=== PATIENT | female | born 1940 | race Caucasian/White ===

== ENCOUNTER 2018-04-10 16:10 | Inpatient (IN) | payer MEDICARE, SELFPAY ==
[2018-04-10 16:11] VITALS: BP 135/80; PULSE 82; RESP 16; TEMP 36.6; O2SAT 99; BMI 40.8
--- NOTE | 2018-04-10 16:29 | CT_ITS ---
STUDY: CT ABDOMEN AND PELVIS WITHOUT CONTRAST REASON FOR EXAM: Female, 77 years old. Left lower quadrant pain. RADIATION DOSAGE (If Supplied By Facility): CTDIvol = ( ) mGy, DLP = ( ) mGycm TECHNIQUE: Transaxial images were obtained from the dome of the diaphragm to the symphysis pubis with oral contrast, and without intravenous contrast. Sagittal and coronal images were reconstructed. Individualized dose optimization techniques were used for this CT. COMPARISON: August 15, 2014 FINDINGS: The visualized lung bases are unremarkable. The visualized portions of the heart are within normal limits. Normal liver. There are surgical clips in the gallbladder fossa consistent with a prior cholecystectomy. Normal spleen. Normal pancreas. Normal bilateral adrenal glands. Normal right kidney. Normal left kidney. There is a small hiatal hernia. Normal small intestine. There is circumferential wall thickening of the descending and sigmoid colon. There are scattered diverticula throughout the sigmoid colon. There is non-visualization of the appendix. There is diffuse atherosclerotic calcification of the abdominal aorta, without a demonstrated aneurysm. Normal inferior vena cava. Normal retroperitoneum. Normal urinary bladder. There is absence of the uterus consistent with a prior hysterectomy. There is a fat-containing interstitial ventral hernia within the right upper abdomen that is grossly stable. There are diffuse degenerative changes of the visualized lumbar spine. CT/Abdomen/Pel W ORAL Cont Only IMPRESSION: Circumferential wall thickening of the descending and sigmoid colon with an appearance consistent with underlying colitis, etiologies include ischemic, infectious and inflammatory colitis. Atherosclerosis. Electronically Signed: Destiny Kenney MD at 19:07 EDT Tel , Service support ,
[2018-04-10] MEDS: Ondansetron 4 MG/2 ML Vial IV (16:46)
[2018-04-10] MEDS: 0.9% Normal Saline 1,000 ML 1000 ML IV (16:46)
[2018-04-10 16:48] LABS: Absolute Lymphocyte Count 1.65 X10^3/ul (0.83-4.51); Absolute Neutrophil Count 7.2 X10^3/uL (2.0-7.7); Basophil# 0.02 X10^3/uL; Basophil% 0.2 % (0-1); Eosinophil# 0.25 X10^3/uL; Eosinophils% 2.5 % (0-5); Hematocrit 41.2 % (37-47); Hemoglobin 13.9 g/dl (12.0-15.0); Lymphocyte # 1.65 X10^3/ul (4.0); Lymphocyte % 16.7 % (19-41); Mean Corp Hgb Conc 33.7 g/gl (32-36); Mean Corpuscular Volume 94.9 fL (81-99); Mean Platelet Vol. 10.3 fl (6.2-12.0); Monocyte# 0.77 X10^3/uL; Monocyte% 7.8 % (0-10); Neutrophil # 7.17 X10^3/uL (2.7-7.7); Neutrophil % 72.7 % (47-70); Platelet Count 191 K/mm3 (150-450); Red Blood Count 4.34 M/mm3 (4.2-5.4); White Blood Count 9.9 K/mm3 (4.4-11.0)
[2018-04-10 16:49] LABS: POSITIVE COUNT NO; POSITIVE DIFFERENTIAL NO; POSITIVE MORPHOLOGY NO
[2018-04-10 16:54] LABS: Mucous, Urine 0 SEEN /hpf (<or=2+); Red Blood Cells-Urine 0 SEEN /hpf (0-5)
[2018-04-10 17:10] LABS: Color, Urine Yellow (Yellow); Glucose, Dipstick Normal (Normal); Ketone-Dipstick Negative (Negative); Leukocyte Esterase-Dipstick 500 /ul (Negative); Nitrite-Dipstick Negative (Negative); Occult Blood-Urine 10 /ul (Negative); Protein-Dipstick 15 mg/dl (Negative); Specific Gravity, Urine 1.015 (1.002-1.030); Urine Bilirubin Dipstick Negative (Negative); Urine Clarity Sl. Cloudy (Clear); Urine Urobilinogen 4 mg/dl (Normal)
[2018-04-10 17:10] LABS: ALB/GLOB Ratio 0.8 RATIO (0.9-2.4); AST(SGOT) 21 U/L (15-37); Alanine Aminotransfer ALT/SGPT 25 U/L (13-56); Albumin, Serum 3.5 g/dL (3.2-5.0); Alkaline Phosphatase 83 U/L (45-117); Anion Gap 8 (5-15); BUN 37 mg/dL (7-18); BUN/Creat Ratio 21.8 RATIO (10-20); Chloride 103 mmol/L (98-107); EST Glomerular Filtration Rate 31 mL/min (>60); Est Glom Filt Rate - Afr Amer 37 mL/min (>60); Estimated Creatinine Clearance 23.17 ml/min; Globulin 4.3 g/dL (2.2-4.2); Glucose 103 mg/dL (74-106); Lipase 58 U/L (73-393); Potassium 3.9 mmol/L (3.5-5.1); Protein, Total 7.8 g/dL (6.4-8.2); Sodium Level 136 mmol/L (136-145)
[2018-04-10 17:16] LABS: Lactic Acid 1.1 mmol/L (0.4-2.0)
[2018-04-10 17:36] LABS: White Blood Cells >100 SEEN /hpf (0-5)
[2018-04-10 17:37] LABS: Bacteria 2+ /hpf (None Seen); Squamous Epithelial Cells - UA 10-25 SEEN /hpf (5-10)
[2018-04-10] MEDS: 0.9% Normal Saline 1,000 ML 125 ML IV (17:45)
[2018-04-10 18:20] VITALS: BP 129/74; PULSE 63; RESP 16; O2SAT 96
[2018-04-10 19:41] VITALS: BP 127/74; PULSE 80; RESP 20; O2SAT 97
[2018-04-10 20:09] VITALS: BP 127/74; PULSE 80; RESP 20; O2SAT 97
--- NOTE | 2018-04-10 20:28 | PCM.HP.STD ---
Problem List (1) Colitis Status: Acute (2) SHAHAB (acute kidney injury) Status: Acute (3) Gastroenteritis Status: Acute (4) Hypotension Status: Acute (5) Hypovolemia Status: Acute (6) Anxiety Status: Chronic (7) Bloating Status: Chronic (8) Calcium deficiency Status: Chronic (9) Restless leg syndrome Status: Chronic History of Present Illness Date of Admission: 04/10/18 Chief Complaint: Colitis The patient is a 77 year old female w/ h/o OA, sjogrens syndrome, RA, and obesity admitted for colitis. She had diarrhea on Friday. She had 10 BMs on Friday and toward the end of the day, she had bloody diarrhea. Over the course of the next day or two, she noted that her diarrhea improved. She has left lower abdominal pain. Pain is sharp but occasionally dull-aching. Nothing appeared to make it better or worse. Pain is so severe that it caused nausea. Pain is constant. Pain is not associated with any other symptoms. Pain is so severe that she is unable to keep food or water down and that she feels dizzy. She went to the ED for further workup. Past Medical History Past Medical History (Chronic Problems): Chronic Problems Vitamin C deficiency (Chronic) Shortness of breath (Chronic) Osteoarthritis of right knee (Chronic) Obesity (Chronic) Sjogrens syndrome (Chronic) HTN (hypertension) (Chronic) Rheumatoid arthritis (Chronic) Osteoarthritis (Chronic) B12 deficiency (Chronic) Bloating (Chronic) Hyperlipidemia (Chronic) Hypokalemia (Chronic) Nausea (Chronic) GERD (gastroesophageal reflux disease) (Chronic) Gastroparesis (Chronic) Dizziness (Chronic) Hypothyroidism (Chronic) Restless leg syndrome (Chronic) Iron deficiency anemia (Chronic) Atrophic vaginitis (Chronic) Overactive bladder (Chronic) Rash (Chronic) Calcium deficiency (Chronic) Anxiety (Chronic) Coronary artery disease (Chronic) Allergies adhesive Allergy (Verified 04/10/18 17:05) Unknown atorvastatin calcium [From Lipitor] Allergy (Verified 04/10/18 17:05) Unknown Iodinated Contrast- Oral and IV Dye [DYEE] Allergy (Verified 04/10/18 19:36) Angioedema ONLY IV CONTRAST DYE iodine Allergy (Verified 04/10/18 17:05) Unknown nitrofurantoin Allergy (Verified 04/10/18 17:05) Unknown piroxicam Allergy (Verified 04/10/18 17:05) Unknown Sulfa (Sulfonamide Antibiotics) Allergy (Verified 04/10/18 17:05) Unknown NARCOTICS Adverse Reaction (Uncoded 04/10/18 17:05) Vomiting Home Medications: Ambulatory Orders Medication Instructions Recorded Albuterol Inhaler [Ventolin Hfa] 2 puff INHALATION Q4H PRN PRN 08/15/14 Aspirin [Aspirin, Baby] 81 mg PO DAILY@0800 08/15/14 Calcium Carb/Vitamin D 1 tab PO DAILY@0800 08/15/14 [Caltrate-600 With Vit D Tab] Clobetasol Propionate/Emoll 30 gm TP MOWEFR 08/15/14 [Clobetasol Emollient 0.05% Crm] Gabapentin [Neurontin] 300 mg PO BID 08/15/14 Meclizine HCl 25 mg PO Q6H PRN 08/15/14 Nitroglycerin [Nitrostat] 0.4 mg SUBLINGUAL Q5M PRN 08/15/14 Ondansetron [Zofran Odt] 4 mg PO Q8H PRN PRN #20 tablet 08/17/14 Metoprolol Succinate [Toprol Xl] 50 mg PO DAILY 10/10/16 Pravastatin 20 mg PO DAILY 10/10/16 Acetaminophen [Tylenol Extra 1,000 mg PO Q8H 04/18/17 Strength] Darifenacin Hydrobromide [Enablex] 7.5 mg PO DAILY 04/18/17 Hydrochlorothiazide [Hctz] 25 mg PO DAILY 04/18/17 Levothyroxine [Synthroid] 200 mcg PO MOTUTHSA 04/18/17 Levothyroxine [Synthroid] 300 mcg PO SUWEFR 04/18/17 Metoclopramide [Reglan] 10 mg PO 4X/DAY 04/18/17 Omeprazole [Prilosec] 20 mg PO DAILY 04/18/17 Vitamin B12 25 mcg PO DAILY 04/18/17 busPIRone [Buspar] 10 mg PO TID 04/18/17 Amlodipine [Norvasc] 5 mg PO DAILY #30 tablet 04/30/17 Estradiol [Estrace Vaginal Cream] 0.5 gm VAGINAL MOFR 04/30/17 Biotin/Keratin [Biotin Plus 1 each PO DAILY 04/10/18 Keratin Tablet] Docusate Sodium [Colace] 200 mg PO QHS 04/10/18 L.acidoph,Paracasei, B.lactis 1 each PO DAILY 04/10/18 [Probiotic] Potassium 99 mg PO DAILY 04/10/18 Surgical History: cholecystectomy, hysterectomy, total knee arthroplasty - Right. 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: - - Atrophic vaginitis Lives: Spouse/ Significant Other Smoking Status: Never smoker Alcohol: None Drugs: None - *Family History Paternal History Items: No pertinent history Maternal History Items: No pertinent history Review of Systems Constitutional: Denies: Chills, Fever, Weight Change HEENT: Denies: Head Aches, Sinus Congestion, Sinus Drainage Cardiovascular: Denies: Chest Pain, Palpitations Respiratory: Denies: Cough, Shortness of breath at rest, Sputum production Gastrointestinal: Reports: Abdominal Pain, Nausea, Vomiting Genitourinary: Denies: Dysuria Musculoskeletal: Denies: Joint Pain, Joint Tenderness Skin: Denies: Rash, Wounds Neurological: Denies: Numbness, Tingling, Focal weakness Psychiatric: Denies: Anxiety, Depression, Homicidal Ideations, Suicidal Ideations Hematologic/ Lymphatic: Denies: Easy Bruising, Easy Bleeding VTE Information - Inpt Only VTE Present on Admission: No VTE Mechan Device Prophylaxis: SCD's VTE Pharm Prophylaxis ordered?: Yes Patient Problems: Active and Suspected Problems Colitis (Acute) SHAHAB (acute kidney injury) (Acute) - Physical Exam General: Alert, Oriented x3, Cooperative HEENT: Atraumatic, PERRLA, EOMI, Normocephalic Neck: Supple, No JVD, Negative Carotid Bruits Lungs: Clear to auscultation, Normal air movement Cardiovascular: Regular rate, No murmurs Abdomen: Bowel Sounds Present, Soft, Tender Extremities: No edema, Capillary Refill Less than 3 Seconds Skin: No rashes, No breakdown Musculoskeletal: No Tenderness to Palpation of Joints or Extremities Neurological: Cranial nerves II-XII grossly intact Psych/Mental Status: Normal Affect, Appropriate Vital Signs Temp Pulse Resp BP Pulse Ox 97.8 F 80 20 H 127/74 H 97 04/10/18 16:11 04/10/18 20:09 04/10/18 20:09 04/10/18 20:09 04/10/18 20:09 Oxygen Delivery Method Room Air Assessment/Plan All Active Problems Colitis (Acute) SHAHAB (acute kidney injury) (Acute) Hypovolemia (Acute) Hypotension (Acute) Gastroenteritis (Acute) 77 year old female w/ h/o OA, sjogrens syndrome, RA, and obesity admitted for colitis. 1) Colitis: CT disclosed circumferential wall thickening of the descending and sigmoid colon with anappearance consistent with underlying colitis. C/w cipro and flagyl. Monitor. 2) SHAHAB: Likely azotemia. If no improvement, will consider workup. Hydration. Monitor. 3) HTN: Resume home meds. Monitor. 4) Prophylaxis: SCD / Heparin.
[2018-04-10 20:57] VITALS: BMI 40.6; BMI 40.7
[2018-04-10] MEDS: Acetaminophen 500 MG Tablet 1000 MG PO (23:00)
[2018-04-10] MEDS: busPIRone 5 MG Tablet 10 MG PO (23:01)
[2018-04-10] MEDS: Ciprofloxacin 400 MG/200 ML BAG 200 MG IV (23:02)
[2018-04-10] MEDS: Heparin Injection (Vial) 5,000 UNIT/ML VIAL 5000 UNIT SC (23:12)
[2018-04-10] MEDS: Pravastatin 20 MG Tablet PO (23:12)
[2018-04-10] MEDS: Gabapentin 300 MG Capsule PO (23:18)
[2018-04-10 23:20] VITALS: PULSE 66; RESP 15; O2SAT 97
[2018-04-11] VITALS (7 sets, daily range): BP systolic 125–157; BP diastolic 64–74; PULSE 60–69; RESP 15–18; TEMP 36.4–36.9; O2SAT 94–98
--- NOTE | 2018-04-11 | ED.VISSUMM ---
- ER Visit Summary Date of Service: 04/11/18 Chief Complaint: Nausea vomiting abdominal pain History of Present Illness: The patient is a 77 F who presents with left lower abdominal pain. She states this began on Friday with diarrhea and some vomiting. Vomiting has subsided. She states she has had a hard time staying hydrated noting that her urine is dark and she feels dizzy. She notes some sweating but no known fevers. She states she has had these symptoms twice in the past and has been told that she has diverticulitis. She has had a colonoscopy in the past and told that that was normal. Physical Examination: Afebrile vital signs are stable Gen: Well-nourished well-developed Head: Normocephalic atraumatic Eyes: Perrl EOMI ENT: TMs clear no rhinorrhea moist mucous membranes Neck: Supple no lymphadenopathy no JVD nontender CVS: Regular rate rhythm no murmurs normal S1-S2 Respiratory: No distress clear to auscultation bilaterally chest nontender Abdomen: Soft tender to palpation in the left mid and lower quadrants. There is some guarding but no rebound. Nondistended normal bowel sounds no masses Back: Nontender Extremity: Nontender no edema Skin: Normal color no rash Neuro: alert orientated ?3 CN II-XII intact normal strength sensation reflexes gait cerebellar Psych: Normal affect normal mood Test Results: BUN of 37 creatinine 1.7. This is off of her baseline from prior labs which are not that recent. CBC is normal. Urinalysis greater than 100 white cells 2+ bacteria 10-25 epithelial cells. Lactic acid 1.1. CT the abdomen pelvis demonstrated changes consistent with a descending colitis. Emergency Department Course and Treatment: Patient received IV fluids and Zosyn. Plan will be admission into the hospital. Impression: 1. Acute descending colitis 2. Acute kidney injury. This note was generated with [employer] dictation software. It may contain incorrect words, spelling, and punctuation that were not noted in review of the chart prior to signing ED Disposition - Plan for ED Patient: Disposition: Acute Care Hospital [facility] Chief Complaint: Abd Pain
[2018-04-11] MEDS: Acetaminophen 500 MG Tablet 1000 MG PO (04:59)
[2018-04-11] MEDS: 0.9% Normal Saline 1,000 ML 125 ML IV ×3 (05:02→21:20)
[2018-04-11] MEDS: Heparin Injection (Vial) 5,000 UNIT/ML VIAL 5000 UNIT SC ×3 (05:11→21:20)
[2018-04-11] MEDS: busPIRone 5 MG Tablet 10 MG PO ×3 (05:11→21:19)
[2018-04-11] MEDS: Levothyroxine 100 MCG Tablet 200 MCG PO (05:12)
[2018-04-11 06:59] LABS: Absolute Lymphocyte Count 1.08 X10^3/ul (0.83-4.51); Absolute Neutrophil Count 3.5 X10^3/uL (2.0-7.7); Basophil# 0.02 X10^3/uL; Basophil% 0.4 % (0-1); Eosinophil# 0.29 X10^3/uL; Eosinophils% 5.2 % (0-5); Hematocrit 36.9 % (37-47); Hemoglobin 12.4 g/dl (12.0-15.0); Lymphocyte # 1.08 X10^3/ul (4.0); Lymphocyte % 19.5 % (19-41); Mean Corp Hgb Conc 33.6 g/gl (32-36); Mean Corpuscular Hgb 32.6 pg (27.0-32.0); Mean Corpuscular Volume 97.1 fL (81-99); Mean Platelet Vol. 10.7 fl (6.2-12.0); Monocyte# 0.59 X10^3/uL; Monocyte% 10.7 % (0-10); Neutrophil # 3.54 X10^3/uL (2.7-7.7); Platelet Count 169 K/mm3 (150-450); RBC Distribution Width CV 12.6 % (11.6-14.6); RBC Distribution Width SD 42.4 fl (35.1-43.9); White Blood Count 5.5 K/mm3 (4.4-11.0)
--- NOTE | 2018-04-11 06:59 | PCM.PN.HOSP ---
Patient Problems: Active and Suspected Problems Colitis (Acute) SHAHAB (acute kidney injury) (Acute) Subjective: Patient notes feeling mildly improved since day prior however still having discomfort to the abdomen but does want to try clear liquids. Discussed options in this morning transition to IV Zosyn, pending stool cultures, allowance of clear liquids with continued IV fluids with improvement of renal function. Patient amenable to remaining inpatient for continued evaluation and to assure diet transition as tolerated, pain control, IV antibiotics. Patient denies fevers, chills, nausea, emesis, chest pain or dyspnea. Objective: Physical Examination: General: awake, alert, oriented x 3 and cooperative, seated upright in bed, but notable discomfort with palpation of the abdomen. Skin: normal color, turgor, no icterus, cyanosis. HEENT: AT/NC, EOMI, PERRLA, improved, MMM. Lungs: CTA bilaterally, moderate effort, moderate decrease BL bases, no rales, ronchi or wheezing. Heart: Regular rate and rhythm; no gallop, rub audible. Abdomen: soft, morbidly obese, notable TTP LUQ and LLQ, vountary guarding, mild rebound, mildly distended, mildly hyperactive BS. Extremities: no cyanosis, clubbing, or edema. Neurological: patient awake, alert, oriented x 3; cognitive function intact; pupils equally reactive to light and accomodation; cranial nerves II-XII grossly normal, moving all 4 extremities, no focal deficits, strength severely globally decreased secondary to acute presentation. Psychiatric: affect appears fatigued, no acute evidence of depressive or anxiety feelings. Vitals/I&O's: Vital Signs Temp Pulse Resp BP Pulse Ox 97.6 F L 63 15 126/68 H 96 04/11/18 04:54 04/11/18 04:54 04/11/18 05:00 04/11/18 04:54 04/11/18 04:54 Oxygen Delivery Method Room Air Weight: 236 lb 15.951 oz Body Mass Index (BMI) 40.6 Intake and Output for Last 24 Hours 04/09/18 04/10/18 04/11/18 23:59 23:59 23:59 Intake Total 1541 / 1541 Output Total 600 / 600 Balance 941 / 941 Laboratory Results 04/11/18 05:50: WBC Pending, RBC Pending, Hgb Pending, Hct Pending, MCV Pending, MCH Pending, MCHC Pending, RDW Pending, RDW Differential Pending, Plt Count Pending, Neut % (Auto) Pending, Absolute Neuts (auto) Pending, Total Counted Pending 04/11/18 05:50: Sodium Pending, Potassium Pending, Chloride Pending, Carbon Dioxide Pending, Anion Gap Pending, BUN Pending, Creatinine Pending, Est GFR (MDRD) Af Amer Pending, Est GFR (MDRD) Non-Af Pending, BUN/Creatinine Ratio Pending, Glucose Pending, Calcium Pending Current Medications Acetaminophen (Tylenol) 1,000 mg PO Q8H [facility] Last Admin: 04/11/18 04:59 Dose: 1,000 mg Albuterol Sulfate (Ventolin Aerosols) 2.5 mg INHALATION Q4H PRN PRN PRN Reason: SOB &/OR WHEEZING Amlodipine Besylate (Norvasc) 5 mg PO DAILY [facility] Aspirin (Aspirin, Baby) 81 mg PO DAILY@0800 [facility] Buspirone HCl (Buspar) 10 mg PO TID [facility] Last Admin: 04/11/18 05:11 Dose: 10 mg Calcium/Vitamin D (Os-Simone 500mg + D) 1 tablet PO DAILY@0800 [facility] Docusate Sodium (Colace) 200 mg PO QHS [facility] Last Admin: 04/10/18 23:03 Dose: Not Given Estradiol (Estrace Vaginal Cream) 0.5 gm VAGINAL MOFR [facility] Gabapentin (Neurontin) 300 mg PO BIDCM [facility] Last Admin: 04/10/18 23:18 Dose: 300 mg Heparin Sodium (Porcine) (Heparin Na) 5,000 unit SC Q8 [facility] Last Admin: 04/11/18 05:11 Dose: 5,000 units Hydrochlorothiazide (Hctz) 25 mg PO DAILY [facility] Sodium Chloride () 1,000 mls @ 125 mls/hr IV .Q8H [facility] Last Admin: 04/11/18 05:02 Dose: 125 mls/hr Ciprofloxacin (Cipro) 400 mg in 200 mls @ 200 mls/hr IV Q24 [facility] Last Admin: 04/10/18 23:02 Dose: 200 mls/hr Metronidazole (Flagyl) 500 mg in 100 mls @ 100 mls/hr IV Q8 [facility] Last Admin: 04/11/18 06:22 Dose: 100 mls/hr Sodium Chloride () 250 mls @ 15 mls/hr IV .[id number] PRN PRN Reason: SALINE FLUSH Lactobacillus Acidophilus (Acidophilus) 1 tablet PO DAILY [facility] Levothyroxine Sodium (Synthroid) 200 mcg PO MoTuThSa@0600 [facility] Last Admin: 04/11/18 05:12 Dose: 200 mcg Levothyroxine Sodium (Synthroid) 300 mcg PO SuWeFr@0600 [facility] Magnesium Hydroxide (Milk Of Magnesia) 30 ml PO DAILY PRN PRN PRN Reason: Constipation Meclizine HCl (Antivert) 25 mg PO Q6H PRN PRN PRN Reason: dizziness Metoprolol Succinate (Toprol Xl (Beta Donn)) 50 mg PO DAILY [facility] Morphine Sulfate () 1 mg IV Q4H PRN PRN PRN Reason: SEVERE PAIN (6-07/29) Nitroglycerin (Nitrostat) 0.4 mg SUBLINGUAL Q5M PRN PRN Reason: Chest Pain Ondansetron HCl (Zofran Odt) 4 mg PO Q8H PRN PRN PRN Reason: NAUSEA/EMESIS Pantoprazole Sodium (Protonix) 20 mg PO DAILY [facility] Pravastatin Sodium (Pravachol) 20 mg PO QHS [facility] Last Admin: 04/10/18 23:12 Dose: 20 mg Sodium Chloride () 5 - 30 ml IV UD PRN PRN Reason: SALINE FLUSH Medical Necessity - Tobacco Use Smoking Status: Never smoker Assessment/Plan All Active Problems Colitis (Acute) SHAHAB (acute kidney injury) (Acute) Hypovolemia (Acute) Hypotension (Acute) Gastroenteritis (Acute) The patient is a 77 y/o F w/ PMHx: HTN, HLD, Rheumatoid Arthritis, OA, Fe Deficiency Anemia, Morbid Obesity, Sjorgren's Syndrome, Hypothyroidism, RLS, CAD, Anxiety and Depression, GERD who presents to the [facility] ED on 04/10/18 with history of onset diarrhea, occasionally bloody in nature w/ associated LLQ abdominal pain with nausea, lightheadedness, dizziness. (1) Acute Descending and Sigmoid Colitis: CT A/P w/ circumferential wall thickening of the descending and sigmoid colon. Admission CBC w/ WBC 9/9 without marked shift, afebrile. Admitted to CT, maintain on hydration, monitor I&Os, maintain clears status per discussion with patient, treat with zosyn regimen, PPI, anti-emetics, pain regimen PRN. Consider diet advancement if clinically improved. (2) Acute kidney injury: Secondary to GI losses with diarrhea and poor intake, #1. Admission BUN/Cr 37/1.70, prior baseline creatinine noted to be 0.91.4 range noted, suspect 0.9 baseline. Will hydrate, hold nephrotoxic medications, pending AM BMP. (3) CAD: Maintain on asa, statin allergy, BB. (4) Hypertension: Continue home regimen including Norvasc, Metoprolol, hold HCTZ given SHAHAB, PRN hydralazine. (5) Hyperlipidemia: Statin allergy. (6) Hypothyroidism: Continue home synthroid regimen. (7) GERD: PPI. (8) Anxiety: Maintain on home buspar regimen. (9) Morbid Obesity: Weight loss and lifestyle changes encouraged, nutrition consulted. (10) DVT Prophylaxis: SCDs, heparin but given blood nature will monitor and hold if appropriate. Code Visit Inpatient E&M: 53743 Subs Hosp L2
[2018-04-11 07:07] LABS: POSITIVE COUNT NO; POSITIVE DIFFERENTIAL NO; POSITIVE MORPHOLOGY NO
--- NOTE | 2018-04-11 07:07 | PN_ITS ---
Patient Problems: Active and Suspected Problems Colitis (Acute) SHAHAB (acute kidney injury) (Acute) Subjective: Patient notes feeling mildly improved since day prior however still having discomfort to the abdomen but does want to try clear liquids. Discussed options in this morning transition to IV Zosyn, pending stool cultures, allowance of clear liquids with continued IV fluids with improvement of renal function. Patient amenable to remaining inpatient for continued evaluation and to assure diet transition as tolerated, pain control, IV antibiotics. Patient denies fevers, chills, nausea, emesis, chest pain or dyspnea. Objective: Physical Examination: General: awake, alert, oriented x 3 and cooperative, seated upright in bed, but notable discomfort with palpation of the abdomen. Skin: normal color, turgor, no icterus, cyanosis. HEENT: AT/NC, EOMI, PERRLA, improved, MMM. Lungs: CTA bilaterally, moderate effort, moderate decrease BL bases, no rales, ronchi or wheezing. Heart: Regular rate and rhythm; no gallop, rub audible. Abdomen: soft, morbidly obese, notable TTP LUQ and LLQ, vountary guarding, mild rebound, mildly distended, mildly hyperactive BS. Extremities: no cyanosis, clubbing, or edema. Neurological: patient awake, alert, oriented x 3; cognitive function intact; pupils equally reactive to light and accomodation; cranial nerves II-XII grossly normal, moving all 4 extremities, no focal deficits, strength severely globally decreased secondary to acute presentation. Psychiatric: affect appears fatigued, no acute evidence of depressive or anxiety feelings. Vitals/I&O's: Vital Signs Temp Pulse Resp BP Pulse Ox 97.6 F L 63 15 126/68 H 96 04/11/18 04:54 04/11/18 04:54 04/11/18 05:00 04/11/18 04:54 04/11/18 04:54 Oxygen Delivery Method Room Air Weight: 236 lb 15.951 oz Body Mass Index (BMI) 40.6 Intake and Output for Last 24 Hours 04/09/18 04/10/18 04/11/18 23:59 23:59 23:59 Intake Total 1541 / 1541 Output Total 600 / 600 Balance 941 / 941 Laboratory Results 04/11/18 05:50: WBC Pending, RBC Pending, Hgb Pending, Hct Pending, MCV Pending , MCH Pending, MCHC Pending, RDW Pending, RDW Differential Pending, Plt Count Pending, Neut % (Auto) Pending, Absolute Neuts (auto) Pending, Total Counted Pending 04/11/18 05:50: Sodium Pending, Potassium Pending, Chloride Pending, Carbon Dioxide Pending, Anion Gap Pending, BUN Pending, Creatinine Pending, Est GFR ( MDRD) Af Amer Pending, Est GFR (MDRD) Non-Af Pending, BUN/Creatinine Ratio Pending, Glucose Pending, Calcium Pending Current Medications Acetaminophen (Tylenol) 1,000 mg PO Q8H [facility] Last Admin: 04/11/18 04:59 Dose: 1,000 mg Albuterol Sulfate (Ventolin Aerosols) 2.5 mg INHALATION Q4H PRN PRN PRN Reason: SOB &/OR WHEEZING Amlodipine Besylate (Norvasc) 5 mg PO DAILY [facility] Aspirin (Aspirin, Baby) 81 mg PO DAILY@0800 [facility] Buspirone HCl (Buspar) 10 mg PO TID [facility] Last Admin: 04/11/18 05:11 Dose: 10 mg Calcium/Vitamin D (Os-Simone 500mg + D) 1 tablet PO DAILY@0800 [facility] Docusate Sodium (Colace) 200 mg PO QHS [facility] Last Admin: 04/10/18 23:03 Dose: Not Given Estradiol (Estrace Vaginal Cream) 0.5 gm VAGINAL MOFR [facility] Gabapentin (Neurontin) 300 mg PO BIDCM [facility] Last Admin: 04/10/18 23:18 Dose: 300 mg Heparin Sodium (Porcine) (Heparin Na) 5,000 unit SC Q8 [facility] Last Admin: 04/11/18 05:11 Dose: 5,000 units Hydrochlorothiazide (Hctz) 25 mg PO DAILY [facility] Sodium Chloride () 1,000 mls @ 125 mls/hr IV .Q8H [facility] Last Admin: 04/11/18 05:02 Dose: 125 mls/hr Ciprofloxacin (Cipro) 400 mg in 200 mls @ 200 mls/hr IV Q24 [facility] Last Admin: 04/10/18 23:02 Dose: 200 mls/hr Metronidazole (Flagyl) 500 mg in 100 mls @ 100 mls/hr IV Q8 [facility] Last Admin: 04/11/18 06:22 Dose: 100 mls/hr Sodium Chloride () 250 mls @ 15 mls/hr IV .[id number] PRN PRN Reason: SALINE FLUSH Lactobacillus Acidophilus (Acidophilus) 1 tablet PO DAILY [facility] Levothyroxine Sodium (Synthroid) 200 mcg PO MoTuThSa@0600 [facility] Last Admin: 04/11/18 05:12 Dose: 200 mcg Levothyroxine Sodium (Synthroid) 300 mcg PO SuWeFr@0600 [facility] Magnesium Hydroxide (Milk Of Magnesia) 30 ml PO DAILY PRN PRN PRN Reason: Constipation Meclizine HCl (Antivert) 25 mg PO Q6H PRN PRN PRN Reason: dizziness Metoprolol Succinate (Toprol Xl (Beta Donn)) 50 mg PO DAILY [facility] Morphine Sulfate () 1 mg IV Q4H PRN PRN PRN Reason: SEVERE PAIN (6-07/29) Nitroglycerin (Nitrostat) 0.4 mg SUBLINGUAL Q5M PRN PRN Reason: Chest Pain Ondansetron HCl (Zofran Odt) 4 mg PO Q8H PRN PRN PRN Reason: NAUSEA/EMESIS Pantoprazole Sodium (Protonix) 20 mg PO DAILY [facility] Pravastatin Sodium (Pravachol) 20 mg PO QHS [facility] Last Admin: 04/10/18 23:12 Dose: 20 mg Sodium Chloride () 5 - 30 ml IV UD PRN PRN Reason: SALINE FLUSH Medical Necessity - Tobacco Use Smoking Status: Never smoker Assessment/Plan All Active Problems Colitis (Acute) SHAHAB (acute kidney injury) (Acute) Hypovolemia (Acute) Hypotension (Acute) Gastroenteritis (Acute) The patient is a 77 y/o F w/ PMHx: HTN, HLD, Rheumatoid Arthritis, OA, Fe Deficiency Anemia, Morbid Obesity, Sjorgren's Syndrome, Hypothyroidism, RLS, CAD , Anxiety and Depression, GERD who presents to the [facility] ED on 04/10/18 with history of onset diarrhea, occasionally bloody in nature w/ associated LLQ abdominal pain with nausea, lightheadedness, dizziness. (1) Acute Descending and Sigmoid Colitis: CT A/P w/ circumferential wall thickening of the descending and sigmoid colon. Admission CBC w/ WBC 9/9 without marked shift, afebrile. Admitted to [place], maintain on hydration, monitor I &Os, maintain clears status per discussion with patient, treat with zosyn regimen, PPI, anti-emetics, pain regimen PRN. Consider diet advancement if clinically improved. (2) Acute kidney injury: Secondary to GI losses with diarrhea and poor intake, # 1. Admission BUN/Cr 37/1.70, prior baseline creatinine noted to be 0.91.4 range noted, suspect 0.9 baseline. Will hydrate, hold nephrotoxic medications, pending AM BMP. (3) CAD: Maintain on asa, statin allergy, BB. (4) Hypertension: Continue home regimen including Norvasc, Metoprolol, hold HCTZ given SHAHAB, PRN hydralazine. (5) Hyperlipidemia: Statin allergy. (6) Hypothyroidism: Continue home synthroid regimen. (7) GERD: PPI. (8) Anxiety: Maintain on home buspar regimen. (9) Morbid Obesity: Weight loss and lifestyle changes encouraged, nutrition consulted. (10) DVT Prophylaxis: SCDs, heparin but given blood nature will monitor and hold if appropriate. Code Visit Inpatient E&M: 50672 Subs Hosp L2
[2018-04-11 07:10] LABS: Anion Gap 6 (5-15); BUN 24 mg/dL (7-18); BUN/Creat Ratio 19.7 RATIO (10-20); Calcium,Total 8.5 mg/dL (8.5-10.1); Chloride 108 mmol/L (98-107); Creatinine, Serum 1.22 mg/dL (0.55-1.02); EST Glomerular Filtration Rate 45 mL/min (>60); Est Glom Filt Rate - Afr Amer 55 mL/min (>60); Estimated Creatinine Clearance 32.29 ml/min; Glucose 92 mg/dL (74-106); Potassium 3.9 mmol/L (3.5-5.1); Sodium Level 143 mmol/L (136-145)
[2018-04-11] MEDS: Piperacil/Tazobactam 3.375 GM/50 ML ML IV ×3 (09:05→21:19)
[2018-04-11] MEDS: Aspirin 81 MG TAB.CHEW PO (09:06)
[2018-04-11] MEDS: Metoprolol(XL)Succ 50 MG Tablet PO (09:06)
[2018-04-11] MEDS: amLODIPine 5 MG Tablet PO (09:06)
[2018-04-11] MEDS: Gabapentin 300 MG Capsule PO ×2 (09:07→21:19)
[2018-04-11] MEDS: Calcium Carb/Vitamin D 1 TABLET Tablet PO (09:07)
[2018-04-11] MEDS: Pantoprazole Sodium 20 MG Tablet PO ×2 (09:08→21:19)
--- NOTE | 2018-04-11 13:40 | CASEMGMT ---
RN CM Face to Face with patient for initial transition planning/care coordination assessment. RN CM introduced self and role at [facility]. Patient lying in bed, alert and oriented, spouse at bedside. Patient willing to participate in assessment and is able to answer all questions appropriately. Care providers, pharmacy, and demographics verified. See link attached. Patient wishes to discharge home, denies need for home health at this time. Patient states she has no further needs or concerns at this time. CM to follow for discharge planning needs that may arise. Disposition plan: Patient to discharge home with family support and follow-up plans in place.
[2018-04-11] MEDS: Pravastatin 20 MG Tablet PO (21:19)
[2018-04-12 02:00] VITALS: BP 136/77; PULSE 61; RESP 16; TEMP 36.6; O2SAT 96
[2018-04-12] MEDS: 0.9% Normal Saline 1,000 ML 125 ML IV (05:38)
[2018-04-12] MEDS: Heparin Injection (Vial) 5,000 UNIT/ML VIAL 5000 UNIT SC (05:39)
[2018-04-12] MEDS: Piperacil/Tazobactam 3.375 GM/50 ML ML IV (05:43)
[2018-04-12] MEDS: Levothyroxine 150 MCG Tablet 300 MCG PO (05:43)
[2018-04-12] MEDS: busPIRone 5 MG Tablet 10 MG PO (05:43)
[2018-04-12 07:17] LABS: Absolute Lymphocyte Count 0.68 X10^3/ul (0.83-4.51); Absolute Neutrophil Count 1.9 X10^3/uL (2.0-7.7); Basophil# 0.01 X10^3/uL; Basophil% 0.3 % (0-1); Eosinophil# 0.32 X10^3/uL; Eosinophils% 9.9 % (0-5); Hematocrit 39.9 % (37-47); Hemoglobin 12.9 g/dl (12.0-15.0); Lymphocyte # 0.68 X10^3/ul (4.0); Lymphocyte % 21.1 % (19-41); Mean Corp Hgb Conc 32.3 g/gl (32-36); Mean Corpuscular Hgb 30.9 pg (27.0-32.0); Mean Corpuscular Volume 95.7 fL (81-99); Mean Platelet Vol. 9.8 fl (6.2-12.0); Monocyte# 0.35 X10^3/uL; Monocyte% 10.8 % (0-10); Neutrophil # 1.87 X10^3/uL (2.7-7.7); Neutrophil % 57.9 % (47-70); POSITIVE COUNT NO; POSITIVE DIFFERENTIAL NO; POSITIVE MORPHOLOGY NO; Platelet Count 165 K/mm3 (150-450); RBC Distribution Width CV 12.8 % (11.6-14.6); RBC Distribution Width SD 44.3 fl (35.1-43.9); Red Blood Count 4.17 M/mm3 (4.2-5.4); White Blood Count 3.2 K/mm3 (4.4-11.0)
[2018-04-12 07:33] LABS: ALB/GLOB Ratio 0.8 RATIO (0.9-2.4); AST(SGOT) 16 U/L (15-37); Alanine Aminotransfer ALT/SGPT 20 U/L (13-56); Albumin, Serum 2.9 g/dL (3.2-5.0); Alkaline Phosphatase 56 U/L (45-117); Anion Gap 4 (5-15); BUN 11 mg/dL (7-18); BUN/Creat Ratio 11.2 RATIO (10-20); Calcium,Total 8.6 mg/dL (8.5-10.1); Chloride 113 mmol/L (98-107); Creatinine, Serum 0.98 mg/dL (0.55-1.02); EST Glomerular Filtration Rate 58 mL/min (>60); Est Glom Filt Rate - Afr Amer 70 mL/min (>60); Globulin 3.7 g/dL (2.2-4.2); Glucose 93 mg/dL (74-106); Potassium 4.2 mmol/L (3.5-5.1); Protein, Total 6.6 g/dL (6.4-8.2); Sodium Level 143 mmol/L (136-145)
[2018-04-12 07:36] VITALS: BP 172/86; PULSE 69; RESP 16; TEMP 36.4; O2SAT 94
--- NOTE | 2018-04-12 08:20 | PCM.DC ---
- Discharge Diagnoses Current Active Problems: Current Active and Chronic Problems (1) Acute Descending and Sigmoid Colitis (2) Acute kidney injury, Secondary to GI losses with diarrhea and poor intake, #1 (3) CAD (4) Hypertension (5) Hyperlipidemia (6) Hypothyroidism (7) GERD (8) Anxiety (9) Morbid Obesity (10) High risk for STEPHANIE, benefit from study You will use the following diet at home:: Regular Your food should be the consistency of: Regular Your liquids should be the consistency of: Regular/Thin Discharge Activity: May not drive while taking narcotic pain medications. May resume sexual activity in: 10-14 days Weight Bearing Status: Weight bearing as tolerated Call your doctor if you observe: Fever of 101 or Higher, Inability to urinate, Inability to have a bowel movement, Shortness of breath, Dizziness, Fainting spells, Chest pain, Uncontrolled pain, - - Recurrent intractable abdominal pain, nausea, emesis or diarrhea. Instructions: Eating Heart-Healthy Food: Using the DASH Plan, Eating Heart-Healthy Foods, Controlling Your Cholesterol, Low-Fat Cooking Tips, How to Billiard Table Assembler the Size of Servings, ED Gastroenteritis Bacterial Additional Instructions: During the admission you additionally had acute kidney injury from the gastrointestinal illness (vomiting, diarrhea) as well as ability to maintain appropriate hydration. This has resolved upon discharge; however, we encourage you to continue to appropriately hydrate and your primary care physician may consider repeating your basic metabolic panel at your follow-up. If you have any questions or concerns you may contact the hospital or your primary care physician. Dr. Sarah Holbrook was one of the hospital physicians who was involved in your care. A summary of your visit will be available for your primary care physician immediately upon your discharge. Additionally, if you have not already you would benefit from a sleep study assessment. Please discuss this with your primary care physician. Allergies/Adverse Reactions: Allergies adhesive Allergy (Verified 04/10/18 17:05) Unknown atorvastatin calcium [From Lipitor] Allergy (Verified 04/10/18 17:05) Unknown Iodinated Contrast- Oral and IV Dye [DYEE] Allergy (Verified 04/10/18 19:36) Angioedema ONLY IV CONTRAST DYE iodine Allergy (Verified 04/10/18 17:05) Unknown nitrofurantoin Allergy (Verified 04/10/18 17:05) Unknown piroxicam Allergy (Verified 04/10/18 17:05) Unknown Sulfa (Sulfonamide Antibiotics) Allergy (Verified 04/10/18 17:05) Unknown NARCOTICS Adverse Reaction (Uncoded 04/10/18 17:05) Vomiting Medications to take at Discharge Albuterol Inhaler [Ventolin Hfa] 2 puff INHALATION Q4H PRN PRN 08/15/14 Aspirin [Aspirin, Baby] 81 mg PO DAILY@0800 08/15/14 Calcium Carb/Vitamin D [Caltrate-600 With Vit D Tab] 1 tab PO DAILY@0800 08/15/14 Clobetasol Propionate/Emoll [Clobetasol Emollient 0.05% Crm] 30 gm TP MOWEFR 08/15/14 Gabapentin [Neurontin] 300 mg PO BID 08/15/14 Meclizine HCl 25 mg PO Q6H PRN 08/15/14 Nitroglycerin [Nitrostat] 0.4 mg SUBLINGUAL Q5M PRN 08/15/14 Metoprolol Succinate [Toprol Xl] 50 mg PO DAILY 10/10/16 Pravastatin 20 mg PO DAILY 10/10/16 Acetaminophen [Tylenol Extra Strength] 1,000 mg PO Q8H 04/18/17 Darifenacin Hydrobromide [Enablex] 7.5 mg PO DAILY 04/18/17 Hydrochlorothiazide [Hctz] 25 mg PO DAILY 04/18/17 Levothyroxine [Synthroid] 200 mcg PO MOTUTHSA 04/18/17 Levothyroxine [Synthroid] 300 mcg PO SUWEFR 04/18/17 Metoclopramide [Reglan] 10 mg PO 4X/DAY 04/18/17 Omeprazole [Prilosec] 20 mg PO DAILY 04/18/17 Vitamin B12 25 mcg PO DAILY 04/18/17 busPIRone [Buspar] 10 mg PO TID 04/18/17 Amlodipine [Norvasc] 5 mg PO DAILY #30 tablet 04/30/17 Estradiol [Estrace Vaginal Cream] 0.5 gm VAGINAL MOFR 04/30/17 Biotin/Keratin [Biotin Plus Keratin Tablet] 1 each PO DAILY 04/10/18 Docusate Sodium [Colace] 200 mg PO QHS 04/10/18 Potassium 99 mg PO DAILY 04/10/18 Amox/Clavulanate Tablet [Augmentin Tablet] 875 mg PO Q12H 8 Days #16 tab 04/12/18 Hydrocodone Bitart/Apap 5-325 [[place] 5/325] 1 - 2 tab PO Q6H PRN PRN 3 Days #10 tab 04/12/18 L.acidoph,Paracasei, B.lactis [Probiotic] 1 ea PO BID #60 cap 04/12/18 Ondansetron [Zofran Odt] 4 mg PO Q8H PRN PRN #20 tab 04/12/18 The following prescriptions were given: Hydrocodone Bitart/Apap 5-325 [[place] 5/325] 1 - 2 tab PO Q6H PRN PRN 3 Days #10 tab PRN Reason: Moderate-severe pain Ondansetron [Zofran Odt] 4 mg PO Q8H PRN PRN #20 tab PRN Reason: Nausea/Emesis Amox/Clavulanate Tablet [Augmentin Tablet] 875 mg PO Q12H 8 Days #16 tab L.acidoph,Paracasei, B.lactis [Probiotic] 1 ea PO BID #60 cap Primary Care Physician: Jeronimo Niño III, MD [Primary Care Provider] - Please follow up with your Primary Care Physician in: Follow-up within 3-5 days to review admission, have re-assessment. Proposed Discharge Date: 04/12/18
--- NOTE | 2018-04-12 08:30 | DCINST_ITS ---
- Discharge Diagnoses Current Active Problems: Current Active and Chronic Problems (1) Acute Descending and Sigmoid Colitis (2) Acute kidney injury, Secondary to GI losses with diarrhea and poor intake, # 1 (3) CAD (4) Hypertension (5) Hyperlipidemia (6) Hypothyroidism (7) GERD (8) Anxiety (9) Morbid Obesity (10) High risk for STEPHANIE, benefit from study You will use the following diet at home:: Regular Your food should be the consistency of: Regular Your liquids should be the consistency of: Regular/Thin Discharge Activity: May not drive while taking narcotic pain medications. May resume sexual activity in: 10-14 days Weight Bearing Status: Weight bearing as tolerated Call your doctor if you observe: Fever of 101 or Higher, Inability to urinate, Inability to have a bowel movement, Shortness of breath, Dizziness, Fainting spells, Chest pain, Uncontrolled pain, - - Recurrent intractable abdominal pain , nausea, emesis or diarrhea. Instructions: Eating Heart-Healthy Food: Using the DASH Plan, Eating Heart- Healthy Foods, Controlling Your Cholesterol, Low-Fat Cooking Tips, How to Pot Feeder the Size of Servings, ED Gastroenteritis Bacterial Additional Instructions: During the admission you additionally had acute kidney injury from the gastrointestinal illness (vomiting, diarrhea) as well as ability to maintain appropriate hydration. This has resolved upon discharge; however, we encourage you to continue to appropriately hydrate and your primary care physician may consider repeating your basic metabolic panel at your follow- up. If you have any questions or concerns you may contact the hospital or your primary care physician. Dr. Saarh Holbrook was one of the hospital physicians who was involved in your care. A summary of your visit will be available for your primary care physician immediately upon your discharge. Additionally, if you have not already you would benefit from a sleep study assessment. Please discuss this with your primary care physician. Allergies/Adverse Reactions: Allergies adhesive Allergy (Verified 04/10/18 17:05) Unknown atorvastatin calcium [From Lipitor] Allergy (Verified 04/10/18 17:05) Unknown Iodinated Contrast- Oral and IV Dye [DYEE] Allergy (Verified 04/10/18 19:36) Angioedema ONLY IV CONTRAST DYE iodine Allergy (Verified 04/10/18 17:05) Unknown nitrofurantoin Allergy (Verified 04/10/18 17:05) Unknown piroxicam Allergy (Verified 04/10/18 17:05) Unknown Sulfa (Sulfonamide Antibiotics) Allergy (Verified 04/10/18 17:05) Unknown NARCOTICS Adverse Reaction (Uncoded 04/10/18 17:05) Vomiting Medications to take at Discharge Albuterol Inhaler [Ventolin Hfa] 2 puff INHALATION Q4H PRN PRN 08/15/14 Aspirin [Aspirin, Baby] 81 mg PO DAILY@0800 08/15/14 Calcium Carb/Vitamin D [Caltrate-600 With Vit D Tab] 1 tab PO DAILY@0800 Clobetasol Propionate/Emoll [Clobetasol Emollient 0.05% Crm] 30 gm TP MOWEFR Gabapentin [Neurontin] 300 mg PO BID 08/15/14 Meclizine HCl 25 mg PO Q6H PRN 08/15/14 Nitroglycerin [Nitrostat] 0.4 mg SUBLINGUAL Q5M PRN 08/15/14 Metoprolol Succinate [Toprol Xl] 50 mg PO DAILY 10/10/16 Pravastatin 20 mg PO DAILY 10/10/16 Acetaminophen [Tylenol Extra Strength] 1,000 mg PO Q8H 04/18/17 Darifenacin Hydrobromide [Enablex] 7.5 mg PO DAILY 04/18/17 Hydrochlorothiazide [Hctz] 25 mg PO DAILY 04/18/17 Levothyroxine [Synthroid] 200 mcg PO MOTUTHSA 04/18/17 Levothyroxine [Synthroid] 300 mcg PO SUWEFR 04/18/17 Metoclopramide [Reglan] 10 mg PO 4X/DAY 04/18/17 Omeprazole [Prilosec] 20 mg PO DAILY 04/18/17 Vitamin B12 25 mcg PO DAILY 04/18/17 busPIRone [Buspar] 10 mg PO TID 04/18/17 Amlodipine [Norvasc] 5 mg PO DAILY #30 tablet 04/30/17 Estradiol [Estrace Vaginal Cream] 0.5 gm VAGINAL MOFR 04/30/17 Biotin/Keratin [Biotin Plus Keratin Tablet] 1 each PO DAILY 04/10/18 Docusate Sodium [Colace] 200 mg PO QHS 04/10/18 Potassium 99 mg PO DAILY 04/10/18 Amox/Clavulanate Tablet [Augmentin Tablet] 875 mg PO Q12H 8 Days #16 tab Hydrocodone Bitart/Apap 5-325 [[place] 5/325] 1 - 2 tab PO Q6H PRN PRN 3 Days #10 tab 04/12/18 L.acidoph,Paracasei, B.lactis [Probiotic] 1 ea PO BID #60 cap 04/12/18 Ondansetron [Zofran Odt] 4 mg PO Q8H PRN PRN #20 tab 04/12/18 The following prescriptions were given: Hydrocodone Bitart/Apap 5-325 [[place] 5/325] 1 - 2 tab PO Q6H PRN PRN 3 Days #10 tab PRN Reason: Moderate-severe pain Ondansetron [Zofran Odt] 4 mg PO Q8H PRN PRN #20 tab PRN Reason: Nausea/Emesis Amox/Clavulanate Tablet [Augmentin Tablet] 875 mg PO Q12H 8 Days #16 tab L.acidoph,Paracasei, B.lactis [Probiotic] 1 ea PO BID #60 cap Primary Care Physician: Jeronimo Niño III, MD [Primary Care Provider] - Please follow up with your Primary Care Physician in: Follow-up within 3-5 days to review admission, have re-assessment. Proposed Discharge Date: 04/12/18
--- NOTE | 2018-04-12 08:30 | PCM.DC.SUM ---
Discharge Date and Diagnosis - Problem List Patient Problems: Active and Suspected Problems Colitis (Acute) SHAHAB (acute kidney injury) (Acute) Date of Admission: 04/10/18 Date of Discharge: 04/12/18 - Primary Discharge Diagnosis Active and Suspected Problems (1) Acute Descending and Sigmoid Colitis (2) Acute kidney injury, Secondary to GI losses with diarrhea and poor intake, #1 (3) CAD (4) Hypertension (5) Hyperlipidemia (6) Hypothyroidism (7) GERD (8) Anxiety (9) Morbid Obesity (10) High risk for STEPHANIE, benefit from study (11) Possible UTI, UA notable upon ED presentation but poor sample, notable SEC, UCx w/ GNR but again poor sample and concurrent #1 - Secondary Discharge Diagnosis Chronic Problems Vitamin C deficiency (Chronic) Shortness of breath (Chronic) Osteoarthritis of right knee (Chronic) Obesity (Chronic) Sjogrens syndrome (Chronic) HTN (hypertension) (Chronic) Rheumatoid arthritis (Chronic) Osteoarthritis (Chronic) B12 deficiency (Chronic) Bloating (Chronic) Hyperlipidemia (Chronic) Hypokalemia (Chronic) Nausea (Chronic) GERD (gastroesophageal reflux disease) (Chronic) Gastroparesis (Chronic) Dizziness (Chronic) Hypothyroidism (Chronic) Restless leg syndrome (Chronic) Iron deficiency anemia (Chronic) Atrophic vaginitis (Chronic) Overactive bladder (Chronic) Rash (Chronic) Calcium deficiency (Chronic) Anxiety (Chronic) Coronary artery disease (Chronic) Hospital Course and Treatment Operations: None Procedures: None Summary of Care Provided: The patient is a 77 y/o F w/ PMHx: HTN, HLD, Rheumatoid Arthritis, OA, Fe Deficiency Anemia, Morbid Obesity, Sjorgren's Syndrome, Hypothyroidism, RLS, CAD, Anxiety and Depression, GERD who presented to the [facility] ED on 04/10/18 with history of onset diarrhea, occasionally bloody in nature w/ associated LLQ abdominal pain with nausea, lightheadedness, dizziness. CT A/P w/ circumferential wall thickening of the descending and sigmoid colon. Admission CBC w/ WBC 9/ without marked shift, afebrile. Admitted to [place], maintained on hydration, monitored I&Os, maintained on initially clears and slowly advanced to cardiac diet, initially treated w/ cipro and flagyl-->transitioned to zosyn, PPI, anti-emetics, pain regimen PRN. Upon admission evidence SHAHAB secondary to GI losses with diarrhea and poor intake. Admission BUN/Cr 37/1.70, prior baseline creatinine noted to be 1.0, hydrated, held nephrotoxic medications temporarily, repeat improved, 04/12/18 BUN/Cr 11/0.98. Patient discharged to home on completion abx therapy augmentin, increased lactobacillus regimen while on abx therapy, PRN zofran, small amount pain regimen with recommendation for continued slow diet advancement, avoidance of irritating/fatty foods with follow-up with her PCP within 3-5 days to review admission and consideration for repeat BMP at follow-up. DAY OF DISCHARGE PROGRESS NOTE: Subjective: Patient without acute event overnight per self and nursing report. Patient tolerated full liquid diet advancement to regular diet this morning without issue. Patient notes resolution of prior nausea, emesis and marked improvement of abdominal discomfort with only residual mild left lower quadrant discomfort. Patient denies fever, chills, chest pain or dyspnea. Patient agreeable to discharge to home given improvement. Patient will be discharged with follow-up with primary care physician within 3-5 days. Objective: T 98, heart rate 61, BP 136/77, respiratory rate 16, 96% on room air. Physical Examination: General: awake, alert, oriented x 3 and cooperative, seated upright in the bed, improved appearance. Skin: normal color, turgor, no icterus, cyanosis. HEENT: AT/NC, EOMI, PERRLA, MMM. Lungs: CTA bilaterally, moderate effort, mild decrease BL bases, no rales, ronchi or wheezing; Heart: Regular rate and rhythm; no gallop, rub audible. Abdomen: soft, obese, mild LLQ TTP, much improved from prior, no rebound or guarding, mildly distended, improved normalizing BS. Extremities: no cyanosis, clubbing, or edema. Neurological: patient awake, alert, oriented x 3; cognitive function appears intact upon questioning,; pupils equally reactive to light and accomodation; cranial nerves II-XII grossly normal, moving all 4 extremities, strength improved, mildly globally decreased. Psychiatric: affect appears normal, no acute evidence of depressive or anxiety feelings. Assessment and Plan: Please see hospital summary above. Discharge Activity: May not drive while taking narcotic pain medications. May resume sexual activity in: 10-14 days Weight Bearing Status: Weight bearing as tolerated Call your doctor if you observe: Fever of 101 or Higher, Inability to urinate, Inability to have a bowel movement, Shortness of breath, Dizziness, Fainting spells, Chest pain, Uncontrolled pain, - - Recurrent intractable abdominal pain, nausea, emesis or diarrhea. Home Medications: Medications to take at Discharge Albuterol Inhaler [Ventolin Hfa] 2 puff INHALATION Q4H PRN PRN 08/15/14 Aspirin [Aspirin, Baby] 81 mg PO DAILY@0800 08/15/14 Calcium Carb/Vitamin D [Caltrate-600 With Vit D Tab] 1 tab PO DAILY@0800 08/15/14 Clobetasol Propionate/Emoll [Clobetasol Emollient 0.05% Crm] 30 gm TP MOWEFR 08/15/14 Gabapentin [Neurontin] 300 mg PO BID 08/15/14 Meclizine HCl 25 mg PO Q6H PRN 08/15/14 Nitroglycerin [Nitrostat] 0.4 mg SUBLINGUAL Q5M PRN 08/15/14 Metoprolol Succinate [Toprol Xl] 50 mg PO DAILY 10/10/16 Pravastatin 20 mg PO DAILY 10/10/16 Acetaminophen [Tylenol Extra Strength] 1,000 mg PO Q8H 04/18/17 Darifenacin Hydrobromide [Enablex] 7.5 mg PO DAILY 04/18/17 Hydrochlorothiazide [Hctz] 25 mg PO DAILY 04/18/17 Levothyroxine [Synthroid] 200 mcg PO MOTUTHSA 04/18/17 Levothyroxine [Synthroid] 300 mcg PO SUWEFR 04/18/17 Metoclopramide [Reglan] 10 mg PO 4X/DAY 04/18/17 Omeprazole [Prilosec] 20 mg PO DAILY 04/18/17 Vitamin B12 25 mcg PO DAILY 04/18/17 busPIRone [Buspar] 10 mg PO TID 04/18/17 Amlodipine [Norvasc] 5 mg PO DAILY #30 tablet 04/30/17 Estradiol [Estrace Vaginal Cream] 0.5 gm VAGINAL MOFR 04/30/17 Biotin/Keratin [Biotin Plus Keratin Tablet] 1 each PO DAILY 04/10/18 Docusate Sodium [Colace] 200 mg PO QHS 04/10/18 Potassium 99 mg PO DAILY 04/10/18 Amox/Clavulanate Tablet [Augmentin Tablet] 875 mg PO Q12H 8 Days #16 tab 04/12/18 Hydrocodone Bitart/Apap 5-325 [[place] 5/325] 1 - 2 tab PO Q6H PRN PRN 3 Days #10 tab 04/12/18 L.acidoph,Paracasei, B.lactis [Probiotic] 1 ea PO BID #60 cap 04/12/18 Ondansetron [Zofran Odt] 4 mg PO Q8H PRN PRN #20 tab 04/12/18 Following Prescrptions Were Given to Patient: Hydrocodone Bitart/Apap 5-325 [[place] 5/325] 1 - 2 tab PO Q6H PRN PRN 3 Days #10 tab PRN Reason: Moderate-severe pain Ondansetron [Zofran Odt] 4 mg PO Q8H PRN PRN #20 tab PRN Reason: Nausea/Emesis Amox/Clavulanate Tablet [Augmentin Tablet] 875 mg PO Q12H 8 Days #16 tab L.acidoph,Paracasei, B.lactis [Probiotic] 1 ea PO BID #60 cap Primary Care Physician: Jeronimo Niño III, MD [Primary Care Provider] - Please follow up with your Primary Care Physician in: Follow-up within 3-5 days to review admission, have re-assessment. Patient Instructions: Controlling Your Cholesterol, Low-Fat Cooking Tips, How to Associate Business Analyst the Size of Servings, Eating Heart-Healthy Food: Using the DASH Plan, Eating Heart-Healthy Foods, ED Gastroenteritis Bacterial Disposition: Home Minutes spent on discharge:: 35 Patient Condition:: Fair Medical Necessity - Tobacco Use Smoking Status: Never smoker Meaningful Use Info Meaningful Use Diagnoses (Choose all that apply): None applicable Code Visit Inpatient E&M: 51571 Disch Hosp
--- NOTE | 2018-04-12 08:47 | DS.PCM_ITS ---
Discharge Date and Diagnosis - Problem List Patient Problems: Active and Suspected Problems Colitis (Acute) SHAHAB (acute kidney injury) (Acute) Date of Admission: 04/10/18 Date of Discharge: 04/12/18 - Primary Discharge Diagnosis Active and Suspected Problems (1) Acute Descending and Sigmoid Colitis (2) Acute kidney injury, Secondary to GI losses with diarrhea and poor intake, # 1 (3) CAD (4) Hypertension (5) Hyperlipidemia (6) Hypothyroidism (7) GERD (8) Anxiety (9) Morbid Obesity (10) High risk for STEPHANIE, benefit from study (11) Possible UTI, UA notable upon ED presentation but poor sample, notable SEC , UCx w/ GNR but again poor sample and concurrent #1 - Secondary Discharge Diagnosis Chronic Problems Vitamin C deficiency (Chronic) Shortness of breath (Chronic) Osteoarthritis of right knee (Chronic) Obesity (Chronic) Sjogrens syndrome (Chronic) HTN (hypertension) (Chronic) Rheumatoid arthritis (Chronic) Osteoarthritis (Chronic) B12 deficiency (Chronic) Bloating (Chronic) Hyperlipidemia (Chronic) Hypokalemia (Chronic) Nausea (Chronic) GERD (gastroesophageal reflux disease) (Chronic) Gastroparesis (Chronic) Dizziness (Chronic) Hypothyroidism (Chronic) Restless leg syndrome (Chronic) Iron deficiency anemia (Chronic) Atrophic vaginitis (Chronic) Overactive bladder (Chronic) Rash (Chronic) Calcium deficiency (Chronic) Anxiety (Chronic) Coronary artery disease (Chronic) Hospital Course and Treatment Operations: None Procedures: None Summary of Care Provided: The patient is a 77 y/o F w/ PMHx: HTN, HLD, Rheumatoid Arthritis, OA, Fe Deficiency Anemia, Morbid Obesity, Sjorgren's Syndrome, Hypothyroidism, RLS, CAD , Anxiety and Depression, GERD who presented to the [facility] ED on 04/10/18 with history of onset diarrhea, occasionally bloody in nature w/ associated LLQ abdominal pain with nausea, lightheadedness, dizziness. CT A/P w/ circumferential wall thickening of the descending and sigmoid colon. Admission CBC w/ WBC 9/ without marked shift, afebrile. Admitted to [place], maintained on hydration, monitored I&Os, maintained on initially clears and slowly advanced to cardiac diet, initially treated w/ cipro and flagyl-->transitioned to zosyn, PPI, anti-emetics, pain regimen PRN. Upon admission evidence SHAHAB secondary to GI losses with diarrhea and poor intake. Admission BUN/Cr 37/1.70, prior baseline creatinine noted to be 1.0, hydrated, held nephrotoxic medications temporarily, repeat improved, 04/12/18 BUN/Cr 11/0.98. Patient discharged to home on completion abx therapy augmentin, increased lactobacillus regimen while on abx therapy, PRN zofran, small amount pain regimen with recommendation for continued slow diet advancement, avoidance of irritating/fatty foods with follow -up with her PCP within 3-5 days to review admission and consideration for repeat BMP at follow-up. DAY OF DISCHARGE PROGRESS NOTE: Subjective: Patient without acute event overnight per self and nursing report. Patient tolerated full liquid diet advancement to regular diet this morning without issue. Patient notes resolution of prior nausea, emesis and marked improvement of abdominal discomfort with only residual mild left lower quadrant discomfort. Patient denies fever, chills, chest pain or dyspnea. Patient agreeable to discharge to home given improvement. Patient will be discharged with follow-up with primary care physician within 3-5 days. Objective: T 98, heart rate 61, BP 136/77, respiratory rate 16, 96% on room air. Physical Examination: General: awake, alert, oriented x 3 and cooperative, seated upright in the bed, improved appearance. Skin: normal color, turgor, no icterus, cyanosis. HEENT: AT/NC, EOMI, PERRLA, MMM. Lungs: CTA bilaterally, moderate effort, mild decrease BL bases, no rales, ronchi or wheezing; Heart: Regular rate and rhythm; no gallop, rub audible. Abdomen: soft, obese, mild LLQ TTP, much improved from prior, no rebound or guarding, mildly distended, improved normalizing BS. Extremities: no cyanosis, clubbing, or edema. Neurological: patient awake, alert, oriented x 3; cognitive function appears intact upon questioning,; pupils equally reactive to light and accomodation; cranial nerves II-XII grossly normal, moving all 4 extremities, strength improved, mildly globally decreased. Psychiatric: affect appears normal, no acute evidence of depressive or anxiety feelings. Assessment and Plan: Please see hospital summary above. Discharge Activity: May not drive while taking narcotic pain medications. May resume sexual activity in: 10-14 days Weight Bearing Status: Weight bearing as tolerated Call your doctor if you observe: Fever of 101 or Higher, Inability to urinate, Inability to have a bowel movement, Shortness of breath, Dizziness, Fainting spells, Chest pain, Uncontrolled pain, - - Recurrent intractable abdominal pain , nausea, emesis or diarrhea. Home Medications: Medications to take at Discharge Albuterol Inhaler [Ventolin Hfa] 2 puff INHALATION Q4H PRN PRN 08/15/14 Aspirin [Aspirin, Baby] 81 mg PO DAILY@0800 08/15/14 Calcium Carb/Vitamin D [Caltrate-600 With Vit D Tab] 1 tab PO DAILY@0800 Clobetasol Propionate/Emoll [Clobetasol Emollient 0.05% Crm] 30 gm TP MOWEFR Gabapentin [Neurontin] 300 mg PO BID 08/15/14 Meclizine HCl 25 mg PO Q6H PRN 08/15/14 Nitroglycerin [Nitrostat] 0.4 mg SUBLINGUAL Q5M PRN 08/15/14 Metoprolol Succinate [Toprol Xl] 50 mg PO DAILY 10/10/16 Pravastatin 20 mg PO DAILY 10/10/16 Acetaminophen [Tylenol Extra Strength] 1,000 mg PO Q8H 04/18/17 Darifenacin Hydrobromide [Enablex] 7.5 mg PO DAILY 04/18/17 Hydrochlorothiazide [Hctz] 25 mg PO DAILY 04/18/17 Levothyroxine [Synthroid] 200 mcg PO MOTUTHSA 04/18/17 Levothyroxine [Synthroid] 300 mcg PO SUWEFR 04/18/17 Metoclopramide [Reglan] 10 mg PO 4X/DAY 04/18/17 Omeprazole [Prilosec] 20 mg PO DAILY 04/18/17 Vitamin B12 25 mcg PO DAILY 04/18/17 busPIRone [Buspar] 10 mg PO TID 04/18/17 Amlodipine [Norvasc] 5 mg PO DAILY #30 tablet 04/30/17 Estradiol [Estrace Vaginal Cream] 0.5 gm VAGINAL MOFR 04/30/17 Biotin/Keratin [Biotin Plus Keratin Tablet] 1 each PO DAILY 04/10/18 Docusate Sodium [Colace] 200 mg PO QHS 04/10/18 Potassium 99 mg PO DAILY 04/10/18 Amox/Clavulanate Tablet [Augmentin Tablet] 875 mg PO Q12H 8 Days #16 tab Hydrocodone Bitart/Apap 5-325 [Tyler 5/325] 1 - 2 tab PO Q6H PRN PRN 3 Days #10 tab 04/12/18 L.acidoph,Paracasei, B.lactis [Probiotic] 1 ea PO BID #60 cap 04/12/18 Ondansetron [Zofran Odt] 4 mg PO Q8H PRN PRN #20 tab 04/12/18 Following Prescrptions Were Given to Patient: Hydrocodone Bitart/Apap 5-325 [Tyler 5/325] 1 - 2 tab PO Q6H PRN PRN 3 Days #10 tab PRN Reason: Moderate-severe pain Ondansetron [Zofran Odt] 4 mg PO Q8H PRN PRN #20 tab PRN Reason: Nausea/Emesis Amox/Clavulanate Tablet [Augmentin Tablet] 875 mg PO Q12H 8 Days #16 tab L.acidoph,Paracasei, B.lactis [Probiotic] 1 ea PO BID #60 cap Primary Care Physician: Jeronimo Niño III, MD [Primary Care Provider] - Please follow up with your Primary Care Physician in: Follow-up within 3-5 days to review admission, have re-assessment. Patient Instructions: Controlling Your Cholesterol, Low-Fat Cooking Tips, How to Booky the Size of Servings, Eating Heart-Healthy Food: Using the DASH Plan, Eating Heart-Healthy Foods, ED Gastroenteritis Bacterial Disposition: Home Minutes spent on discharge:: 35 Patient Condition:: Fair Medical Necessity - Tobacco Use Smoking Status: Never smoker Meaningful Use Info Meaningful Use Diagnoses (Choose all that apply): None applicable Code Visit Inpatient E&M: 34903 Disch Hosp
[2018-04-12 08:55] VITALS: PULSE 62
[2018-04-12] MEDS: Metoprolol(XL)Succ 50 MG Tablet PO (08:55)
[2018-04-12] MEDS: Calcium Carb/Vitamin D 1 TABLET Tablet PO (08:55)
[2018-04-12] MEDS: amLODIPine 5 MG Tablet PO (08:55)
[2018-04-12] MEDS: Pantoprazole Sodium 20 MG Tablet PO (08:55)
[2018-04-12] MEDS: Aspirin 81 MG TAB.CHEW PO (08:56)
[2018-04-12] MEDS: hydroCHLOROthiazide 25 MG Tablet PO (09:00)
--- NOTE | 2018-04-14 15:40 | CASEMGMT ---
SHELLEY STEIN Discharge Follow-up Phone Call: DELMY: Fercho Strata: 3 Call Date: 04/14/18 Discharge Date: 04/12/18 Time of Call: 1535 Duration: 5 min Admitting Diagnosis: Colitis RN CM completed follow-up phone call after recent hospitalization. Patient states that she is feeling much better. This RN CM reviewed discharge prescriptions with patient and she said she did not have those prescriptions. RN CM verified that [facility] and advised patient to make sure she picks those up. Patient denied further questions or concerns at this time. Patient states that she has a follow-up appt with Dr. Niño .
== END 2018-04-12 12:58 | disposition home or self-care (01) | DRG 392 ==
LOC: ED 17:25 → MS3 20:10
PROVIDERS: Admitting Provider Internal Medicine; Emergency Provider Emergency Medicine; Family Provider Family Medicine; PCP Family Medicine; Visit Provider Family Medicine
DX: K52.9 Noninfective gastroenteritis and colitis, unspecified (principal); N17.9 Acute kidney failure, unspecified; N39.0 Urinary tract infection, site not specified; Z68.41 Body mass index [BMI] 40.0-44.9, adult; I25.10 Atherosclerotic heart disease of native coronary artery without angina pectoris; I10 Essential (primary) hypertension; E78.5 Hyperlipidemia, unspecified; E03.9 Hypothyroidism, unspecified; K21.9 Gastro-esophageal reflux disease without esophagitis; F41.9 Anxiety disorder, unspecified; E66.01 Morbid (severe) obesity due to excess calories; E54 Ascorbic acid deficiency; E53.8 Deficiency of other specified B group vitamins; M06.9 Rheumatoid arthritis, unspecified; M19.90 Unspecified osteoarthritis, unspecified site; G25.81 Restless legs syndrome; N95.2 Postmenopausal atrophic vaginitis; E58 Dietary calcium deficiency; K31.84 Gastroparesis; D50.9 Iron deficiency anemia, unspecified
CPT/HCPCS: 36415; 74176; 80048; 80053; 81001; 83605; 83630; 83690; 85025; 87077; 87086; 87088; 87186; 87493; 87506; 97802; 99282; J7030; J7040; A4216; J0744; J2405

== ENCOUNTER 2021-11-23 14:07 | Emergency (ER) | payer MEDICARE, SELFPAY ==
[2021-11-23 14:08] VITALS: BP 177/87; PULSE 63; RESP 15; TEMP 35.7; O2SAT 97; BMI 36.6
--- NOTE | 2021-11-23 14:35 | CT_ITS ---
STUDY: CT ABDOMEN AND PELVIS WITHOUT CONTRAST REASON FOR EXAM: Female, 81 years old. Left flank pain. RADIATION DOSAGE (If Supplied By Facility): CTDIvol = ( 19.69 ) mGy, DLP = ( 1013.52 ) mGycm TECHNIQUE: Transaxial images were obtained from the dome of the diaphragm to the symphysis pubis without oral contrast, and without intravenous contrast. Sagittal and coronal images were reconstructed. Individualized dose optimization techniques were used for this CT. COMPARISON: Comparison is made with prior study dated 04/10/2018. FINDINGS: Stable mild degree of increased markings at the lung bases suggestive of scarring. Mild coronary artery calcification. Normal liver. There are surgical clips in the gallbladder fossa consistent with a prior cholecystectomy. Normal spleen. Normal pancreas. Normal bilateral adrenal glands. Normal right kidney. Normal left kidney. There is a small hiatal hernia. Normal small intestine. There are multiple colonic diverticula consistent with diverticulosis. There is non-visualization of the appendix. There is diffuse atherosclerotic calcification of the abdominal aorta and its major visceral branches, without a demonstrated aneurysm. Normal inferior vena cava. Normal retroperitoneum. Normal urinary bladder. There is absence of the uterus consistent with a prior hysterectomy. Stable right paracentral anterior ventral hernia containing fat. The neck of the hernia measures 4.2 cm. There are diffuse degenerative changes of the visualized lumbar spine. CT/Abdomen/Pelvis without Cont IMPRESSION: Stable mild scarring at the lung bases. The patient is status post cholecystectomy. Sigmoid diverticulosis with no radiographic ends of diverticulitis. Stable right para central anterior ventral hernia containing fat. Electronically Signed: Rafael Herrera MD at 15:41 EST ,
--- NOTE | 2021-11-23 14:38 | ED.VIS.BACK ---
HPI History of Present Illness Chief Complaint: Back Narrative Narrative: 81-year-old female presenting with left flank pain. She states this is been going on for about 5 days. Is getting worse for her. She states that sharp and located in the left flank. Sometimes it radiates to the anterior abdomen and sometimes it does not. She denies any urinary complaints. She does express to me that she has some nausea associated with her pain. She states that when this happened she was laying in her bed and rolled over and felt acute onset pain. She states it hurts worse with twisting and movement. No saddle anesthesia. Patient does not have loss of bowel control. She does have a bladder stimulator. This is located on the right lower back. She has no urinary changes. Denies dysuria or hematuria. No history of kidney stones. PFSH PFSH Home Medications albuterol sulfate [Ventolin HFA] 2 puff INHALATION Q4H PRN PRN 08/15/14 [History Last Taken Unknown] aspirin 81 mg PO DAILY@0800 08/15/14 [History Last Taken 08/14/14] calcium carbonate-vitamin D3 [Caltrate with Vitamin D3] 1 tab PO DAILY@0800 08/15/14 [History Last Taken 08/14/14] clobetasol-emollient 30 g TP MOWEFR 08/15/14 [History Last Taken 08/12/14] gabapentin 300 mg PO BID 08/15/14 [History Last Taken 08/14/14] meclizine 25 mg PO Q6H PRN 08/15/14 [History Last Taken 08/15/14] nitroglycerin 0.4 mg SUBLINGUAL Q5M PRN 08/15/14 [History Last Taken Unknown] Pravastatin 20 mg PO DAILY 10/10/16 [History Last Taken Unknown] metoprolol succinate [Toprol XL] 50 mg PO DAILY 10/10/16 [History Last Taken Unknown] Vitamin B12 25 mcg PO DAILY 04/18/17 [History Last Taken Unknown] acetaminophen [Tylenol Extra Strength] 1,000 mg PO Q8H 04/18/17 [History Last Taken Unknown] buspirone 10 mg PO TID 04/18/17 [History Last Taken Unknown] darifenacin [Enablex] 7.5 mg PO DAILY 04/18/17 [History Last Taken Unknown] hydrochlorothiazide 25 mg PO DAILY 04/18/17 [History Last Taken Unknown] levothyroxine 200 mcg PO MOTUTHSA 04/18/17 [History Last Taken Unknown] levothyroxine 300 mcg PO SUWEFR 04/18/17 [History Last Taken Unknown] metoclopramide HCl 10 mg PO 4X/DAY 04/18/17 [History Last Taken Unknown] omeprazole 20 mg PO DAILY 04/18/17 [History Last Taken Unknown] amlodipine 5 mg PO DAILY #30 tab 04/30/17 [Rx Last Taken Unknown] estradiol [Estrace] 0.5 g VAGINAL MOFR 04/30/17 [Rx Last Taken Unknown] biotin-keratin [Biotin Plus Keratin] 1 ea PO DAILY 04/10/18 [History Last Taken Unknown] docusate sodium [DOK] 200 mg PO QHS 04/10/18 [History Last Taken Unknown] potassium 99 mg PO DAILY 04/10/18 [History Last Taken Unknown] L.acidoph, paracasei,B. lactis 1 ea PO BID #60 cap 04/12/18 [Rx Last Taken Unknown] amoxicillin-pot clavulanate 875 mg PO Q12H 8 Days #16 tab 04/12/18 [Rx Last Taken Unknown] hydrocodone-acetaminophen 1 - 2 tab PO Q6H PRN PRN 3 Days #10 tab 04/12/18 [Rx Last Taken Unknown] ondansetron 4 mg PO Q8H PRN PRN #20 tab 04/12/18 [Rx Last Taken Unknown] simethicone 80 mg PO 4X/DAY #60 tab 04/12/18 [Rx Last Taken Unknown] cefpodoxime 200 mg PO Q12H 10 Days #20 tab 11/23/21 [Rx Last Taken Unknown] Allergy/AdvReac Type Severity Reaction Status Date / Time adhesive Allergy Unknown Verified 11/23/21 14:11 atorvastatin calcium Allergy Unknown Verified 11/23/21 14:11 [From Lipitor] Iodinated Contrast Media Allergy Angioedema Verified 11/23/21 14:11 [DYEE] iodine Allergy Unknown Verified 11/23/21 14:11 nitrofurantoin Allergy Unknown Verified 11/23/21 14:11 piroxicam Allergy Unknown Verified 11/23/21 14:11 Sulfa (Sulfonamide Allergy Unknown Verified 11/23/21 14:11 Antibiotics) NARCOTICS AdvReac Vomiting Uncoded 11/23/21 14:11 Social History Smoking Status: Never smoker ROS ROS ED Constitutional Constitutional ED: Denies chills or fever(s) Eyes Eyes: Denies blurry vision or diplopia ENT ENT ED: Denies rhinorrhea or sore throat Cardiovascular Cardiovascular: Denies chest pain or palpitations Respiratory/Chest Respiratory/Chest: Denies dyspnea or sputum Gastrointestinal Gastrointestinal: Reports abdominal pain and nausea; Denies constipation, diarrhea or vomiting Genitourinary Genitourinary ED: Denies dysuria or hematuria Musculoskeletal Musculoskeletal: Reports back pain; Denies neck pain Integumentary Denies rash Neurologic Neurologic: Denies headache(s) or paresthesias EXAM Physical Exam Const Vital Signs: 11/23/21 14:08 Temperature 96.3 F L Temperature Source Temporal Pulse Rate 63 Respiratory Rate 15 Blood Pressure 177/87 H Blood Pressure Mean 117 Pulse Ox 97 Oxygen Delivery Method Room Air Positive well nourished General Appearance ED: NAD; Negative for pallor HEENT Reports moist mucous membranes Negative for trauma Eyes PERRL and EOMs intact bilaterally Resp normal respiratory effort and clear to auscultation bilaterally Cardio regular rate and regular rhythm GI normal to inspection, nondistended, normoactive bowel sounds Back/Spine Back/Spine Narrative: Lumbar paraspinal muscular tenderness approximately the level of L1-L2. No midline spinal deformity or step-off. Patient has CVA tenderness. Extremity normal to inspection General Extremety ED: Negative for tenderness Neuro oriented x3 Sensorium / Orientation: alert Psych mental status grossly normal Skin General Skin Exam: Negative for jaundice or pallor MDM MDM MDM Narrative Medical decision making narrative: Patient presenting with flank pain which she describes as acute in onset. She does not have history of kidney stones but does have tenderness to palpation in the left flank as well as CVA tenderness. She denies any urinary symptoms however her urinalysis was positive for infection with positive nitrates and 500 leukocyte esterase with 10-25 white blood cells. Urine was sent for culture and a gram Rocephin was given. Her CBC shows no leukocytosis and her hemoglobin hematocrit are stable. Platelets are normal. Creatinine is elevated from baseline at 1.42. She was given a liter of normal saline. Her creatinine was 0.98 in 2018. This is the most recent comparison. CT of the abdomen pelvis does not show any acute intra-abdominal abnormalities. Specifically there is no hydronephrosis or stranding. Neck likely on the left. Given that she has UTI and flank pain I will put her on Cefpodoxime 200 mg p.o. twice daily and treat her as pyelonephritis. I did consider giving Bactrim however the patient has an SHAHAB presumably. Patient has tramadol at home and is allergic to other medications so I have limited ability to treat her pain. She is counseled that she can take Tylenol but to stay away from NSAIDs until she has follow-up with renal function test. Patient is given return precautions. Impression: 1. Pyelonephritis 2. Acute kidney injury Lab Data Attestation: I reviewed the patient's lab results. Labs: Laboratory Results - last 24 hr 11/23/21 11/23/21 11/23/21 14:53 14:53 15:00 WBC 6.0 RBC 4.35 Hgb 13.9 Hct 41.5 MCV 95.4 MCH 32.0 MCHC 33.5 RDW Std Deviation 42.3 RDW Coeff of Yelitza 12.2 Plt Count 274 MPV 10.8 Immature Gran % (Auto) 0.500 Neut % (Auto) 55.9 Lymph % (Auto) 26.2 [place] % (Auto) 10.9 H Eos % (Auto) 5.8 H Baso % (Auto) 0.7 Absolute Neuts (auto) 3.4 Absolute Lymphs (auto) 1.58 Nucleated RBC % 0 Sodium 138 Potassium 4.2 Chloride 105 Carbon Dioxide 29.0 Anion Gap 4 L BUN 27 H Creatinine 1.42 H Estim Creat Clear Calc 25.92 Est GFR (MDRD) Af Amer 45 L Est GFR (MDRD) Non-Af 38 L BUN/Creatinine Ratio 19.0 Glucose 101 Calcium 8.9 Urine Color Yellow Urine Clarity Clear Urine pH 6.0 Ur Specific [place] 1.010 Urine Protein Negative Urine Glucose (UA) Normal Urine Ketones Negative Urine Occult Blood Negative Urine Nitrite Positive H Urine Bilirubin Negative Urine Urobilinogen Normal Ur Leukocyte Esterase 500 H Urine RBC 0 SEEN Urine WBC 10-25 SEEN Ur Squamous Epith Cells 0-5 SEEN Urine Bacteria 0 SEEN Urine Mucus 0 SEEN Radiography Diagnostic Testing: Clinical Impression(s) from Imaging Studies Abdomen/Pelvis CT 11/23/21 14:35 IMPRESSION: Stable mild scarring at the lung bases. The patient is status post cholecystectomy. Sigmoid diverticulosis with no radiographic ends of diverticulitis. Stable right para central anterior ventral hernia containing fat. Electronically Signed: Rafael Herrera MD at 15:41 EST , Discharge Plan Triage Chief Complaint: Back ED Provider: Eliezer Peck Dx/Rx/DC Orders Instructions: ED Pyelonephritis, Female (Adult) Prescriptions: New cefpodoxime 200 mg tablet 200 mg PO Q12H 10 Days Qty: 20 RF: 0 No Action meclizine 25 MG tablet 25 mg PO Q6H PRN (Reason: dizziness) RF: 0 nitroglycerin 0.4 MG tablet 0.4 mg sublingual Q5M PRN (Reason: Chest Pain) RF: 0 gabapentin 300 MG capsule 300 mg PO BID RF: 0 aspirin 81 MG tablet,chewable 81 mg PO DAILY@0800 RF: 0 albuterol sulfate [Ventolin HFA] 1 INHALER inhaler 2 puff inhalation Q4H PRN PRN (Reason: Sob &/Or Wheezing) RF: 0 clobetasol-emollient 30 GM cream 30 g TP MOWEFR RF: 0 calcium carbonate-vitamin D3 [Caltrate with Vitamin D3] 1 TAB tablet 1 tab PO DAILY@0800 RF: 0 metoprolol succinate [Toprol XL] 50 MG tablet extended release 24 hr 50 mg PO DAILY RF: 0 Pravastatin tablet 20 mg PO DAILY RF: 0 buspirone 5 MG tablet 10 mg PO TID RF: 0 acetaminophen [Tylenol Extra Strength] 500 MG tablet 1,000 mg PO Q8H RF: 0 levothyroxine 100 MCG tablet 200 mcg PO MOTUTHSA RF: 0 levothyroxine 150 MCG tablet 300 mcg PO SUWEFR RF: 0 omeprazole 20 MG capsule 20 mg PO DAILY RF: 0 hydrochlorothiazide 25 MG tablet 25 mg PO DAILY RF: 0 metoclopramide HCl 10 MG tablet 10 mg PO 4X/DAY RF: 0 darifenacin [Enablex] 7.5 MG tablet 7.5 mg PO DAILY RF: 0 Vitamin B12 25 mcg PO DAILY RF: 0 amlodipine 5 MG tablet 5 mg PO DAILY Qty: 30 RF: 0 estradiol [Estrace] 42.5 GM cream 0.5 g vaginal MOFR RF: 0 potassium 99 MG tablet 99 mg PO DAILY RF: 0 docusate sodium [DOK] 100 MG capsule 200 mg PO QHS RF: 0 biotin-keratin [Biotin Plus Keratin] 1 EACH tablet 1 ea PO DAILY RF: 0 hydrocodone-acetaminophen 1 TABLET tablet 1 - 2 tab PO Q6H PRN PRN (Reason: Moderate-severe pain) 3 Days Qty: 10 RF: 0 amoxicillin-pot clavulanate 875 MG tablet 875 mg PO Q12H 8 Days Qty: 16 RF: 0 ondansetron 4 MG tablet 4 mg PO Q8H PRN PRN (Reason: Nausea/Emesis) Qty: 20 RF: 0 L.acidoph, paracasei,B. lactis 1 EACH capsule 1 ea PO BID Qty: 60 RF: 0 simethicone 80 MG tablet 80 mg PO 4X/DAY Qty: 60 RF: 0 Primary Care Provider: Jamal Darby Referrals: Jamal Darby MD [Primary Care Provider] - Disposition Disposition: Home, Self Care Discharge Date/Time: 11/23/21 16:42
[2021-11-23] MEDS: Ketorolac 15 MG/ML Vial IV (15:06)
[2021-11-23] MEDS: Ondansetron 4 MG/2 ML Vial IV (15:07)
[2021-11-23 15:15] LABS: Absolute Lymphocyte Count 1.58 X10^3/uL (0.83-4.51); Absolute Neutrophil Count 3.4 X10^3/uL (2.0-7.7); Basophil# 0.04 X10^3/uL; Basophil% 0.7 % (0-1); Eosinophil# 0.35 X10^3/uL; Eosinophils% 5.8 % (0-5); Hematocrit 41.5 % (37-47); Hemoglobin 13.9 g/dL (12.0-15.0); Lymphocyte # 1.58 X10^3/ul (0.83-4.51); Lymphocyte % 26.2 % (19-41); Mean Corp Hgb Conc 33.5 g/dL (32-36); Mean Corpuscular Volume 95.4 fL (81-99); Mean Platelet Vol. 10.8 fl (6.2-12.0); Monocyte# 0.66 X10^3/uL; Monocyte% 10.9 % (0-10); NRBC Flagged by Analyzer 0 % (0-5); Neutrophil # 3.37 X10^3/uL (2.7-7.7); Neutrophil % 55.9 % (47-70); Platelet Count 274 K/mm3 (150-450); RBC Distribution Width CV 12.2 % (11.6-14.6); RBC Distribution Width SD 42.3 fl (35.1-43.9); Red Blood Count 4.35 M/mm3 (4.2-5.4)
[2021-11-23 15:18] LABS: Bacteria 0 SEEN /hpf (None Seen); Mucous, Urine 0 SEEN /hpf (<or=2+); Red Blood Cells-Urine 0 SEEN /hpf (0-5)
[2021-11-23 15:30] LABS: Anion Gap 4 (5-15); BUN 27 mg/dL (7-18); Calcium,Total 8.9 mg/dL (8.5-10.1); Chloride 105 mmol/L (98-107); Creatinine, Serum 1.42 mg/dL (0.55-1.02); EST Glomerular Filtration Rate 38 mL/min (>60); Est Glom Filt Rate - Afr Amer 45 mL/min (>60); Estimated Creatinine Clearance 25.92 ml/min; Glucose 101 mg/dL (74-106); Potassium 4.2 mmol/L (3.5-5.1); Sodium Level 138 mmol/L (136-145)
[2021-11-23] MEDS: Orphenadrine 60 MG/2 ML Ampul IM (15:35)
[2021-11-23] MEDS: 0.9% Normal Saline 1,000 ML 999 ML IV (15:40)
[2021-11-23 15:44] LABS: Color, Urine Yellow (Yellow); Glucose, Dipstick Normal (Normal); Ketone-Dipstick Negative (Negative); Leukocyte Esterase-Dipstick 500 /ul (Negative); Nitrite-Dipstick Positive (Negative); Occult Blood-Urine Negative /ul (Negative); Protein-Dipstick Negative (Negative); Urine Bilirubin Dipstick Negative (Negative); Urine Clarity Clear (Clear); Urine Urobilinogen Normal (Normal)
[2021-11-23 15:51] LABS: White Blood Cells 10-25 SEEN /hpf (0-5)
[2021-11-23 15:52] LABS: Squamous Epithelial Cells - UA 0-5 SEEN /hpf (5-10)
== END 2021-11-23 16:42 | disposition home or self-care (01) ==
PROVIDERS: Emergency Provider Student in an Organized Health Care Education/Training Program; PCP Family Medicine; Visit Provider Student in an Organized Health Care Education/Training Program
DX: N12 Tubulo-interstitial nephritis, not specified as acute or chronic (principal); N17.9 Acute kidney failure, unspecified
CPT/HCPCS: 74176; 80048; 81001; 85025; 87086; 87088; 96361; 96372; 96374; 96375; 99284; J7030; A4216; J2405

== ENCOUNTER → 2023-01-29 | Outpatient (CLI) | payer MEDICARE, SELFPAY ==
--- NOTE | 2023-01-29 08:30 | RAD_ITS ---
EXAM: FL Upper GI Double Contrast with [employer] and delayed images if performed HISTORY: DYSPHAGIA COMPARISON: None Technique: 50 seconds of fluoroscopy, 8 fluoroscopic images obtained FINDINGS: Swallowing was initiated normally. No nasopharyngeal reflux or aspiration. No Zenker''s diverticulum noted on the lateral view. Normal peristaltic activity noted in the proximal and mid esophagus. The distal esophagus however demonstrated multiple tertiary contractions. There is also a prominent hiatal hernia with evidence of both intraesophageal and GE reflux. Stomach distends. No rugal fold enlargement or mucosal ulceration noted. The duodenal C-loop is not elongated and ligament of Treitz is in its normal expected position left of the spine. A 13 mm barium pill passed through the esophagus without difficulty. RAD/Upper GI w/BA Swallow IMPRESSION: Presbyesophagus with intraesophageal and GE reflux Hiatal hernia Electronically Signed: Maxwell Ayala MD at 9:14 EDT ,
== END | disposition home or self-care (01) ==
PROVIDERS: PCP Family Medicine; Referring Provider Family Medicine; Visit Provider Family Medicine
DX: R13.19 Other dysphagia (principal)
CPT/HCPCS: 74246

== ENCOUNTER 2023-03-13 15:39 | Emergency (ER) | payer MEDICARE, SELFPAY ==
[2023-03-13 15:40] VITALS: BP 198/71; PULSE 63; RESP 18; TEMP 36.6; O2SAT 99
--- NOTE | 2023-03-13 16:18 | RAD_ITS ---
STUDY: X-RAY - RIGHT ANKLE REASON FOR EXAM: Female, 82 years old. fall TECHNIQUE: 3 view(s) of the ankle. COMPARISON: None. FINDINGS: There is nondisplaced fracture of the distal fibula proximal to the lateral malleolus. No other acute abnormalities are seen. Normal visualized distal tibia. Normal medial and lateral malleoli. Normal tibiotalar articulation and ankle mortise. Normal visualized talus and calcaneus. The visualized subtalar, talonavicular, calcaneocuboid and tarsal articulations are normal. Mild lateral soft tissue swelling. RAD/Ankle min 3 Views IMPRESSION: There is nondisplaced fracture of the distal fibula proximal to the lateral malleolus. Electronically Signed: Amish Rizvi MD at 17:13 EDT ,
--- NOTE | 2023-03-13 16:18 | RAD_ITS ---
STUDY: X-RAY - UNILATERAL RIBS ( LEFT ) WITH CHEST REASON FOR EXAM: Female, 82 years old. fall TECHNIQUE - RIBS: 4 view(s) of the ribs. TECHNIQUE - CHEST: Single AP portable view of the chest. COMPARISON: None. FINDINGS - RIBS: Normal visualized ribs without a demonstrated fracture. FINDINGS - CHEST: The lungs are clear and expanded. There is no demonstrated pleural abnormality. Normal size heart. There are 2 implanted cardiac monitors. Normal mediastinum and kathryn. Normal visualized pulmonary arteries. There is atherosclerotic calcification of the aortic arch with tortuosity. There are diffuse degenerative changes of the visualized thoracic spine. Normal visualized ribs, clavicles, and shoulders. There is no demonstrated abnormality of the visualized soft tissue structures of the upper abdomen. RAD/Ribs Uni Min 3V w/PA Chest IMPRESSION: RIBS: Normal x-ray examination of the ribs. CHEST: No definite acute or significant abnormality seen. Electronically Signed: Amish Rizvi MD at 17:25 EDT ,
--- NOTE | 2023-03-13 16:23 | EX.ED.DYSGE1 ---
HPI <MARY ANN Carrera - Last Filed: 03/13/23 17:39> History of Present Illness Chief Complaint: Lower Extremity Injury Narrative Narrative: Patient is an 82-year-old female with history of Sjogren's disease, hypertension, arthritis, she presents to the emergency department after receiving news that she might have a fractured ankle after a fall that occurred 7 days ago. Patient states she tripped in the house, falling to her left landing on her left arm, left chest. Patient also rolled her right ankle. On Friday which was 2 days ago, the patient received x-rays of the right ankle as well as the left chest. She got a call today that her right ankle was fractured to go to the emergency department. She states that the ankle does not feel as bad as the left side of her chest. Patient does have bruising to left arm, right ankle and foot. She has been ambulatory. She denies any head or neck injury, denies any LOC. PFS <MARY ANN Carrera - Last Filed: 03/13/23 17:39> [facility] Medical History CKD (chronic kidney disease) Esophageal dysphagia Hyperthyroidism Orthostatic hypotension STEPHANIE (obstructive sleep apnea) Home Medications aspirin 81 mg chewable tablet 81 mg PO DAILY@0800 08/15/14 [History Last Taken 08/14/14] calcium carbonate 600 mg-vitamin D3 20 mcg (800 unit) tablet (Caltrate with Vitamin D3) 1 tab PO DAILY@0800 08/15/14 [History Last Taken 08/14/14] clobetasol-emollient 0.05 % topical cream 30 g TP MOWEFR 08/15/14 [History Last Taken 08/12/14] gabapentin 300 mg capsule 300 mg PO BID 08/15/14 [History Last Taken 08/14/14] meclizine 25 mg tablet 25 mg PO Q6H PRN dizziness 08/15/14 [History Last Taken 08/15/14] nitroglycerin 0.4 mg sublingual tablet 0.4 mg sublingual Q5M PRN Chest Pain 08/15/14 [History Last Taken Unknown] Pravastatin 20 mg PO DAILY 10/10/16 [History Last Taken Unknown] metoprolol succinate 50 mg tablet,extended release 24 hr (Toprol XL) 50 mg PO DAILY 10/10/16 [History Last Taken Unknown] Vitamin B12 25 mcg PO DAILY 04/18/17 [History Last Taken Unknown] hydrochlorothiazide 25 mg tablet 25 mg PO DAILY 04/18/17 [History Last Taken Unknown] levothyroxine 100 mcg tablet 200 mcg PO MOTUTHSA 04/18/17 [History Last Taken Unknown] levothyroxine 150 mcg tablet 300 mcg PO SUWEFR 04/18/17 [History Last Taken Unknown] metoclopramide HCl 10 mg tablet 10 mg PO 4X/DAY 04/18/17 [History Last Taken Unknown] omeprazole 20 mg capsule,delayed release 20 mg PO DAILY 04/18/17 [History Last Taken Unknown] amlodipine 5 mg tablet 5 mg PO DAILY #30 tabs 04/30/17 [Rx Last Taken Unknown] estradiol 0.01% (0.1 mg/gram) vaginal cream (Estrace) 0.5 g vaginal MOFR 04/30/17 [Rx Last Taken Unknown] biotin 10,000 mcg-keratin 100 mg tablet (Biotin Plus Keratin) 1 ea PO DAILY 04/10/18 [History Last Taken Unknown] docusate sodium 100 mg capsule (DOK) 200 mg PO QHS 04/10/18 [History Last Taken Unknown] potassium 99 mg tablet 99 mg PO DAILY 04/10/18 [History Last Taken Unknown] L.acidoph, paracasei,B. lactis 10 billion cell capsule 1 ea PO BID #60 caps 04/12/18 [Rx Last Taken Unknown] amoxicillin 875 mg-potassium clavulanate 125 mg tablet 875 mg PO Q12H Colitis 8 days #16 tabs 04/12/18 [Rx Last Taken Unknown] hydrocodone-acetaminophen 5-325mg 5mg-325mg 1 - 2 tab PO Q6H PRN PRN Moderate-severe pain 3 days #10 tabs 04/12/18 [Rx Last Taken Unknown] ondansetron 4 mg disintegrating tablet 4 mg PO Q8H PRN PRN Nausea/Emesis #20 tabs 04/12/18 [Rx Last Taken Unknown] simethicone 80 mg chewable tablet 80 mg PO 4X/DAY #60 tabs 04/12/18 [Rx Last Taken Unknown] cefpodoxime 200 mg tablet 200 mg PO Q12H 10 days #20 tabs 11/23/21 [Rx Last Taken Unknown] atorvastatin 80 mg tablet 80 mg PO QPM 02/04/23 [History Last Taken Unknown] isosorbide mononitrate 60 mg tablet,extended release 24 hr 60 mg PO DAILY 02/04/23 [History Last Taken Unknown] lisinopril 20 mg tablet 20 mg PO DAILY 02/04/23 [History Last Taken Unknown] spironolactone 25 mg tablet 12.5 mg PO DAILY 02/04/23 [History Last Taken Unknown] tolterodine 4 mg capsule,extended release 24 hr (Detrol LA) 4 mg PO DAILY 02/04/23 [History Last Taken Unknown] Allergy/AdvReac Type Severity Reaction Status Date / Time amlodipine Allergy Intermediate Other Verified 03/13/23 15:40 adhesive Allergy Unknown Verified 03/13/23 15:40 atorvastatin calcium Allergy Unknown Verified 03/13/23 15:40 [From Lipitor] Iodinated Contrast Media Allergy Angioedema Verified 03/13/23 15:40 [DYEE] iodine Allergy Unknown Verified 03/13/23 15:40 nitrofurantoin Allergy Unknown Verified 03/13/23 15:40 piroxicam Allergy Unknown Verified 03/13/23 15:40 Sulfa (Sulfonamide Allergy Unknown Verified 03/13/23 15:40 Antibiotics) Opioids - Morphine Analogues AdvReac Vomiting Verified 03/13/23 15:40 [narcotics] Family History Mother Myocardial infarction Leukemia Father Brain cancer Surgical History H/O hernia repair H/O vaginal hysterectomy H/O ventral hernia repair History of abdominal surgery History of back surgery History of bilateral carpal tunnel release History of bladder surgery History of total knee replacement Hx of cholecystectomy Hx of tonsillectomy Social History Smoking Status: Never smoker alcohol intake: never ROS <MARY ANN Carrera - Last Filed: 03/13/23 17:39> ROS ED ROS Narrative Constitutional: Negative for fever, chills, weight loss, weakness Eyes: Negative for vision loss, vision change, double vision ENT: Negative for any sore throat, ear pain, congestion Cardiovascular: Negative for any chest pain, tightness, palpitations Respiratory: Negative for any cough, sputum production, hemoptysis, dyspnea, dyspnea on exertion, orthopnea Gastrointestinal: Negative for any abdominal pain, nausea, vomiting, diarrhea, constipation, blood in stool, blood in vomit : Negative for any urinary frequency, dysuria, retention, blood in urine Muscle skeletal: Negative for any muscle joint pain, stiffness, myalgias, arthralgias, neck pain, back pain. Positive for right ankle pain, left chest wall pain, left knee pain Neurological: Negative for any headache, syncope, numbness or tingling, dizziness Skin: Negative for any rashes, lumps, itching, abrasions, lacerations Psychiatric: Negative for any depression, anxiety, stress, suicidal ideation, homicidal ideation Hematologic: Negative for any easy bruising, excessive bruising, easy bleeding Allergies: Negative for any eczema, hives, rash EXAM <MARY ANN Carrera - Last Filed: 03/13/23 17:39> Physical Exam Narrative Exam Narrative: Vital signs reviewed. HEET: Head normocephalic atraumatic, TMs clear bilaterally. Posterior pharynx is clear, moist mucous membranes. Nares clear bilaterally. Pupils are equal round reactive to light. Neck: Supple with no lymphadenopathy or tenderness. No signs of meningismus, negative jolt sign. Cardiac: Regular rate and rhythm no murmurs gallops or rubs, equal peripheral pulses bilaterally. Respiratory: Lungs clear to auscultation bilaterally. Patient does have some left-sided chest tenderness from the trauma, there is no crepitus noted. Ribs appear intact, equal breath sounds. Abdomen: Soft, nontender, nondistended. No abdominal bruit or pulsatile masses. No hepatosplenomegaly Extremities: Patient has ecchymosis, edema to the lateral malleolus, she does have pain just inferior of the lateral malleolus. No pain along the fifth metatarsal. Patient does have ecchymosis to the foot, this could likely be secondary to gravity. Patient does have pain to the left knee worse with movement and palpation. Neuro: Cranial nerves II through XII intact, no focal neurological deficits. Skin: Clean dry and intact with no rash, purpura, petechiae, vesicles or pustules. Backs/flank: No CVA tenderness, no midline spinal tenderness, no deformity. Psych: Normal mood and affect. No SI, HI or acute psychosis. Const Vital Signs: 03/13/23 15:40 03/13/23 16:29 03/13/23 16:31 Temperature 98 F Temperature Source Temporal Pulse Rate 63 60 Respiratory Rate 18 18 Respiratory Pattern Normal Blood Pressure 198/71 H 179/61 H Blood Pressure Mean 113 100 Pulse Ox 99 99 Oxygen Delivery Method Room Air Room Air Positive well nourished and well developed General Appearance ED: well developed <Dr. Ronen Holland DO - Last Filed: 03/13/23 17:28> Physical Exam Const Vital Signs: 03/13/23 15:40 03/13/23 16:29 03/13/23 16:31 Temperature 98 F Temperature Source Temporal Pulse Rate 63 60 Respiratory Rate 18 18 Respiratory Pattern Normal Blood Pressure 198/71 H 179/61 H Blood Pressure Mean 113 100 Pulse Ox 99 99 Oxygen Delivery Method Room Air Room Air MDM <Marco Kinney RESIDENT IN DIAGNOSTIC RADIOLOGYHenryC - Last Filed: 03/13/23 17:39> MDM Radiography Diagnostic Testing: Clinical Impression(s) from Imaging Studies Ankle X-Ray 03/13/23 16:18 IMPRESSION: There is nondisplaced fracture of the distal fibula proximal to the lateral malleolus. Electronically Signed: Amish Rizvi MD at 17:13 EDT , Ribs w/Chest X-Ray 03/13/23 16:18 IMPRESSION: RIBS: Normal x-ray examination of the ribs. CHEST: No definite acute or significant abnormality seen. Electronically Signed: Amish Rizvi MD at 17:25 EDT , Knee X-Ray 03/13/23 16:50 IMPRESSION: No acute fracture or dislocation. Degenerative changes. Electronically Signed: Amish Rizvi MD at 17:15 EDT Reading Location ID and State: [id number] / [place] , Service support , Treatment and Re-Evaluation :: Patient appears well, patient appears nontoxic, vital signs are stable. Patient presents to the emergency department after mechanical fall 7 days ago, she received x-rays 2 days ago, and showed that she had a fracture of her right ankle. Secondary to not having access to these images, as well as the patient being ambulatory for multiple days, the patient will have repeat x-rays of the right ankle, she will have x-rays of the left knee stating that this hurts as well, as well as left rib series. She will be given oral Tylenol. Patient's x-rays of the left knee shows no acute fracture. Patient's x-ray of the left rib series shows normal examination. No fracture or pneumothorax. Patient's x-ray of the left ankle shows a nondisplaced fracture distal fibula proximal to lateral malleolus. This does not appear to be out of place, patient be placed in a walking boot. I did offer the patient crutches however she refused she would like to use her walker at home. I did offer the patient some analgesia pain medicine such as [facility] however she would like to just take Tylenol at home. I will give the patient follow-up with podiatry, she will follow-up outpatient. She is instructed to ice and elevate. She is instructed to perform deep breathing exercises multiple times a day. She was given return precaution. Patient stable for discharge <Dr. Ronen Holland, DO - Last Filed: 03/13/23 17:28> [facility] Narrative Medical decision making narrative: I have personally performed a face to face assessment of the patient and have reviewed the GEMMA Note. I performed a substantive portion of the visit including all aspects of the following. My delvalle findings include: History: Patient presents with right ankle pain, left knee pain, left arm pain, and left rib pain that began after a fall last week. Patient had x-rays done 2 days ago. Patient states that her primary care physician called her today and told her she had a fracture of her ankle and she needed to come to the emergency department for further management. Patient denies any new trauma or injury. Patient states her pain is worse with weightbearing. Patient denies any paresthesias or weakness. Patient denies any head injury or loss of consciousness. Exam: Vital signs are stable. Patient is afebrile. Patient is in no acute distress. There is edema and ecchymosis over the distal humerus on the left. There is also mild tenderness over the anterior chest wall on the left. There is tenderness, edema, and ecchymosis over the right ankle and right foot. There is some mild tenderness over the left knee as well. There is no obvious deformity noted. Range of motion was limited in all motions of the right ankle and left knee secondary to pain. Heart was regular rate and rhythm. Lungs are clear and equal bilaterally. Abdomen is soft and nontender. Cranial nerves II through XII are intact. There are no focal motor or sensory deficits. Medical Decision Making: Differential diagnosis includes right ankle fracture, left knee contusion, left knee fracture, left arm contusion, left arm fracture, chest wall contusion, and rib fracture. X-rays of the left ribs will be obtained to assess for fracture and pneumothorax. X-rays of the left knee will be obtained to assess for fracture. X-rays of the right ankle will be obtained to assess for fracture and dislocation. X-rays of the right ankle were obtained. There are 3 views. On my independent interpretation, there is a nondisplaced fracture of the right distal fibula. There is mild soft tissue swelling over the lateral malleolus. Radiologist also interpreted the x-rays and agrees. X-rays of the left knee were obtained. There are 4 views. On my independent interpretation, there is no acute fracture. There are degenerative changes noted. Radiologist also interpreted the x-rays and agrees. X-rays of the left ribs were obtained. There are 5 views. On my independent interpretation, there is no acute fracture. There is no pneumothorax. Radiologist also interpreted the x-rays and agrees. Patient was advised of her findings. Patient was given a walking boot. Patient was given crutches. Patient was instructed to ice and elevate the right ankle. Patient was instructed to follow-up with her primary care physician in 5 to 7 days. Patient was also given referral for orthopedics. Patient understood and was agreeable with the plan. All questions were answered. Radiography Diagnostic Testing: Clinical Impression(s) from Imaging Studies Ankle X-Ray 03/13/23 16:18 IMPRESSION: There is nondisplaced fracture of the distal fibula proximal to the lateral malleolus. Electronically Signed: Amish Rizvi MD at 17:13 EDT , Ribs w/Chest X-Ray 03/13/23 16:18 IMPRESSION: RIBS: Normal x-ray examination of the ribs. CHEST: No definite acute or significant abnormality seen. Electronically Signed: Amish Rizvi MD at 17:25 EDT , Knee X-Ray 03/13/23 16:50 IMPRESSION: No acute fracture or dislocation. Degenerative changes. Electronically Signed: Amish Rizvi MD at 17:15 EDT , Discharge Plan Triage Chief Complaint: Lower Extremity Injury Other Complaint: Chest Other ED Midlevel Provider: Marco Kinney ED Provider: Ronen Holland Dx/Rx/DC Orders Clinical Impression: Fall, Fracture of distal end of fibula, Contusion of rib, Contusion of knee, left Instructions: Bone Contusion, ED Bruise, Rib, ED Ankle Fracture Prescriptions: No Action isosorbide mononitrate 60 mg tablet extended release 24 hr 60 mg PO DAILY spironolactone 25 mg tablet 12.5 mg PO DAILY atorvastatin 80 mg tablet 80 mg PO QPM lisinopril 20 mg tablet 20 mg PO DAILY tolterodine [Detrol LA] 4 mg capsule,extended release 24hr 4 mg PO DAILY meclizine 25 MG tablet 25 mg PO Q6H PRN (Reason: dizziness) Label Comments: dizziness nitroglycerin 0.4 MG tablet 0.4 mg sublingual Q5M PRN (Reason: Chest Pain) Label Comments: chest pain gabapentin 300 MG capsule 300 mg PO BID Label Comments: pain aspirin 81 MG tablet,chewable 81 mg PO DAILY@0800 Label Comments: heart health clobetasol-emollient 30 GM cream 30 g TP MOWEFR Label Comments: vaginal thinning calcium carbonate-vitamin D3 [Caltrate with Vitamin D3] 1 TAB tablet 1 tab PO DAILY@0800 Label Comments: supplement metoprolol succinate [Toprol XL] 50 MG tablet extended release 24 hr 50 mg PO DAILY Pravastatin tablet 20 mg PO DAILY levothyroxine 100 MCG tablet 200 mcg PO MOTUTHSA levothyroxine 150 MCG tablet 300 mcg PO SUWEFR omeprazole 20 MG capsule 20 mg PO DAILY hydrochlorothiazide 25 MG tablet 25 mg PO DAILY metoclopramide HCl 10 MG tablet 10 mg PO 4X/DAY Vitamin B12 25 mcg PO DAILY amlodipine 5 MG tablet 5 mg PO DAILY Qty: 30 0RF estradiol [Estrace] 42.5 GM cream 0.5 g vaginal MOFR 0RF potassium 99 MG tablet 99 mg PO DAILY docusate sodium [DOK] 100 MG capsule 200 mg PO QHS biotin-keratin [Biotin Plus Keratin] 1 EACH tablet 1 ea PO DAILY hydrocodone-acetaminophen 1 TABLET tablet 1 - 2 tab PO Q6H PRN PRN (Reason: Moderate-severe pain) 3 Days Qty: 10 0RF amoxicillin-pot clavulanate 875 MG tablet 875 mg PO Q12H 8 Days Qty: 16 0RF ondansetron 4 MG tablet 4 mg PO Q8H PRN PRN (Reason: Nausea/Emesis) Qty: 20 0RF L.acidoph, paracasei,B. lactis 1 EACH capsule 1 ea PO BID Qty: 60 0RF simethicone 80 MG tablet 80 mg PO 4X/DAY Qty: 60 0RF cefpodoxime 200 mg tablet 200 mg PO Q12H 10 Days Qty: 20 0RF Rx Instructions: must administer with a meal/food Primary Care Provider: Jamal Darby Referrals: Jamal Darby MD [Primary Care Provider] - Kemar Betancourt DPM [Med Staff - Active Staff] - Activity Restrictions/Additional Instructions: Take Tylenol, wear the walking boot while you are up and around, you need to follow-up with podiatry for further work-up. Use your walker. Disposition Disposition: Home, Self Care
[2023-03-13] MEDS: Acetaminophen 500 MG Tablet 1000 MG PO (16:26)
[2023-03-13 16:29] VITALS: BP 179/61; PULSE 60; RESP 18; O2SAT 99
[2023-03-13 16:33] VITALS: BMI 37.5
--- NOTE | 2023-03-13 16:50 | RAD_ITS ---
STUDY: X-RAY - LEFT KNEE REASON FOR EXAM: Female, 82 years old. fall TECHNIQUE: 4 view(s) of the knee. COMPARISON: None. FINDINGS: Normal visualized distal femur. Normal visualized proximal tibia and fibula. Normal proximal tibiofibular articulation. There is no demonstrated fracture. There is severe degenerative arthrosis of the medial femorotibial compartment with severe joint space narrowing. There is moderate degenerative arthrosis of the lateral femorotibial compartment with moderate joint space narrowing. There is severe degenerative arthrosis of the patellofemoral articulation. There is no demonstrated joint effusion. The soft tissue structures are unremarkable. RAD/Knee 4 or More Views IMPRESSION: No acute fracture or dislocation. Degenerative changes. Electronically Signed: Amish Rizvi MD at 17:15 EDT ,
== END 2023-03-13 18:25 | disposition home or self-care (01) ==
PROVIDERS: Emergency Provider Emergency Medicine; PCP Family Medicine; Visit Provider Emergency Medicine
DX: S82.409A Unspecified fracture of shaft of unspecified fibula, initial encounter for closed fracture (principal); S80.02XA Contusion of left knee, initial encounter; S90.01XA Contusion of right ankle, initial encounter; S90.02XA Contusion of left ankle, initial encounter; I12.9 Hypertensive chronic kidney disease with stage 1 through stage 4 chronic kidney disease, or unspecified chronic kidney disease; S20.219A Contusion of unspecified front wall of thorax, initial encounter; N18.9 Chronic kidney disease, unspecified; E05.90 Thyrotoxicosis, unspecified without thyrotoxic crisis or storm; G47.33 Obstructive sleep apnea (adult) (pediatric); Z79.82 Long term (current) use of aspirin; Z79.899 Other long term (current) drug therapy; W01.0XXA Fall on same level from slipping, tripping and stumbling without subsequent striking against object, initial encounter
CPT/HCPCS: 71101; 73564; 73610; 99283

== ENCOUNTER 2023-07-14 14:07 | Emergency (ER) | payer MEDICARE, SELFPAY ==
[2023-07-14 14:07] VITALS: BP 164/87; PULSE 63; RESP 18; TEMP 36.1; O2SAT 95; BMI 33.3
[2023-07-14 15:06] LABS: Absolute Neutrophil Count 3.6 X10^3/uL (2.0-7.7); Basophil# 0.03 X10^3/uL; Basophil% 0.5 % (0-1); Eosinophil# 0.25 X10^3/uL; Eosinophils% 4.4 % (0-5); Hematocrit 34.4 % (37-47); Hemoglobin 12.9 g/dL (12.0-15.0); Lymphocyte % 22.8 % (19-41); Mean Corp Hgb Conc 37.5 g/dL (32-36); Mean Corpuscular Hgb 36.8 pg (27.0-32.0); Mean Platelet Vol. 10.3 fl (6.2-12.0); Monocyte# 0.48 X10^3/uL; Monocyte% 8.4 % (0-10); NRBC Flagged by Analyzer 0 % (0-5); Neutrophil % 63.4 % (47-70); Platelet Count 208 K/mm3 (150-450); RBC Distribution Width CV 13.6 % (11.6-14.6); RBC Distribution Width SD 45.5 fl (35.1-43.9); Red Blood Count 3.51 M/mm3 (4.2-5.4); White Blood Count 5.7 K/mm3 (4.4-11.0)
--- NOTE | 2023-07-14 15:13 | CT_ITS ---
STUDY: CT ABDOMEN AND PELVIS WITHOUT CONTRAST REASON FOR EXAM: Female, 82 years old. 2 day history of left lower quadrant pain. RADIATION DOSAGE (If Supplied By Facility): CTDIvol = ( 15.26 ) mGy, DLP = ( 724.15 ) mGycm TECHNIQUE: Transaxial images were obtained from the dome of the diaphragm to the symphysis pubis without oral contrast, and without intravenous contrast. Sagittal and coronal images were reconstructed. Individualized dose optimization techniques were used for this CT. COMPARISON: Comparison is made with prior examination dated November 23, 2021. FINDINGS: The visualized lung bases are unremarkable. Coronary artery calcification. Normal liver. There are surgical clips in the gallbladder fossa consistent with a prior cholecystectomy. Normal spleen. There is diffuse atrophy of the pancreas. Normal bilateral adrenal glands. Normal right kidney. Normal left kidney. Normal visualized stomach. Normal small intestine. Normal colon. There is non-visualization of the appendix. There is diffuse atherosclerotic calcification of the abdominal aorta, without a demonstrated aneurysm. Normal inferior vena cava. Normal retroperitoneum. Distended urinary bladder. There is absence of the uterus consistent with a prior hysterectomy. Stable small right paracentral anterior ventral hernia containing fat. There are diffuse degenerative changes of the visualized lumbar spine. CT/Abdomen/Pelvis without Cont IMPRESSION: Status post cholecystectomy and hysterectomy. Distended urinary bladder. Electronically Signed: Rafael Herrera MD at 15:51 EDT ,
--- NOTE | 2023-07-14 15:14 | ED.VIS.GI ---
HPI <Dr. Pierce Azevedo DO - Last Filed: 07/14/23 15:20> HPI - GI History of Present Illness Chief Complaint: Abd Pain <LEANDRA Romero - Last Filed: 07/14/23 18:53> HPI - GI Narrative Narrative: Patient presents today due to left lower abdominal pain that she has had since Friday morning. She reports that the pain is worsening. She has not had a bowel movement since Friday. She reports that yesterday she noticed that while urinating she had some discomfort and also noticed a pink tinge to the urine. She reports that she is no longer having any urinary symptoms and no longer has any discoloration. Prior abdominal surgery includes hysterectomy. She denies any fever, chills, nausea, vomiting, and diarrhea. PFSH <Dr. Pierce Azevedo DO - Last Filed: 07/14/23 15:20> [facility] Medical History CKD (chronic kidney disease) Esophageal dysphagia Hyperthyroidism Orthostatic hypotension STEPHANIE (obstructive sleep apnea) Home Medications aspirin 81 mg chewable tablet 81 mg PO DAILY@0800 08/15/14 [History Last Taken 08/14/14] calcium carbonate 600 mg-vitamin D3 20 mcg (800 unit) tablet (Caltrate with Vitamin D3) 1 tab PO DAILY@0800 08/15/14 [History Last Taken 08/14/14] clobetasol-emollient 0.05 % topical cream 30 g TP MOWEFR 08/15/14 [History Last Taken 08/12/14] gabapentin 300 mg capsule 300 mg PO BID 08/15/14 [History Last Taken 08/14/14] meclizine 25 mg tablet 25 mg PO Q6H PRN dizziness 08/15/14 [History Last Taken 08/15/14] nitroglycerin 0.4 mg sublingual tablet 0.4 mg sublingual Q5M PRN Chest Pain 08/15/14 [History Last Taken Unknown] Pravastatin 20 mg PO DAILY 10/10/16 [History Last Taken Unknown] metoprolol succinate 50 mg tablet,extended release 24 hr (Toprol XL) 50 mg PO DAILY 10/10/16 [History Last Taken Unknown] Vitamin B12 25 mcg PO DAILY 04/18/17 [History Last Taken Unknown] hydrochlorothiazide 25 mg tablet 25 mg PO DAILY 04/18/17 [History Last Taken Unknown] levothyroxine 100 mcg tablet 200 mcg PO MOTUTHSA 04/18/17 [History Last Taken Unknown] levothyroxine 150 mcg tablet 300 mcg PO SUWEFR 04/18/17 [History Last Taken Unknown] metoclopramide HCl 10 mg tablet 10 mg PO 4X/DAY 04/18/17 [History Last Taken Unknown] omeprazole 20 mg capsule,delayed release 20 mg PO DAILY 04/18/17 [History Last Taken Unknown] amlodipine 5 mg tablet 5 mg PO DAILY #30 tabs 04/30/17 [Rx Last Taken Unknown] estradiol 0.01% (0.1 mg/gram) vaginal cream (Estrace) 0.5 g vaginal MOFR 04/30/17 [Rx Last Taken Unknown] biotin 10,000 mcg-keratin 100 mg tablet (Biotin Plus Keratin) 1 ea PO DAILY 04/10/18 [History Last Taken Unknown] docusate sodium 100 mg capsule (DOK) 200 mg PO QHS 04/10/18 [History Last Taken Unknown] potassium 99 mg tablet 99 mg PO DAILY 04/10/18 [History Last Taken Unknown] L.acidoph, paracasei,B. lactis 10 billion cell capsule 1 ea PO BID #60 caps 04/12/18 [Rx Last Taken Unknown] amoxicillin 875 mg-potassium clavulanate 125 mg tablet 875 mg (0.875 x 875-125 mg) PO Q12H Colitis 8 days #16 tabs 04/12/18 [Rx Last Taken Unknown] hydrocodone-acetaminophen 5-325mg 5mg-325mg 1 - 2 tab PO Q6H PRN PRN Moderate-severe pain 3 days #10 tabs 04/12/18 [Rx Last Taken Unknown] ondansetron 4 mg disintegrating tablet 4 mg PO Q8H PRN PRN Nausea/Emesis #20 tabs 04/12/18 [Rx Last Taken Unknown] simethicone 80 mg chewable tablet 80 mg PO 4X/DAY #60 tabs 04/12/18 [Rx Last Taken Unknown] cefpodoxime 200 mg tablet 200 mg PO Q12H 10 days #20 tabs 11/23/21 [Rx Last Taken Unknown] atorvastatin 80 mg tablet 80 mg PO QPM 02/04/23 [History Last Taken Unknown] isosorbide mononitrate 60 mg tablet,extended release 24 hr 60 mg PO DAILY 02/04/23 [History Last Taken Unknown] lisinopril 20 mg tablet 20 mg PO DAILY 02/04/23 [History Last Taken Unknown] spironolactone 25 mg tablet 12.5 mg PO DAILY 02/04/23 [History Last Taken Unknown] tolterodine 4 mg capsule,extended release 24 hr (Detrol LA) 4 mg PO DAILY 02/04/23 [History Last Taken Unknown] Allergy/AdvReac Type Severity Reaction Status Date / Time amlodipine Allergy Intermediate Other Verified 07/14/23 14:09 adhesive Allergy Unknown Verified 07/14/23 14:09 atorvastatin calcium Allergy Unknown Verified 07/14/23 14:09 [From Lipitor] Iodinated Contrast Media Allergy Angioedema Verified 07/14/23 14:09 [DYEE] iodine Allergy Unknown Verified 07/14/23 14:09 nitrofurantoin Allergy Unknown Verified 07/14/23 14:09 piroxicam Allergy Unknown Verified 07/14/23 14:09 Sulfa (Sulfonamide Allergy Unknown Verified 07/14/23 14:09 Antibiotics) Opioids - Morphine Analogues AdvReac Vomiting Verified 07/14/23 14:09 [narcotics] Family History Mother Myocardial infarction Leukemia Father Brain cancer Surgical History H/O hernia repair H/O vaginal hysterectomy H/O ventral hernia repair History of abdominal surgery History of back surgery History of bilateral carpal tunnel release History of bladder surgery History of total knee replacement Hx of cholecystectomy Hx of tonsillectomy Social History Smoking Status: Never smoker alcohol intake: never ROS <LEANDRA Romero - Last Filed: 07/14/23 18:53> ROS ED Constitutional Constitutional ED: Denies chills or fever(s) Cardiovascular Cardiovascular: Denies chest pain Respiratory/Chest Respiratory/Chest: Denies cough or dyspnea Gastrointestinal Gastrointestinal: Reports abdominal pain and constipation; Denies diarrhea, nausea or vomiting Genitourinary Genitourinary ED: Denies dysuria, hematuria or urinary urgency Musculoskeletal Musculoskeletal: Denies arthralgias or myalgias Integumentary Denies rash Neurologic Neurologic: Denies weakness EXAM <Dr. Pierce Azevedo DO - Last Filed: 07/14/23 15:20> Physical Exam Const Vital Signs: 07/14/23 14:07 07/14/23 16:51 Temperature 97 F L 98.6 F Temperature Source Temporal Pulse Rate 63 64 Respiratory Rate 18 14 Blood Pressure 164/87 H 138/78 H Blood Pressure Mean 112 Pulse Ox 95 99 Oxygen Delivery Method Room Air <LEANDRA Romero - Last Filed: 07/14/23 18:53> Physical Exam Const Vital Signs: 07/14/23 14:07 07/14/23 16:51 Temperature 97 F L 98.6 F Temperature Source Temporal Pulse Rate 63 64 Respiratory Rate 18 14 Blood Pressure 164/87 H 138/78 H Blood Pressure Mean 112 Pulse Ox 95 99 Oxygen Delivery Method Room Air Positive well nourished, well developed and no apparent distress General Appearance ED: well developed HEENT Reports normocephalic and head/scalp atraumatic Mouth ED: Yes moist mucous membranes normal Eyes PERRL and EOMs intact bilaterally Neck full ROM and supple Chest Wall inspection of chest normal Resp normal respiratory effort and clear to auscultation bilaterally Cardio regular rate and regular rhythm GI soft to palpation, non-distended and no masses GI Narrative: Left lower quadrant tenderness to palpation without any rigidity, guarding, or peritoneal signs. Back/Spine normal ROM and normal to inspection Extremity normal to inspection and full ROM Neuro oriented x3, CN's II-XII intact bilaterally, moves all extremities, no focal motor deficits and no sensory deficits noted Sensorium / Orientation: awake and alert Psych mental status grossly normal and thought process normal Skin no rashes or lesions noted and no wounds MDM <Dr. Pierce Azevedo DO - Last Filed: 07/14/23 15:20> [facility] Lab Data Labs: Laboratory Results - last 24 hr 07/14/23 07/14/23 14:55 15:45 WBC 5.7 RBC 3.51 L Hgb 12.9 Hct 34.4 L MCV 98.0 MCH 36.8 H MCHC 37.5 H RDW Std Deviation 45.5 H RDW Coeff of [place]el[place] 13.6 Plt Count 208 MPV 10.3 Immature Gran % (Auto) 0.500 Neut % (Auto) 63.4 Lymph % (Auto) 22.8 [place] % (Auto) 8.4 Eos % (Auto) 4.4 Baso % (Auto) 0.5 Absolute Neuts (auto) 3.6 Absolute Lymphs (auto) 1.30 Nucleated RBC % 0 Sodium 139 Potassium 4.4 Chloride 106 Carbon Dioxide 30.0 Anion Gap 3 L BUN 20 H Creatinine 0.99 Estim Creat Clear Calc 36.53 Est GFR (MDRD) Af Amer 69 Est GFR (MDRD) Non-Af 57 L BUN/Creatinine Ratio 20.2 H Glucose 98 Calcium 9.1 Total Bilirubin 0.30 AST 37 ALT 33 Alkaline Phosphatase 121 H Total Protein 7.8 Albumin 3.5 Globulin 4.3 H Albumin/Globulin Ratio 0.8 L Lipase 23 Urine Color Yellow Urine Clarity Clear Urine pH 6.5 Ur Specific [place] 1.010 Urine Protein Negative Urine Glucose (UA) Normal Urine Ketones Negative Urine Occult Blood Negative Urine Nitrite Negative Urine Bilirubin Negative Urine Urobilinogen Normal Ur Leukocyte Esterase 100 H Urine RBC 0 SEEN Urine WBC 5-10 SEEN Ur Squamous Epith Cells 0 SEEN Urine Bacteria 0 SEEN Urine Mucus 0 SEEN Radiography Diagnostic Testing: Clinical Impression(s) from Imaging Studies Abdomen/Pelvis CT 07/14/23 15:13 IMPRESSION: Status post cholecystectomy and hysterectomy. Distended urinary bladder. Electronically Signed: Rafael Herrera MD at 15:51 EDT Reading Location ID and State: [address] [place] [address] , Service support , Treatment and Re-Evaluation :: ED attending note: I evaluated the patient in conjunction with the [facility]EMMA. I agree with his/her statements and above findings. I have personally performed a face to face assessment of the patient and have reviewed the [facility]MA Note. I performed a substantive portion of the visit including all aspects of the following. I personally saw the patient performed chart review, physical exam, reviewed labs, imaging (if obtained), and formulated a treatment and management plan. Brief history: 82-year-old female here with lower abdominal pain since Friday. Exam: [] Nursing triage notes reviewed, Vital signs reviewed Constitutional: please see mdm HENT: MMM Eyes: Pupils equal round and reactive to light, Extraocular muscles intact Neck: No stridor, no JVD, full neck ROM Lungs: Clear to auscultation, No wheezing or rales. No increased work of breathing, no conversational dyspnea, no accessory muscle use, no nasal flaring. No respiratory distress noted Heart: Regular rate and rhythm, No murmurs, No rubs and No gallops, 2+ distal pulses (radial, femoral, posterior tibial) in all extremities Abdomen: Soft, no rigidity, rebound or guarding, no obvious peritoneal signs, no palpable pulsatile abdominal masses, no auscultated abdominal bruit : No CVAT Extremities: No edema Neuro: No focal neurological deficits, cranial nerves II through XII intact, 5/5 strength in all extremities. Intact sensation to light touch in all extremities, 2+ reflexes bilateral patella dens. Normal gait. No ataxia. Skin: No rash or lesions noted MDM/plan: Chief Complaint: Abdominal pain External records reviewed: Imaging reviewed. CT scan from November 2021 shows no acute abnormalities Factors affecting care: Hypertension, hyperlipidemia, B12 deficiency, hypothyroidism Social determinants of health: Elderly History obtained from others: [] [facility] narrative: Patient was hemodynamically stable, afebrile, nontoxic-appearing I considered the following differential diagnosis:, Nephrolithiasis, pyelonephritis, small bowel suction, perforation, pancreatitis, hepatobiliary pathology, UTI, ovarian pathology We will obtain labs and imaging to further elucidate etiology patient complaint specifically CT scan abdomen pelvis rule out any surgical pathology. Obtain labs rule out signs of systemic inflammation, pancreatitis, metabolic pathology or obstruction, UTI or pyelonephritis. We will give IV fluids, pain medication and appropriate symptomatic treatment per patient symptoms. Will determine disposition based on results of studies and response to treatment. Shared decision making: I will have a discussion with the patient and or visitors regarding risk/benefits of further testing or admission. They will be made aware of of the risk/benefits inherent in this decision they will be given the opportunity to voice understanding. <LEANDRA Romero - Last Filed: 07/14/23 18:53> [facility] Narrative Medical decision making narrative: Patient presenting due to left lower quadrant abdominal pain that started on Friday. She is well-appearing and in no acute distress aside from being hypertensive vitals are unremarkable. She does have some tenderness to her left lower quadrant on exam without any rigidity or guarding, pain is not out of proportion. However, CT of the abdomen and pelvis will be obtained to rule out diverticulitis, bowel obstruction, kidney stone, and other abdominal etiology. Labs will be obtained to rule out leukocytosis, anemia, electrolyte abnormality, SHAHAB, UTI, and pancreatitis. Her labs overall all are unremarkable. Given she had urinary symptoms a culture will be sent but I do not feel that she needs to be treated for UTI at this time. She did not want anything for pain or nausea. She reports that her last bowel movement was Friday but that is normal for her and she does not feel constipated. CT was unremarkable. At this time the cause of her abdominal pain is unclear. Patient will be discharged home in stable condition, she is to follow-up with her PCP and is comfortable with plan. Lab Data Attestation: I reviewed the patient's lab results. Lab results narrative: Hematocrit 34.4, BUN 20, GFR 57, alkaline phosphatase 121 Labs: Laboratory Results - last 24 hr 07/14/23 07/14/23 14:55 15:45 WBC 5.7 RBC 3.51 L Hgb 12.9 Hct 34.4 L MCV 98.0 MCH 36.8 H MCHC 37.5 H RDW Std Deviation 45.5 H RDW Coeff of Yelitza 13.6 Plt Count 208 MPV 10.3 Immature Gran % (Auto) 0.500 Neut % (Auto) 63.4 Lymph % (Auto) 22.8 [place] % (Auto) 8.4 Eos % (Auto) 4.4 Baso % (Auto) 0.5 Absolute Neuts (auto) 3.6 Absolute Lymphs (auto) 1.30 Nucleated RBC % 0 Sodium 139 Potassium 4.4 Chloride 106 Carbon Dioxide 30.0 Anion Gap 3 L BUN 20 H Creatinine 0.99 Estim Creat Clear Calc 36.53 Est GFR (MDRD) Af Amer 69 Est GFR (MDRD) Non-Af 57 L BUN/Creatinine Ratio 20.2 H Glucose 98 Calcium 9.1 Total Bilirubin 0.30 AST 37 ALT 33 Alkaline Phosphatase 121 H Total Protein 7.8 Albumin 3.5 Globulin 4.3 H Albumin/Globulin Ratio 0.8 L Lipase 23 Urine Color Yellow Urine Clarity Clear Urine pH 6.5 Ur Specific [place] 1.010 Urine Protein Negative Urine Glucose (UA) Normal Urine Ketones Negative Urine Occult Blood Negative Urine Nitrite Negative Urine Bilirubin Negative Urine Urobilinogen Normal Ur Leukocyte Esterase 100 H Urine RBC 0 SEEN Urine WBC 5-10 SEEN Ur Squamous Epith Cells 0 SEEN Urine Bacteria 0 SEEN Urine Mucus 0 SEEN Radiography Diagnostic Testing: Clinical Impression(s) from Imaging Studies Abdomen/Pelvis CT 07/14/23 15:13 IMPRESSION: Status post cholecystectomy and hysterectomy. Distended urinary bladder. Electronically Signed: Rafael Herrera MD at 15:51 EDT , Discharge Plan Triage Chief Complaint: Abd Pain ED Midlevel Provider: Janiya Lopez ED Provider: Pierce Azevedo Dx/Rx/DC Orders Clinical Impression: Abdominal pain, Constipation Instructions: ED Abdominal Pain Unkn Cause Fem, ED Constipation (Adult) Prescriptions: No Action isosorbide mononitrate 60 mg tablet extended release 24 hr 60 mg PO DAILY spironolactone 25 mg tablet 12.5 mg PO DAILY atorvastatin 80 mg tablet 80 mg PO QPM lisinopril 20 mg tablet 20 mg PO DAILY tolterodine [Detrol LA] 4 mg capsule,extended release 24hr 4 mg PO DAILY meclizine 25 MG tablet 25 mg PO Q6H PRN (Reason: dizziness) Patient Comments: dizziness nitroglycerin 0.4 MG tablet 0.4 mg sublingual Q5M PRN (Reason: Chest Pain) Patient Comments: chest pain gabapentin 300 MG capsule 300 mg PO BID Patient Comments: pain aspirin 81 MG tablet,chewable 81 mg PO DAILY@0800 Patient Comments: heart health clobetasol-emollient 30 GM cream 30 g TP MOWEFR Patient Comments: vaginal thinning calcium carbonate-vitamin D3 [Caltrate with Vitamin D3] 1 TAB tablet 1 tab PO DAILY@0800 Patient Comments: supplement metoprolol succinate [Toprol XL] 50 MG tablet extended release 24 hr 50 mg PO DAILY Pravastatin tablet 20 mg PO DAILY levothyroxine 100 MCG tablet 200 mcg PO MOTUTHSA levothyroxine 150 MCG tablet 300 mcg PO SUWEFR omeprazole 20 MG capsule 20 mg PO DAILY hydrochlorothiazide 25 MG tablet 25 mg PO DAILY metoclopramide HCl 10 MG tablet 10 mg PO 4X/DAY Vitamin B12 25 mcg PO DAILY amlodipine 5 MG tablet 5 mg PO DAILY Qty: 30 0RF estradiol [Estrace] 42.5 GM cream 0.5 g vaginal MOFR 0RF potassium 99 MG tablet 99 mg PO DAILY docusate sodium [DOK] 100 MG capsule 200 mg PO QHS biotin-keratin [Biotin Plus Keratin] 1 EACH tablet 1 ea PO DAILY hydrocodone-acetaminophen 1 TABLET tablet 1 - 2 tab PO Q6H PRN PRN (Reason: Moderate-severe pain) 3 Days Qty: 10 0RF amoxicillin-pot clavulanate 875 MG tablet 875 mg PO Q12H 8 Days Qty: 16 0RF ondansetron 4 MG tablet 4 mg PO Q8H PRN PRN (Reason: Nausea/Emesis) Qty: 20 0RF L.acidoph, paracasei,B. lactis 1 EACH capsule 1 ea PO BID Qty: 60 0RF simethicone 80 MG tablet 80 mg PO 4X/DAY Qty: 60 0RF cefpodoxime 200 mg tablet 200 mg PO Q12H 10 Days Qty: 20 0RF Rx Instructions: must administer with a meal/food Primary Care Provider: Jamal Darby Referrals: Jamal Darby MD [Primary Care Provider] - 3-5 Days Activity Restrictions/Additional Instructions: Please follow-up with your PCP and return for worsening of your symptoms. If you are struggling to have a bowel movement you can try [id number] stool softeners or laxatives such as MiraLAX. Disposition Disposition: Home, Self Care Discharge Date/Time: 07/14/23 16:52
[2023-07-14 15:27] LABS: ALB/GLOB Ratio 0.8 RATIO (0.9-2.4); AST(SGOT) 37 U/L (15-37); Alanine Aminotransfer ALT/SGPT 33 U/L (13-56); Albumin, Serum 3.5 g/dL (3.2-5.0); Alkaline Phosphatase 121 U/L (45-117); Anion Gap 3 (5-15); BUN 20 mg/dL (7-18); BUN/Creat Ratio 20.2 RATIO (10-20); Calcium,Total 9.1 mg/dL (8.5-10.1); Chloride 106 mmol/L (98-107); Creatinine, Serum 0.99 mg/dL (0.55-1.02); EST Glomerular Filtration Rate 57 mL/min (>60); Est Glom Filt Rate - Afr Amer 69 mL/min (>60); Estimated Creatinine Clearance 36.53 ml/min; Globulin 4.3 g/dL (2.2-4.2); Glucose 98 mg/dL (74-106); Potassium 4.4 mmol/L (3.5-5.1); Protein, Total 7.8 g/dL (6.4-8.2); Sodium Level 139 mmol/L (136-145)
[2023-07-14 15:50] LABS: Lipase 23 U/L (13-75)
[2023-07-14 15:52] LABS: Bacteria 0 SEEN /hpf (None Seen); Mucous, Urine 0 SEEN /hpf (<or=2+); Red Blood Cells-Urine 0 SEEN /hpf (0-5); Squamous Epithelial Cells - UA 0 SEEN /hpf (5-10)
[2023-07-14 16:02] LABS: Color, Urine Yellow (Yellow); Glucose, Dipstick Normal (Normal); Ketone-Dipstick Negative (Negative); Leukocyte Esterase-Dipstick 100 /ul (Negative); Nitrite-Dipstick Negative (Negative); Occult Blood-Urine Negative /ul (Negative); Protein-Dipstick Negative (Negative); Urine Bilirubin Dipstick Negative (Negative); Urine Clarity Clear (Clear); Urine Urobilinogen Normal (Normal); Urine pH 6.5 (5.0 - 8.0)
[2023-07-14 16:20] LABS: White Blood Cells 5-10 SEEN /hpf (0-5)
[2023-07-14 16:51] VITALS: BP 138/78; PULSE 64; RESP 14; TEMP 37; O2SAT 99
== END 2023-07-14 16:52 | disposition home or self-care (01) ==
PROVIDERS: Physician Assistant; Emergency Provider Emergency Medicine; PCP Family Medicine; Visit Provider Emergency Medicine
DX: R10.32 Left lower quadrant pain (principal); I12.9 Hypertensive chronic kidney disease with stage 1 through stage 4 chronic kidney disease, or unspecified chronic kidney disease; E53.8 Deficiency of other specified B group vitamins; K59.00 Constipation, unspecified; E78.5 Hyperlipidemia, unspecified; N18.9 Chronic kidney disease, unspecified; E05.90 Thyrotoxicosis, unspecified without thyrotoxic crisis or storm; Z79.899 Other long term (current) drug therapy; Z79.82 Long term (current) use of aspirin; Z90.710 Acquired absence of both cervix and uterus; Z96.659 Presence of unspecified artificial knee joint; Z90.49 Acquired absence of other specified parts of digestive tract
CPT/HCPCS: 74176; 80053; 81001; 83690; 85025; 87086; 87088; 99283; A4216

== ENCOUNTER → 2024-01-02 | Outpatient (CLI) | payer MEDICARE, SELFPAY | END | disposition home or self-care (01) | LOC: LABSPEC 15:49 | PROVIDERS: PCP Family Medicine; Referring Provider Otolaryngology; Visit Provider Otolaryngology | DX: H92.10 Otorrhea, unspecified ear (principal) | CPT/HCPCS: 87070; 87075; 87077; 87186; 87205 ==

== ENCOUNTER 2024-07-19 11:42 | Emergency (ER) | payer MEDICARE, SELFPAY ==
[2024-07-19 11:43] VITALS: BP 178/86; PULSE 53; RESP 16; TEMP 36.4; O2SAT 97
--- NOTE | 2024-07-19 12:35 | RAD_ITS ---
STUDY: X-RAY - LEFT KNEE REASON FOR EXAM: Female, 83 years old. Pain. TECHNIQUE: 4 view(s) of the knee. COMPARISON: March 13, 2023 FINDINGS: Osteopenia. Moderate tricompartmental arthrosis with osteophytes, relatively unchanged. 6 mm in diameter ossicle projected in the intertubercular sulcus of the tibia compatible with an intra-articular osteochondral body. Small joint effusion. RAD/Knee 4 or More Views IMPRESSION: Stable osteopenia, tricompartmental arthrosis and small joint effusion. 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 Electronically Signed: Zay Joseph MD at 12:50 EDT ,
[2024-07-19 13:43] VITALS: BP 167/74; PULSE 78; RESP 16; O2SAT 98
--- NOTE | 2024-07-19 14:00 | EDS_ITS ---
HPI History of Present Illness Chief Complaint: Lower Extremity Injury Narrative Narrative: Patient is a 83-year-old female with past medical history of STEPHANIE, CKD, hypothyroidism who presented to the emergency department chief complaint of left knee pain. Patient states that about a year ago she had a fall and ever since then her knee has been not normal for herself. She states that over the weekend she developed left knee pain that progressively worsened prompting her to come here for the evaluation management. Patient states that she has been taking Motrin and her tramadol at home for pain control. Patient states that she has not been icing her knee. Patient states that she does not have any new falls or any other injuries. Otherwise she states that she has been feeling her normal self. [facility] Medical History STEPHANIE (obstructive sleep apnea) Orthostatic hypotension CKD (chronic kidney disease) Hyperthyroidism Esophageal dysphagia Home Medications ?Medication ?Instructions ?Recorded ?Last Taken ?Type aspirin 81 mg chewable tablet 81 mg PO DAILY@0800 08/15/14 08/14/14 History calcium 600 mg (as 1 tab PO DAILY@0800 08/15/14 08/14/14 History carbonate)-vitamin D3 20 mcg (800 unit) tablet (Caltrate with Vitamin D3) clobetasol-emollient 0.05 % 30 g TP MOWEFR 08/15/14 08/12/14 History topical cream gabapentin 300 mg capsule 300 mg PO BID 08/15/14 08/14/14 History meclizine 25 mg tablet 25 mg PO Q6H PRN dizziness 08/15/14 08/15/14 History nitroglycerin 0.4 mg sublingual 0.4 mg sublingual Q5M PRN Chest 08/15/14 Unknown History tablet Pain Pravastatin 20 mg PO DAILY 10/10/16 Unknown History metoprolol succinate 50 mg 50 mg PO DAILY 10/10/16 Unknown History tablet,extended release 24 hr (Toprol XL) Vitamin B12 25 mcg PO DAILY 04/18/17 Unknown History hydrochlorothiazide 25 mg tablet 25 mg PO DAILY 04/18/17 Unknown History levothyroxine 100 mcg tablet 200 mcg PO MOTUTHSA 04/18/17 Unknown History levothyroxine 150 mcg tablet 300 mcg PO SUWEFR 04/18/17 Unknown History metoclopramide HCl 10 mg tablet 10 mg PO 4X/DAY 04/18/17 Unknown History omeprazole 20 mg capsule,delayed 20 mg PO DAILY 04/18/17 Unknown History release amlodipine 5 mg tablet 5 mg PO DAILY #30 tabs 04/30/17 Unknown Rx estradiol 0.01% (0.1 mg/gram) 0.5 g vaginal MOFR 04/30/17 Unknown Rx vaginal cream (Estrace) biotin 10,000 mcg-keratin 100 mg 1 ea PO DAILY 04/10/18 Unknown History tablet (Biotin Plus Keratin) docusate sodium 100 mg capsule 200 mg PO QHS 04/10/18 Unknown History (DOK) potassium 99 mg tablet 99 mg PO DAILY 04/10/18 Unknown History L.acidoph, paracasei,B. lactis 10 1 ea PO BID #60 caps 04/12/18 Unknown Rx billion cell capsule amoxicillin 875 mg-potassium 875 mg PO Q12H Colitis 8 days #16 04/12/18 Unknown Rx clavulanate 125 mg tablet tabs hydrocodone-acetaminophen 5-325mg 1 - 2 tab PO Q6H PRN PRN 04/12/18 Unknown Rx 5mg-325mg Moderate-severe pain 3 days #10 tabs ondansetron 4 mg disintegrating 4 mg PO Q8H PRN PRN Nausea/Emesis 04/12/18 Unknown Rx tablet #20 tabs simethicone 80 mg chewable tablet 80 mg PO 4X/DAY #60 tabs 04/12/18 Unknown Rx cefpodoxime 200 mg tablet 200 mg PO Q12H 10 days #20 tabs 11/23/21 Unknown Rx atorvastatin 80 mg tablet 80 mg PO QPM 02/04/23 Unknown History isosorbide mononitrate 60 mg 60 mg PO DAILY 02/04/23 Unknown History tablet,extended release 24 hr lisinopril 20 mg tablet 20 mg PO DAILY 02/04/23 Unknown History spironolactone 25 mg tablet 12.5 mg PO DAILY 02/04/23 Unknown History tolterodine 4 mg capsule,extended 4 mg PO DAILY 02/04/23 Unknown History release 24 hr (Detrol LA) Allergy/AdvReac Type Severity Reaction Status Date / Time amlodipine Allergy Intermediate Other Verified 07/19/24 11:47 adhesive Allergy Unknown Verified 07/19/24 11:47 atorvastatin calcium (From Allergy Unknown Verified 07/19/24 11:47 Lipitor) Iodinated Contrast Media Allergy Angioedema Verified 07/19/24 11:47 (DYEE) iodine Allergy Unknown Verified 07/19/24 11:47 nitrofurantoin Allergy Unknown Verified 07/19/24 11:47 piroxicam Allergy Unknown Verified 07/19/24 11:47 Sulfa (Sulfonamide Allergy Unknown Verified 07/19/24 11:47 Antibiotics) Influenza Virus Vaccines AdvReac GUILLIAN Verified 07/19/24 11:47 (flu vaccine) BARRE Opioids - Morphine Analogues AdvReac Vomiting Verified 07/19/24 11:47 (narcotics) Family History Mother Myocardial infarction Leukemia Father Brain cancer Surgical History H/O vaginal hysterectomy History of bladder surgery Hx of tonsillectomy H/O ventral hernia repair History of bilateral carpal tunnel release H/O hernia repair Hx of cholecystectomy History of back surgery History of total knee replacement History of abdominal surgery Social History Smoking Status: Never smoker alcohol intake: never ROS ROS ED ROS Narrative constitutional: Denies any fevers, chills, headaches Cardiovascular: Denies chest pain Respiratory: Denies shortness of breath Abdomen: Denies nausea vomit diarrhea : Denies any urinary symptoms Neurological: Denies numbness, weakness, tingling Musculoskeletal: Complains of left knee pain as noted above Skin: Denies rashes or lesions EXAM Physical Exam Narrative Exam Narrative: General: Patient lying in bed rest comfortably did not appear to be in acute distress Head: Atraumatic, normocephalic Eyes: PERRL bilateral, EOMI bilateral, no conjunctival injection noted Neck: Soft, supple, trach midline Cardiovascular: Regular rate and rhythm no murmurs gallops rubs noted Respiratory: Clear to auscultation bilaterally Musculoskeletal: Patient has full range of motion of her left knee, no tenderness palpation of her left knee Extremities: +4/5 strength noted in the bilateral upper and lower extremities, radial pulses +2/4 in the bilateral extremities, no pedal edema no exam, DP pulses +2/4 in the bilateral lower extremities Neurological: Patient follow commands knew that she was at [facility] year is 2023 Skin: Warm, dry, no rashes or lesions noted no overlying erythema of her left knee noted Const Vital Signs: 07/19/24 11:43 Temperature 97.6 F L Temperature Source Oral Pulse Rate 53 L Respiratory Rate 16 Blood Pressure 178/86 H Blood Pressure Mean 116 Pulse Ox 97 Oxygen Delivery Method Room Air MDM MDM MDM Narrative Medical decision making narrative: Patient is a 83-year-old female who presented to the emerged part with a chief complaint of left knee pain. Patient will have workup performed here on the differential diagnose includes but not limited to osteoarthritis, musculo skeletal strain, pathologic fracture. Once workup is obtained reviewed she will be reevaluated. Patient be given Toradol. Patient's X-ray of her knee reviewed and showed stable osteopenia tricompar tmental arthrosis and a small joint effusion. 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 Did discuss the results with the patient and she would like to go home at this point time. She states that she has an orthopedic surgeon that operated on her right knee for her total knee arthroplasty she was advised to follow-up with them in the outpatient setting. She was advised to ice, elevate and rotate Tylenol and ibuprofen [id number] and use her already prescribed tramadol as needed for severe pain. She is agreeable this plan she would like to go home all question concerns answered she was discharged home in stable condition with instructions to return if worsening symptoms or other concerns. Radiography Diagnostic Testing: Clinical Impression(s) from Imaging Studies Knee X-Ray 07/19/24 12:35 IMPRESSION: Stable osteopenia, tricompartmental arthrosis and small joint effusion. 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 Electronically Signed: Zay Joseph MD at 12:50 EDT , Discharge Plan Triage Chief Complaint: Lower Extremity Injury ED Provider: Greg Mayer Dx/Rx/DC Orders Clinical Impression: Left knee pain Prescriptions: No Action isosorbide mononitrate 60 mg tablet extended release 24 hr 60 mg PO DAILY spironolactone 25 mg tablet 12.5 mg PO DAILY atorvastatin 80 mg tablet 80 mg PO QPM lisinopril 20 mg tablet 20 mg PO DAILY tolterodine [Detrol LA] 4 mg capsule,extended release 24hr 4 mg PO DAILY meclizine 25 MG tablet 25 mg PO Q6H PRN (Reason: dizziness) Patient Comments: dizziness nitroglycerin 0.4 MG tablet 0.4 mg sublingual Q5M PRN (Reason: Chest Pain) Patient Comments: chest pain gabapentin 300 MG capsule 300 mg PO BID Patient Comments: pain aspirin 81 MG tablet,chewable 81 mg PO DAILY@0800 Patient Comments: heart health clobetasol-emollient 30 GM cream 30 g TP MOWEFR Patient Comments: vaginal thinning calcium carbonate-vitamin D3 [Caltrate with Vitamin D3] 1 TAB tablet 1 tab PO DAILY@0800 Patient Comments: supplement metoprolol succinate [Toprol XL] 50 MG tablet extended release 24 hr 50 mg PO DAILY Pravastatin tablet 20 mg PO DAILY levothyroxine 100 MCG tablet 200 mcg PO MOTUTHSA levothyroxine 150 MCG tablet 300 mcg PO SUWEFR omeprazole 20 MG capsule 20 mg PO DAILY hydrochlorothiazide 25 MG tablet 25 mg PO DAILY metoclopramide HCl 10 MG tablet 10 mg PO 4X/DAY Vitamin B12 25 mcg PO DAILY amlodipine 5 MG tablet 5 mg PO DAILY Qty: 30 0RF estradiol [Estrace] 42.5 GM cream 0.5 g vaginal MOFR 0RF potassium 99 MG tablet 99 mg PO DAILY docusate sodium [DOK] 100 MG capsule 200 mg PO QHS biotin-keratin [Biotin Plus Keratin] 1 EACH tablet 1 ea PO DAILY hydrocodone-acetaminophen 1 TABLET tablet 1 - 2 tab PO Q6H PRN PRN (Reason: Moderate-severe pain) 3 Days Qty: 10 0RF amoxicillin-pot clavulanate 875 MG tablet 875 mg PO Q12H 8 Days Qty: 16 0RF ondansetron 4 MG tablet 4 mg PO Q8H PRN PRN (Reason: Nausea/Emesis) Qty: 20 0RF L.acidoph, paracasei,B. lactis 1 EACH capsule 1 ea PO BID Qty: 60 0RF simethicone 80 MG tablet 80 mg PO 4X/DAY Qty: 60 0RF cefpodoxime 200 mg tablet 200 mg PO Q12H 10 Days Qty: 20 0RF Rx Instructions: must administer with a meal/food Primary Care Provider: Jamal Darby Referrals: Jamal Darby MD [Primary Care Provider] - Activity Restrictions/Additional Instructions: Ice, elevate, rotate Tylenol and ibuprofen [id number] for pain control. Use your tramadol for severe pain. Follow-up with your orthopedic surgeon in the outpatient setting. Return if worsening symptoms or any other concerns Print Language: Maori Disposition Disposition: Home, Self Care
[2024-07-19] MEDS: Ketorolac 30 MG/ML Syringe IM (14:33)
[2024-07-19 15:00] VITALS: BP 168/74; PULSE 78; RESP 16; TEMP 36.6; O2SAT 97
== END 2024-07-19 15:12 | disposition home or self-care (01) ==
PROVIDERS: Emergency Provider Emergency Medicine; PCP Family Medicine; Visit Provider Emergency Medicine
DX: M25.562 Pain in left knee (principal); M17.12 Unilateral primary osteoarthritis, left knee; Z96.651 Presence of right artificial knee joint; N18.9 Chronic kidney disease, unspecified; E03.9 Hypothyroidism, unspecified
CPT/HCPCS: 73564; 96372; 99282

== ENCOUNTER → 2024-12-10 | Outpatient (CLI) | payer MEDICARE, SELFPAY ==
--- NOTE | 2024-12-10 07:30 | CT_ITS ---
PROCEDURE: EXTREMITY LOWER WITHOUT CONTRA REASON FOR EXAM: Surgical planning for left knee replacement.[facility] protocol TECHNIQUE: Multiple axial tomographic images of the left hip joint, knee joint and left ankle joint were obtained. Coronal and sagittal reconstruction was obtained as well. COMPARISON: None. FINDINGS: Bones: No evidence of fracture. Joints: Imaging of the left hip joint was obtained. There is evidence of a [id number] degree of joint space narrowing. No fracture or dislocation. Imaging of the left knee was obtained. Marked degree of joint space narrowing with sclerosis and degenerative spur formation along the medial femoral condyle. Tiny subchondral cysts in the medial femoral condyle. Mild degree of osteoarthritis of the patellofemoral joint. Imaging of the ankle joint was obtained. No significant abnormality is seen. Soft Tissues: Unremarkable. 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 One or more dose reduction techniques were used (e.g., Automated exposure contr ol, adjustment of the mA and/or kV according to patient size, use of iterative reconstruction technique). Reading Location: [place] [id number]
== END | disposition home or self-care (01) ==
LOC: CT 07:30
PROVIDERS: PCP Family Medicine; Referring Provider Specialist; Visit Provider Specialist
DX: Z01.818 Encounter for other preprocedural examination (principal); M17.12 Unilateral primary osteoarthritis, left knee; M21.162 Varus deformity, not elsewhere classified, left knee; M25.462 Effusion, left knee
CPT/HCPCS: 73700

== ENCOUNTER → 2024-12-27 | Outpatient (CLI) | payer MEDICARE, SELFPAY ==
--- NOTE | 2024-12-27 17:25 | CT_ITS ---
PROCEDURE: CTA HEAD AND NECK W/ CONTRAST REASON FOR EXAM: RT CAROTID ARTERY BRUIT TECHNIQUE: CTA HEAD AND NECK WITH IV CONTRAST AND 3-D CONTRAST: COMPARISON: None. FINDINGS: Examination is partially degraded by motion. AORTIC ARCH The aortic arch is normal. There is a common trunk of the innominate and left common carotid arteries. Atherosclerotic calcification of the proximal brachiocephalic arteries, without hemodynamically significant stenosis. The origins of the arch branch vessels are patent. EXTRACRANIAL CAROTIDS Mild atherosclerotic calcification of the bilateral carotid bifurcations and proximal ICA without hemodynamically significant stenosis. Otherwise, the common carotid, internal carotid and external carotid segments are widely patent throughout the neck. RIGHT ICA Maximum stenosis (NASCET): <10 % LEFT ICA Maximum stenosis (NASCET): <10 % SKULL BASE The petrous, cavernous and supraclinoid segments of the distal internal carotid arteries are patent with normal configuration. The ophthalmic arteries, posterior communicating artery and anterior choroidal artery origins are normal. INTRACRANIAL VASCULATURE Cerebral Arteries: Mild atherosclerotic calcification of the bilateral carotid siphons, without hemodynamically significant stenosis. The anterior, middle and posterior cerebral artery distributions are within normal limits. [place]: The A1 and P1 segments are patent. There is a patent anterior communicating artery with normal configuration. There are small patent posterior communicating arteries with normal configuration. Venous Drainage: Unremarkable. VERTEBROBASILAR SYSTEM Mild atherosclerotic calcification of the bilateral distal V3 and V4 is, without hemodynamically significant stenosis. Otherwise, the the proximal subclavian arteries, both vertebral arteries and basilar artery are widely patent. The cerebellar arteries are within normal limits. NONVASCULAR There is no abnormal intracranial enhancement. The ventricles, cisterns, sulci and parenchymal attenuation are normal. Bone windows are unremarkable. CT/CTA Head AND Neck W/ Contrast IMPRESSION: Scattered atherosclerotic calcification of the bilateral anterior and posterior intracranial and extracranial circulation without hemodynamically significant stenosis. One or more dose reduction techniques were used (e.g., Automated exposure contr ol, adjustment of the mA and/or kV according to patient size, use of iterative reconstruction technique). Reading Location[place] [facility] [place]
== END | disposition home or self-care (01) ==
LOC: CT 17:24
PROVIDERS: PCP Family Medicine; Visit Provider Family Medicine
DX: I65.29 Occlusion and stenosis of unspecified carotid artery (principal); R93.89 Abnormal findings on diagnostic imaging of other specified body structures; R09.89 Other specified symptoms and signs involving the circulatory and respiratory systems
CPT/HCPCS: 70496; 70498; Q9967

== ENCOUNTER 2025-01-03 07:12 | Observation (INO) | payer MEDICARE, SELFPAY ==
--- NOTE | 2024-12-09 11:27 | PAT.ANE_ITS ---
Pre-Assessment Diagnosis/Proposed Procedure Planned Operative Procedure(s): (L) Total Knee Replacement Robotic Arm Dennis Anesthesia History Anesthesia History - coding specialist home health: Anesthesia History - coding specialist home health Hx Hospitalization No 12/08/24 09:23 Any Problems With Anesthesia No 12/08/24 09:23 Cholinesterase deficiency No 12/08/24 09:23 You/Your Family Experience No 12/08/24 09:23 fever (hyperthermia) with Relationship Recent Exposure to Contagious No 08/15/14 17:19 Disease Does patient have nerve No 12/08/24 09:23 stimulator Patient instructed to have device shut off --Does patient have Pacemaker or ICD? When Was Last Pacemaker Check QUESTION #4 FULL TEXT: You/Your Family Experience fever (hyperthermia) with Anesthesia Last Oral Intake Last Oral intake: Last Oral Intake NPO since Meds taken in AM with sips of water? Meds patient instructed to take am of surgery PONV PONV - coding specialist home health: PONV - coding specialist home health Female Yes 12/08/24 09:23 HX of Motion Sickness No 12/08/24 09:23 HX of N/V After Surgery No 12/08/24 09:23 Non-Smoker Yes 12/08/24 09:23 Duration of Surgery greater Yes 12/08/24 09:23 than 60 minutes Number of Risk Factors 3 12/08/24 09:23 PONV Score Moderate Risk 12/08/24 09:23 Height & Weight Height & Weight: Anesthesia: Height & Weight Height 5 ft 4 in 07/19/24 11:43 Respiratory Assessment Respiratory Assessment - coding specialist home health: Respiratory Tract Infection Hx - coding specialist home health Hx Respiratory Tract Infection No 12/08/24 09:23 STOP Sleep Apnea STOP Sleep Apnea - coding specialist home health: STOP Sleep Apnea - coding specialist home health Hx Hypertension Yes: CONTROLLED WITH MED 12/08/24 09:23 Hx Sleep Apnea Yes 12/08/24 09:23 CPAP Yes 12/08/24 09:23 BIPAP No 12/08/24 09:23 Do you snore loudly (louder than talking or can be heard Do you often feel tired/ fatigued/ sleepy during daytime? Has anyone observed you stop breathing during sleep? STOP Results Positive 12/08/24 09:23 QUESTION #5 FULL TEXT : Do you snore loudly (louder than talking or can be heard through closed doors)? Tobacco Use History Tobacco Use History - coding specialist home health: Tobacco Use History - coding specialist home health Tobacco Use Smoking Status Never smoker 12/08/24 09:23 Hx Tobacco Use No 12/08/24 09:23 Years Smoking Packs Smoked per Day Smoking Cessation Date was within the last 15 years Hx Smoking Cessation Date Hx Smoking Cessation Counseling Hematologic Medial History Hematologic Hx - coding specialist home health: Hematologic Medical Hx - crt Hx of Blood Transfusion No 12/08/24 09:23 Hx of Transfusion in last 3 No 12/08/24 09:23 Months Date of Last Transfusion (if within last 3 months) Ever experience any problems No 12/08/24 09:23 with transfusion(s)? Specify any problems Hx of Preganancy in last 3 N/A 12/08/24 09:23 Months Nurse Filling Out Transfusion NBUCHER 12/08/24 09:23 & Questions: Date: 12/08/24 12/08/24 09:23 Time: 09:12/08/24 09:23 Patient unable to answer at this time (ie. confused, unrespo /Reproduction History /Reproductive History - coding specialist home health: /Reproductive Hx- coding specialist home health Hx Now No 12/08/24 09:23 Gestational Age (in weeks): EDC: Hx Hx Para Hx Section SAB No 12/08/24 09:23 [facility] Medical History (Updated 12/08/24 @ 09:37 by Gavi Chery) Wears hearing aid Loss of hearing Wears glasses Wears dentures Skin cancer of lip Cancer Thyroid disease Ambulates with cane Arthritis High cholesterol Syncope History of hiatal hernia Non-smoker CPAP (continuous positive airway pressure) dependence Sleep apnea Shortness of breath on exertion Chronic cough History of stress test History of echocardiogram Cardiology follow-up encounter Implantable loop recorder present STEPHANIE (obstructive sleep apnea) Orthostatic hypotension CKD (chronic kidney disease) Hyperthyroidism Esophageal dysphagia Home Medications ?Medication ?Instructions ?Recorded ?Last Taken ?Type gabapentin 300 mg capsule 300 mg PO TID 08/15/1408/14 History meclizine 25 mg tablet 25 mg PO Q6H PRN dizziness 1 08/15/14 History nitroglycerin 0.4 mg sublingual 0.4 mg sublingual Q5M PRN Chest 08/15/14 Unknown History tablet Pain metoprolol succinate 50 mg 50 mg PO DAILY 10/10/16 Unk nown History tablet,extended release 24 hr (Toprol XL) levothyroxine 100 mcg tablet 200 mcg PO DAILY 04/18/17 Unknown History atorvastatin 80 mg tablet 80 mg PO QPM 02/04/23 Unknow n History isosorbide mononitrate 60 mg 60 mg PO DAILY 02/04/23 U nknown History tablet,extended release 24 hr lisinopril 20 mg tablet 20 mg PO DAILY 02/04/23 Unkn own History spironolactone 25 mg tablet 25 mg PO DAILY 02/04/23 Un known History tolterodine 4 mg capsule,extended 4 mg PO DAILY Unknown History release 24 hr (Detrol LA) albuterol sulfate 0.63 mg/3 mL 0.63 mg inhalation Q4H PRN 12/08/24 Unknown History solution for nebulization shortness of breath or wheez ing budesonide-formoterol HFA 160 1 inh inhalation Q12H Unknown History mcg-4.5 mcg/actuation aerosol inhaler (Symbicort) guaifenesin 600 mg tablet, 600 mg PO DAILY 12/08/24 Un known History extended release 12 hr montelukast 10 mg tablet 10 mg PO DAILY 12/08/24 Unkn own History pantoprazole 40 mg tablet,delayed 40 mg PO DAILY 12/08 Unknown History release tramadol 50 mg tablet 100 mg PO BID 12/08/24 Unkno wn History Allergy/AdvReac Type Severity Reaction Status Date / Time amlodipine Allergy Intermediate Other Verified 12/08/24 09:17 adhesive Allergy Unknown Verified 12/08/24 09:17 Iodinated Contrast Media Allergy Angioedema Verified 12/08/24 09:17 (DYEE) iodine Allergy Unknown Verified 12/08/24 09:17 nitrofurantoin Allergy Unknown Verified 12/08/24 09:17 piroxicam Allergy Unknown Verified 12/08/24 09:17 Sulfa (Sulfonamide Allergy Unknown Verified 12/08/24 09:17 Antibiotics) Influenza Virus Vaccines AdvReac GUILLIAN Verified 12/08/24 09:17 (flu vaccine) BARRE Opioids - Morphine Analogues AdvReac Vomiting Verified 12/08/24 09:17 (narcotics) Family History Mother Myocardial infarction Leukemia Father Brain cancer Surgical History (Updated 12/08/24 @ 09:37 by Gavi Chery) History of colonoscopy History of esophagogastroduodenoscopy (EGD) History of cardiac catheterization History of cataract extraction with lens replacement History of lymph node excision History of arthroscopy of right knee H/O vaginal hysterectomy History of bladder surgery Hx of tonsillectomy H/O ventral hernia repair History of bilateral carpal tunnel release H/O hernia repair Hx of cholecystectomy History of back surgery History of total knee replacement History of abdominal surgery Social History Smoking Status: Never smoker alcohol intake: never Audit: Pertinent Findings Pertinent Findings EKG Perinent findings: NSR with nonspecific ST changes Stress test pertinent findings: Pharmacological stress test: Normal LVEF Echo (EF%) pertinent findings: Normal LV with EF of 57% Additional pertinent findings: per [facility] cardiology assessment, MACE of 10.1%, and acceptable risk for surgery from cardiovascular standpoint Recommendation Anesthesia Recommendation Anesthesia recommendation: OPTIMIZED for anesthesia
--- NOTE | 2024-12-10 07:26 | EKG12_ITS ---
Test Reason : PREOP Blood Pressure : */* mmHG Vent. Rate : 63 BPM Atrial Rate : 63 BPM P-R Int : 186 ms QRS Dur : 92 ms QT Int : 434 ms P-R-T Axes : -14 6 30 degrees QTcB Int : 444 ms Normal sinus rhythm Normal ECG Confirmed by NIRMAL ALLRED ([id number]), editor news ANABEL COVINGTON ([id number]) on 12/13/2024 7:15:19 AM Referred By: Beto Mcintosh Confirmed By: NIRMAL ALLRED
[2024-12-10 08:28] LABS: Absolute Lymphocyte Count 0.99 X10^3/uL (0.83-4.51); Absolute Neutrophil Count 2.3 X10^3/uL (2.0-7.7); Basophil# 0.03 X10^3/uL; Basophil% 0.7 % (0-1); Eosinophil# 0.23 X10^3/uL; Eosinophils% 5.7 % (0-5); Hematocrit 35.9 % (37-47); Hemoglobin 11.3 g/dL (12.0-15.0); Lymphocyte # 0.99 X10^3/ul (0.83-4.51); Lymphocyte % 24.6 % (19-41); Mean Corp Hgb Conc 31.5 g/dL (32-36); Mean Corpuscular Hgb 28.5 pg (27.0-32.0); Mean Corpuscular Volume 90.7 fL (81-99); Monocyte# 0.43 X10^3/uL; Monocyte% 10.7 % (0-10); NRBC Flagged by Analyzer 0 % (0-5); Neutrophil # 2.32 X10^3/uL (2.7-7.7); Neutrophil % 57.8 % (47-70); Platelet Count 239 K/mm3 (150-450); RBC Distribution Width CV 13.3 % (11.6-14.6); RBC Distribution Width SD 43.4 fl (35.1-43.9); Red Blood Count 3.96 M/mm3 (4.2-5.4)
[2024-12-10 08:57] LABS: Albumin, Serum 3.3 g/dL (3.2-5.0); Anion Gap 5 (5-15); BUN 29 mg/dL (7-18); BUN/Creat Ratio 29.8 RATIO (10-20); Calcium,Total 9.3 mg/dL (8.5-10.1); Chloride 110 mmol/L (98-107); Creatinine, Serum 0.97 mg/dL (0.55-1.02); EST Glomerular Filtration Rate 58 mL/min (>60); Est Glom Filt Rate - Afr Amer 70 mL/min (>60); Glucose 79 mg/dL (74-106); Potassium 4.3 mmol/L (3.5-5.1); Sodium Level 141 mmol/L (136-145)
[2024-12-10 09:53] LABS: Magnesium 2.3 mg/dL (1.6-2.6)
[2024-12-23 12:24] LABS: Absolute Lymphocyte Count 1.41 X10^3/uL (0.83-4.51); Absolute Neutrophil Count 3.1 X10^3/uL (2.0-7.7); Basophil# 0.03 X10^3/uL; Basophil% 0.6 % (0-1); Eosinophil# 0.23 X10^3/uL; Eosinophils% 4.3 % (0-5); Hematocrit 36.5 % (37-47); Hemoglobin 11.8 g/dL (12.0-15.0); Lymphocyte # 1.41 X10^3/ul (0.83-4.51); Lymphocyte % 26.4 % (19-41); Mean Corp Hgb Conc 32.3 g/dL (32-36); Mean Corpuscular Hgb 28.6 pg (27.0-32.0); Mean Corpuscular Volume 88.6 fL (81-99); Mean Platelet Vol. 9.9 fl (6.2-12.0); Monocyte# 0.56 X10^3/uL; Monocyte% 10.5 % (0-10); NRBC Flagged by Analyzer 0 % (0-5); Neutrophil # 3.09 X10^3/uL (2.7-7.7); Neutrophil % 57.6 % (47-70); Platelet Count 243 K/mm3 (150-450); RBC Distribution Width CV 14.3 % (11.6-14.6); RBC Distribution Width SD 44.7 fl (35.1-43.9); Red Blood Count 4.12 M/mm3 (4.2-5.4); White Blood Count 5.4 K/mm3 (4.4-11.0)
--- NOTE | 2024-12-30 21:34 | HP.PCM_ITS ---
History and Physical History and Physical Patient Name: Janeen Lopez : 1940From:? GARRICK FAULKNER PA-C DATE OF PRE-OPERATIVE EXAM: 12/29/2024 DATE OF SURGERY:? 01/03/2025 ? SURGICAL PROCEDURE:? Robotic-assisted left total knee arthroplasty HISTORY OF PRESENT ILLNESS: Preoperative history and physical exam was performed on December 29, 2024.? This is an 84-year-old female who has had ongoing pain in the left knee for several years.? The pain has been progressively been getting worse over the past year.? Patient has had a previous episode of syncope where she passed out and woke up on the floor.? Pain is located on the medial aspect of her knee.? It radiates into the lower leg.? Pain has been constant and sharp.? Increased with going up and down stairs, walking, and standing.? Pain can reach 10/10 with activities.? She has difficulty getting up from a seated position due to the pain.? Pain does occasionally awaken her at nighttime.? She has been using a cane.? She feels unsafe going up and down steps.? She has difficulty with activities of daily living including shopping.? Patient has fallen in the past.? She denies past history of surgery on the left knee.? She has attempted rest, ice, elevation and previous corticosteroid injections with minimal relief.? She has tried physical therapy and home exercises with minimal relief.? She has tried oral medication including tramadol, Motrin, Tylenol with minimal relief.? Patient reports that she has allergy to morphine.? Patient has obtain surgical clearance from the primary care provider Dr. Darby and manager presentation Dr. Jacques who recommends continuing aspirin.? Patient has significant medical history pertinent for sleep apnea, hypertension, gastroesophageal reflux disease, chronic kidney disease stage III, coronary artery disease, rheumatoid arthritis, anxiety, benign paroxysmal positional vertigo, vitamin B12 deficiency, restless leg syndrome, performed vascular disease, degenerative lumbar disc disease, overactive bladder, Sjogren's syndrome, aortic valve stenosis.? She denies past history of DVT or pulmonary embolism.? No recent chest pain, shortness of breath.? Patient is a poor historian but states that she is on medications for chronic urinary tract infections.? She does see a urologist Dr. Fragoso.? We are reaching out to Dr. Fragoso for surgical clearance.? Patient states she is asymptomatic.? Patient has follow-up with the urologist on 2024 for clearance.? After failing conservative measures and discussing all treatment options with Dr. Beto Mcintosh, the patient does wish to proceed with a robotic assisted left total knee arthroplasty.? Preoperative lab work did reveal decreased nutritional values in which patient was started on our nutrition protocol.? Repeat labs did show improvement with the absolute lymphocyte and albumin and appropriate to proceed with surgery.? We did find her anemic preoperatively with hemoglobin 11.8.? She does have history of iron deficiency.? She is currently asymptomatic. REVIEW OF SYSTEMS: Review Of Systems: Constitutional: Denies change in appetite, fever and weight change. Cardiovasular: Denies chest pain, heart murmur and irregular heartbeat. Respiratory: Reports cough, shortness of breath and wheezing, but denies pneumonia and tuberculosis. Gastrointestinal: Reports heartburn, nausea and difficulty swallowing, but denies constipation, diarrhea, rectal itching, bloody stools and vomiting. Musculoskeletal: Reports leg swelling, pain, trouble walking and weakness. Skin: Denies Raynaud's, history of shingles and tattoo. Neurological: Denies ambulatory dysfunction, dizziness, numbness/tingling and tremor. Psychiatric: Denies anxiety, insomnia and stress. Hematologic/Lymphatic: Reports anemia and bleeding/bruising tendency, but denies past transfusion. Reviewed and updated. 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 Effective Date: 09/29/2024 Living Will Effective Date: 09/29/2024 Past Medical History: Medical Problems: Thyroid Disease - hypo Sleep Apnea, Acid Reflux, Hypercholesterolemia, High Blood Pressure Kidney Disease/Renal Failure - stage 3 anxiety, Coronary Artery Disease (CAD) Arthritis - Rheumatoid Heart failure, Hard Of Hearing Cancer - Skin Psoriasis - hair Covid- 19, Covid-19 Vaccine, hyperlipidemia, anxiety, Rheumatoid Arthritis, non rheumatic mitral valve regurgitation, non rheumatic aortic valve stenosis, chronic heart failure with preserved ejection fraction, orthostatic hypotension, sjogren's sydrome, benign paroxysmal positional vertigo, Monoclonal gammopathy of undetermined significance, Vitamin B12 deficiency, restless leg syndrome, headaches, tinnitus left ear, Vascular Disease/ Peripheral, chronic cough, degenerative disc disease lumbar, overactive bladder, history of guillain barre syndrome history of syncope - last episode was years ago presbyesophagus, right cariod bruit, anemia Accidents: None Surgical Hx: Cataracts, Gallbladder Hernia Repair - x2 Hysterectomy, Tonsillectomy, Knee Arthroscopy Rt, Knee Replacement Rt Anesthesia Complications: None Assistive Devices: Cane, Cpap, Dentures, Glasses, Hearing Aid Reviewed and updated. SOCIAL HISTORY: Social History: Marital: .Occupation: Retired.Work Status: Retired.Hand Dominance: Right- handed. Personal Habits:? Cigarette Use: Never Smoked Cigarettes.Smokeless Tobacco: Never Used Smokeless Tobacco.E-Cigarette Use: Never used.Alcohol: Denies use.Drug Use: Denies Use.Enjoy Exercising: Never Exercises. Reviewed and updated. VITALS: Ht: 64 Wt: 210lb Wt k.256 BMI: 36.0 BP: 130/78 Pulse: 71 Resp: 16 T: 97.5 T: 36.4C Pain Level: 10 O2SatR: 97 ALLERGIES: Flu Virus Vaccine Iodine IVP Dye Adhesives Amlodipine Narcotics Piroxicam Sulfa MEDICATIONS: Ferrous Sulfate 325 (65 Fe) MG take 1 tablet by mouth twice a day, Folic Acid 1 mg 1 by mouth every day, Tramadol HCL 50 mg 2 po bid, Metoprolol Succinate ER 50 mg 1 po qdaily, Cefdinir 300 mg take 1 capsule by mouth two times a day for 7 days., Isosorbide Mononitrate ER 60 mg 1 po qdaily, Meclizine HCL 25 mg as needed, Spironolactone 25 mg 1 po qdaily, Cephalexin 500 mg 1 po qdaily, Pantoprazole Sodium 40 mg 1 po qdaily, Montelukast Sodium 10 mg 1 po qdaily, Atorvastatin Calcium 80 mg daily, Lisinopril 20 mg 1 po qdaily, Synthroid 200 mcg, Tolterodine Tartrate ER 4 mg 1 po qdaily, Albuterol Sulfate 0.63 mg/3ml use 1 ampule via nebulizer every 4 hours as needed for wheezing/shortness of janet, Gabapentin 300 mg 1 po tid, Amoxicillin 500 mg take 4 capsules by mouth one hour prior to appointment, Nitroglycerin 0.4 mg as needed, Nasal Ointment? as needed? due to cpap making nose sore, Simethicone 180 mg daily, Probiotic? daily, Voltaren Gel 1 % as needed, Aspirin 81 81 mg 1 po qdaily, Symbicort 160-4.5 m cg/Act as needed PRE-OP EXAM: General appearance:NORMAL? Other: Eyes: Conjunctivae and lids: NORMAL? Pupils: ERR Ears, Nose, Mouth, and Throat: NORMAL? Other: Inspection of lips, teeth and gums: NORMAL?? Other: Neck: Examination of neck: no masses noted. Respiratory: Assessment of respiratory effort: NORMAL?? Other: ? Auscultation of lungs: clear to auscultation no wheezes, rhonchi or rales. Cardiovascular:? Auscultation of heart: regular rate and rhythm, positive systolic murmur PHYSICAL EXAMINATION: On exam of the left knee there is no erythema or signs of infection.? She does walk with antalgic gait.? Tenderness to palpation along the medial joint line.? Patient has moderate effusion.? Range of motion 0 extension to 105 flexion.? Stable to varus and Richard stress test, stable to anterior/posterior drawer exam.? Patient has varus alignment which is correctable on exam.? Sensation intact to light touch. IMAGING STUDIES: Previous x-rays of the left knee reveal varus alignment with medial joint space narrowing, subchondral sclerosis, osteophyte formation consistent with severe stage IV [id number] erosive tricompartmental osteoarthritis.? Previous right knee arthroplasty well aligned. IMPRESSION: 1.? Severe left knee osteoarthritis 2.? Presence of right total knee arthroplasty 3.? Hypertension 4.? Thyroid disease 5.? Obstructive sleep apnea 6.? Gastroesophageal reflux disease 7.? Chronic kidney disease stage III 8.? Coronary artery disease 9.? Rheumatoid arthritis 10.? Aortic valve stenosis 11.? Chronic heart failure 12.? Orthostatic hypotension 13.? Sjogren's syndrome 14.? Benign paroxysmal positional vertigo 15.? Vitamin B12 deficiency 16.? Restless leg syndrome 17.? Peripheral vascular disease 18.? Degenerative lumbar disc disease 19.? Overactive bladder 20.? History of syncope 21.? History of urinary tract infections: Currently on chronic antibiotics 22.? History of iron deficiency 23.? Preoperative anemia: Hemoglobin currently 11.8 24.? Obesity with BMI 36.0 PLAN: Dr. Beto Mcintosh did discuss and review with the patient all treatment options including surgical versus nonsurgical options.? I will continue plan established by Dr. Beto Mcintosh.? Patient does wish to proceed with the above-stated procedure.? Potential risks, benefits, and complications of the procedure were discussed in detail including but not limited to , infection, nerve and blood vessel damage, persistent pain, numbness, tingling, paresthesias, blood clot, pulmonary embolism, and requirement for possible further surgery.? The patient expressed full understanding and has no further questions for the doctor.? Patient does agree to proceed with the above-stated procedure and has signed the surgery consent form. POST-OP MEDICATION PLAN: Pain Medications: Postoperative pain regimen will be initiated by Dr. Beto Mcintosh.? She has listed narcotics as allergies but states only morphine.? She tolerates tramadol and other narcotics.? I did advise patient we will begin with oxycodone and she has not to combine any tramadol with this medication.? She voiced understanding.? Patient has been started on our anemia protocol and nutrition protocol.? I did advise patient upon discharge from the hospital would recommend she follow up with the primary care provider for continued management of the anemia.? Patient is concerned about discharge home and our care management team will be involved for safe and appropriate discharge planning.? She will bring her walker to hospital.? We are awaiting clearance from the urologist Dr. Fragoso in which she has appointment on December 31, 2024.? She is on chronic antibiotics for history of urinary tract infections.? We also reached out to primary care physician who has been giving the tramadol and they would like orthopedics to manage her postoperative pain regimen. ? DVT Prophylaxis Plan:? Aspirin 81 mg twice daily for 4 weeks postoperatively.? Denies past history of DVT or pulmonary embolism This dictation was created using voice recognition software. Phonetic and/or grammatical errors may exist. ___? I have re-examined the patient.? There are no clinical changes since date of exam. ___? See progress notes for changes. ___? Dictated on admission Date: ? Time: Signature:
[2025-01-03] VITALS (18 sets, daily range): BP systolic 119–147; BP diastolic 56–78; PULSE 51–82; RESP 14–20; TEMP 36.1–36.7; O2SAT 92–99; BMI 36.3
[2025-01-03] MEDS: Lactated Ringers 1,000 ML 999 ML IV (07:27)
[2025-01-03] MEDS: Magnesium 1 GM over 15 mins IV (07:27)
[2025-01-03] MEDS: Acetaminophen 500 MG Tablet 1000 MG PO ×3 (07:28→20:38)
[2025-01-03] MEDS: Gabapentin 600 MG Tablet PO (07:28)
--- NOTE | 2025-01-03 07:40 | PCM.PRE.AN2 ---
ASA Classification* ASA Classification ASA Classification: 3 Assessment & Plan Anesthesia* Anesthesia Assessment Anesthesia Assessment: Discussed sedation and/or anesthesia options, risks, benefits, and alternatives with patient/parents/legal guardian/POA. Questions invited. The patient/parents/legal guardian/POA seems to understand and agrees to proceed with anesthesia plan. Reviewed the physical assessment, medical history, allergy history and patient home medications list prior to surgery/procedure/anesthetic and documented any changes. Performed airway and anesthesia risk assessments. Anesthesia Type Anesthesia Type: General and Block (Adductor Canal) History Source History Obtained from:: Patient and Chart Anesthesia Focused Assessment* Temperature: 96.9 F Pulse Rate: 61 Blood Pressure: 119/78 Respiratory Rate: 20 Pulse Ox: 97 Oxygen Delivery Method: Room Air Airway Assessment Mouth opens: >3 cm Mallampati Score: II Teeth Condition: Intact, Caps/Crowns (Top Front) and Dentures (Full Bottom) Neck Range of motion (ROM): Full ROM Focused Labs Anesthesia Preop lab: CBC WBC 5.4 K/mm3 (4.4-11.0) 12/23/24 12:08 12/23/24 RBC 4.12 M/mm3 (4.2-5.4) L 12/23/24 12:08 12/23/24 Hgb 11.8 g/dL (12.0-15.0) L 12/23/24 12:08 12/23/24 Hct 36.5 % (37-47) L 12/23/24 12:08 12/23/24 Plt Count 243 K/mm3 (150-450) 12/23/24 12:08 12/23/24 CHEMISTRY Potassium 4.3 mmol/L (3.5-5.1) 12/10/24 08:09 12/10/24 Sodium 141 mmol/L (136-145) 12/10/24 08:09 12/10/24 Magnesium 2.3 mg/dL (1.6-2.6) 12/10/24 08:08 12/10/24 BUN 29 mg/dL (7-18) H 12/10/24 08:09 12/10/24 Creatinine 0.97 mg/dL (0.55-1.02) 12/10/24 08:09 12/10/24 Glucose 79 mg/dL (74-106) 12/10/24 08:09 12/10/24 TSH 1.120 uIU/mL (0.358-3.740) 12/10/24 08:08 12/10/24 COAG Pre-Assessment Diagnosis/Proposed Procedure Planned Operative Procedure(s): (L) Total Knee Replacement Robotic Arm Dennis Anesthesia History Anesthesia History - human resources professional: Anesthesia History - human resources professional Hx Hospitalization No 12/08/24 09:23 Any Problems With Anesthesia No 12/08/24 09:23 Cholinesterase deficiency No 12/08/24 09:23 You/Your Family Experience No 12/08/24 09:23 fever (hyperthermia) with Relationship Recent Exposure to Contagious No 01/03/25 07:14 Disease Does patient have nerve No 12/08/24 09:23 stimulator Patient instructed to have device shut off --Does patient have Pacemaker No 01/03/25 07:14 or ICD? When Was Last Pacemaker Check QUESTION #4 FULL TEXT: You/Your Family Experience fever (hyperthermia) with Anesthesia Last Oral Intake Last Oral intake: Last Oral Intake NPO since 04:45 01/03/25 07:14 Meds taken in AM with sips of Yes 01/03/25 07:14 water? Meds patient instructed to take am of surgery PONV PONV - human resources professional: PONV - human resources professional Female Yes 12/08/24 09:23 HX of Motion Sickness No 12/08/24 09:23 HX of N/V After Surgery No 12/08/24 09:23 Non-Smoker Yes 12/08/24 09:23 Duration of Surgery greater Yes 12/08/24 09:23 than 60 minutes Number of Risk Factors 3 12/08/24 09:23 PONV Score Moderate Risk 12/08/24 09:23 Height & Weight Height & Weight: Anesthesia: Height & Weight Height 5 ft 4 in 01/03/25 07:14 Weight: 96.1 kg 01/03/25 07:14 Body Mass Index (BMI) 36.3 01/03/25 07:14 Respiratory Assessment Respiratory Assessment - human resources professional: Respiratory Tract Infection Hx - human resources professional Hx Respiratory Tract Infection No 12/08/24 09:23 STOP Sleep Apnea STOP Sleep Apnea - human resources professional: STOP Sleep Apnea - human resources professional Hx Hypertension Yes: CONTROLLED WITH MED 12/08/24 09:23 Hx Sleep Apnea Yes 12/08/24 09:23 CPAP Yes 12/08/24 09:23 BIPAP No 12/08/24 09:23 Do you snore loudly (louder than talking or can be heard Do you often feel tired/ fatigued/ sleepy during daytime? Has anyone observed you stop breathing during sleep? STOP Results Positive 12/08/24 09:23 QUESTION #5 FULL TEXT : Do you snore loudly (louder than talking or can be heard through closed doors)? 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 Specify any problems Hx of Preganancy in last 3 N/A 12/08/24 09:23 Months Nurse Filling Out Transfusion NBUCHER 12/08/24 09:23 & Questions: Date: 12/08/24 12/08/24 09:23 Time: 09:26 12/08/24 09:23 Patient unable to answer at this time (ie. confused, unrespo /Reproduction History /Reproductive History - human resources professional: /Reproductive Hx- human resources professional Hx Now No 12/08/24 09:23 Gestational Age (in weeks): EDC: Hx Hx Para Hx Section SAB No 12/08/24 09:23 Active Medications Active Medications: Current Medications Generic Name Dose Route Start Last Admin Trade Name Freq PRN Reason Stop Dose Admin Acetaminophen 1,000 mg 01/03/25 08:45 01/03/25 07:28 Acetaminophen 500 Mg Tablet PO 01/03/25 08:46 1,000 mg X1 ONE Administration Acetaminophen 1,000 mg 01/03/25 07:15 Acetaminophen 500 Mg Tablet PO Q8H AUGUSTUS Aspirin 81 mg 01/03/25 10:00 Aspirin 81 Mg Tab.Chew PO BID [facility] Tranexamic Acid 2,000 mg/ 0 mg 01/03/25 08:45 Sodium Chloride 100 ml OPERA.SITE 01/03/25 08:46 X1 ONE Sodium Chloride 77.4 ml/ 0 ml 01/03/25 08:45 Ropivacaine 200 mg/ OPERA.SITE 01/03/25 08:46 Epinephrine HCl 0.6 mg/ X1 ONE Ketorolac Tromethamine 30 mg/ Morphine Sulfate 5 mg Dexamethasone Sodium Phosphate 10 mg 01/03/25 08:45 Dexamethasone 10 Mg/Ml Vial IV 01/03/25 08:46 X1 ONE Enteral Nutritional Formula 237 ml 01/03/25 08:00 Ensure Surgery 237 Ml Liquid PO TIDCM [facility] Famotidine 20 mg 01/03/25 10:00 Famotidine 20 Mg Tablet PO DAILY [facility] Gabapentin 600 mg 01/03/25 08:45 01/03/25 07:28 Gabapentin 600 Mg Tablet PO 01/03/25 08:46 300 mg X1 ONE Administration Lactated Ringer's 1,000 mls @ 999 mls/hr 01/03/25 08:45 01/03/25 07:27 IV 01/03/25 09:45 999 mls/hr .Q1H1M AUGUSTUS Administration Cefazolin Sodium 2 gm/ N/A 20 mls @ 400 mls/hr 01/03/25 08:45 IV 01/03/25 08:47 PREOP ONE Magnesium Sulfate 1 gm/ 102 mls @ 408 mls/hr 01/03/25 08:45 01/03/25 07:27 Dextrose IV 01/03/25 08:59 408 mls/hr X1 ONE Administration Cefazolin Sodium 1 gm in 50 mls @ 150 mls/hr 01/03/25 07:15 IV 01/03/25 15:34 Q8H [facility] Insulin Human Lispro 1 - 6 unit 01/03/25 08:45 Insulin Lispro 100 Unit/Ml Insuln.Pen SC Q4H PRN PRN BG>/= 180, SEE PROTOCOL Protocol Morphine Sulfate 2 - 4 mg 01/03/25 07:12 Morphine 2 Mg/Ml Syringe IV Q2H PRN PRN Pain Score 4-10 Ondansetron HCl 4 mg 01/03/25 07:12 Ondansetron 4 Mg/2 Ml Vial IV Q6H PRN PRN NAUSEA/VOMITING Promethazine HCl 12.5 mg 01/03/25 07:12 Promethazine 25 Mg Tablet PO Q6H PRN PRN NAUSEA/VOMITING Promethazine HCl 12.5 mg 01/03/25 07:12 Promethazine 25 Mg/Ml Syringe IM Q6H PRN PRN NAUSEA/VOMITING Senna/Docusate Sodium 2 tablet 01/03/25 10:00 Senna/Docusate Sodium 1 Tablet PO BID AUGUSTUS Tramadol HCl 50 - 100 mg 01/03/25 07:12 Tramadol 50 Mg Tablet PO Q6H PRN PRN Pain Score 4-10 PFSH Medical History (Updated 12/08/24 @ 09:37 by Gavi Chery) Wears hearing aid Loss of hearing Wears glasses Wears dentures Skin cancer of lip Cancer Thyroid disease Ambulates with cane Arthritis High cholesterol Syncope History of hiatal hernia Non-smoker CPAP (continuous positive airway pressure) dependence Sleep apnea Shortness of breath on exertion Chronic cough History of stress test History of echocardiogram Cardiology follow-up encounter Implantable loop recorder present STEPHANIE (obstructive sleep apnea) Orthostatic hypotension CKD (chronic kidney disease) Hyperthyroidism Esophageal dysphagia Home Medications ?Medication ?Instructions ?Recorded ?Last Taken ?Type gabapentin 300 mg capsule 300 mg PO TID 08/15/14 01/03/25 History meclizine 25 mg tablet 25 mg PO Q6H PRN dizziness 08/15/14 08/15/14 History nitroglycerin 0.4 mg sublingual 0.4 mg sublingual Q5M PRN Chest 08/15/14 Unknown History tablet Pain metoprolol succinate 50 mg 50 mg PO DAILY 10/10/16 01/03/25 History tablet,extended release 24 hr (Toprol XL) levothyroxine 100 mcg tablet 200 mcg PO DAILY 04/18/17 01/03/25 History atorvastatin 80 mg tablet 80 mg PO QPM 02/04/23 01/02/25 History isosorbide mononitrate 60 mg 60 mg PO DAILY 02/04/23 01/03/25 History tablet,extended release 24 hr lisinopril 20 mg tablet 20 mg PO DAILY 02/04/23 01/02/25 History spironolactone 25 mg tablet 25 mg PO DAILY 02/04/23 01/02/25 History tolterodine 4 mg capsule,extended 4 mg PO DAILY 02/04/23 01/02/25 History release 24 hr (Detrol LA) albuterol sulfate 0.63 mg/3 mL 0.63 mg inhalation Q4H PRN 12/08/24 Unknown History solution for nebulization shortness of breath or wheezing budesonide-formoterol HFA 160 1 inh inhalation Q12H 12/08/24 01/02/25 History mcg-4.5 mcg/actuation aerosol inhaler (Symbicort) guaifenesin 600 mg tablet, 600 mg PO DAILY 12/08/24 01/02/25 History extended release 12 hr montelukast 10 mg tablet 10 mg PO DAILY 12/08/24 01/02/25 History pantoprazole 40 mg tablet,delayed 40 mg PO DAILY 12/08/24 01/03/25 History release tramadol 50 mg tablet 100 mg PO BID 12/08/24 01/03/25 History Allergy/AdvReac Type Severity Reaction Status Date / Time amlodipine Allergy Intermediate Other Verified 01/03/25 07:11 adhesive Allergy Unknown Verified 01/03/25 07:11 Iodinated Contrast Media Allergy Angioedema Verified 01/03/25 07:11 (DYEE) iodine Allergy Unknown Verified 01/03/25 07:11 nitrofurantoin Allergy Unknown Verified 01/03/25 07:11 piroxicam Allergy Unknown Verified 01/03/25 07:11 Sulfa (Sulfonamide Allergy Unknown Verified 01/03/25 07:11 Antibiotics) hydrocodone AdvReac Vomiting Verified 01/03/25 07:11 Influenza Virus Vaccines AdvReac GUILLIAN Verified 01/03/25 07:11 (flu vaccine) BARRE Opioids - Morphine Analogues AdvReac Vomiting Verified 01/03/25 07:11 (narcotics) oxycodone AdvReac vomiting Verified 01/03/25 07:11 propoxyphene (From AdvReac Vomiting Verified 01/03/25 07:11 Darvocet-N) Family History Mother Myocardial infarction Leukemia Father Brain cancer Surgical History (Updated 12/08/24 @ 09:37 by Gavi Chery) History of colonoscopy History of esophagogastroduodenoscopy (EGD) History of cardiac catheterization History of cataract extraction with lens replacement History of lymph node excision History of arthroscopy of right knee H/O vaginal hysterectomy History of bladder surgery Hx of tonsillectomy H/O ventral hernia repair History of bilateral carpal tunnel release H/O hernia repair Hx of cholecystectomy History of back surgery History of total knee replacement History of abdominal surgery Social History Smoking Status: Never smoker alcohol intake: never Review of Systems (Anesthesia) ROS Narrative System reviewed and no additional complaints, except as documented.
[2025-01-03] MEDS: Cefazolin 2 GM in Syringe 10 ML IV (08:31)
[2025-01-03] MEDS: dexAMETHasone 10 MG/ML Vial IV (08:36)
--- NOTE | 2025-01-03 08:45 | KNEE_PTH ---
PATIENT: BETSY RIVAS LOC: [facility] U#:[id number] AGE/SX: 84/F ROOM: ME318 RE01/03/[address]: Dr. Beto Mcintosh MD : 1940 BED: 1 DIS: 01/05/2025 SPEC #: [id number] RECD: 01/03/25 13:19 STATUS: KELECHI BA #: [id number] RAO: 01/03/25 08:[address]: Beto Mcintosh DEPT: SURGICAL PATHOLOGY RECD BY: Ruby Dai ENTERED: 01/03/25 13:37 SP TYPE: TOTAL KNEE OTHR DR: DO Dr. Jamal Solo MD Tissues: Knee, NOS Procedures: Decalcification bone/plaque Surgery Specimen Level III HEADER OPERATION: ERAS, total knee replacement robotic arm assist PRE-OP DIAGNOSIS: Severe osteoarthritis left knee TISSUE SUBMITTED: A- Left knee bone MICROSCOPIC DIAGNOSIS A. Left knee, total knee arthroplasty: * Articular bone with reactive/degenerative change. * Focal scant trilineage hematopoiesis. MICROSCOPIC DESCRIPTION Slides are reviewed. GROSS DESCRIPTION A. Received in fixative is one container labeled with the patient's name and designated Bone- left knee. The specimen consists of multiple fragments of bone (eleven in total). The largest piece contains the medial and lateral condyles and it measures 7.7 x 5 x 2.5cm. The cartilaginous surfaces are entirely worn away. The specimen will be sawn and one piece will be placed in each two cassettes after decalcification. RS2 JS. 01/03/2025 CPT:[id number]
[2025-01-03 09:23] LABS: Bedside Glucose 108 mg/dL (74-106)
[2025-01-03] MEDS: JPS (Morphine 10mg/ml) OPERA.SITE (09:44)
[2025-01-03] MEDS: TRANEXAMIC ACID 2,000 MG, 0.9% Normal Saline (100mL Bag) 100 ML OPERA.SITE (09:44)
--- NOTE | 2025-01-03 10:09 | OP.PCM_ITS ---
Operative Report (Standard) Operative Information Date of Procedure: 01/03/25 Pre-Operative Diagnosis: Left knee primary osteoarthritis Post-Operative Diagnosis: Left knee primary osteoarthritis Surgery/Procedure Performed: Left robotic assisted minimally invasive total knee replacement environmental protection economist: Yes Lacquer Polisher: Bryanna Desai Tasks completed by political science research assistant: Closing and Retracting Additional fire control assistant?: Yes Additional Directional Bore Operator #2: Sylvia Grewal Tasks completed by fire control assistant #2: Opening, Dissecting tissue and Retracting Additional fire control assistant?: No Type of Anesthesia: General RN Documented Start/Stop Times: Operation Date: 01/03/25 08:45 Case Time Into Pre-Op 01/03/25 06:25 Anesthesia Start 01/03/25 08:31 Into Room 01/03/25 08:31 Out of Pre-Op 01/03/25 08:31 Procedure Start 01/03/25 09:06 Procedure End 01/03/25 10:21 Anesthesia End 01/03/25 10:25 Out of Room 01/03/25 10:25 Into Recovery 01/03/25 10:27 Procedure Start Time: 09:06 Procedure Stop Time: 10:21 Select all DRAINS/GRAFTS/IMPLANTS that apply: Prosthetic device Prosthetic device details: See body of operative report Special Medications: Ancef Estimated Blood Loss: 50 mL Fluids Replaced: 1500 mL crystalloid Specimen collected: Yes Description of specimen(s) removed: Bony cuts Description of surgery: Implants used: 1. [place] size 3 triathlon cruciate retaining distal femoral press-fit component 2. [place] size 4 press-fit tritanium tibial baseplate 3. [place] X3 9 mm polyethylene 4. [place] X3 32 mm asymmetric patella Brief history operative indications: 84-year-old F with history of left knee osteoarthritis with radiographic findings with loss of joint space, osteophyte formation and subchondral sclerosis. Failed conservative measures as mentioned in the H&P. Discussion of total knee arthroplasty as well as risk and benefits were discussed the patient including but not limited to blood loss, DVTs, PEs, neurovascular damage, general risk of anesthesia including loss of life, and stiffness or instability were discussed with patient. Patient demonstrated understanding and was able to sign informed consent. Procedure: On the date of procedure patient's left lower extremity was marked in the preoperative area. The patient was then taken back to the operating room where the patient was placed on the table in the supine position. All bony prominences were identified a well-padded. Anesthesia assumed control of the C-spine and airway and remained controlled throughout the remainder of the procedure. A tourniquet was placed on the left upper thigh and the leg was prepped in a sterile fashion. The surgeon then scrubbed at this time .Upon reentering the room left lower extremity was draped in a standard orthopedic fashion. A timeout was then called and everyone agreed upon the side, the site, the procedure to be performed, patient's identity and antibiotics given. Esmarch bandage was used to exsanguinate the extremity and the tourniquet was placed up to 250 mmHg with the knee in flexion. A midline skin incision was made and sharp dissection was taken down through skin subcutaneous tissue and fat. The standard medial parapatellar incision was made and the patella was subluxed laterally. An Appropriate deep MCL release was done and the fat pad was resected. Our attention was then directed to the patella. The patella was everted and a flat resection was made. The knee was then flexed up in 2 femoral pins were placed inside the incision and 2 tibial pins were placed outside the incision in the medial tibia bicortically. Once this was completed the 2 checkpoints in the femur and tibia were placed. Knee was then flexed up and the bony landmarks were registered. Once this was completed knee was taken through range of motion and manually stressed allowing us to a plan for an appropriate tibial cut. The robotic arm was brought into the field sterilely and checkpoint and saw were registered. Based on the patient's deformity the tibial cut was made in 1 degree of air. At this time the tensioner was then placed in the joint and ligament tension was checked at 90 degrees and full extension. Based on the patient's ligamentous tension appropriate adjustments were made to the operative plan and ligament releases were done. Once we were happy with our operative plan with balanced flexion and extension gaps our attention was directed to the femur. The robot was brought into the field sterilely and registered. Posterior condylar cuts, anterior chamfer cuts and anterior cuts were appropriately made for a size 3 femur. When these were completed the saws were switched out in the distal femoral and posterior chamfer cuts were made. Protecting the soft tissue throughout this time. A size 4 tibial base plate was selected. the knee was flexed to 90 degrees and the soft tissues and posterior osteophytes were removed from the joint. 40 cc of the periarticular injection was injected into the posterior medial corner of the joint. The appropriate trials were then placed on the femur and tibia. A trial polyethylene was trialed to ensure proper balancing and stability of the knee. The appropriate tibial internal rotation was then marked with a bovie. Our attention was then directed to the patella. The lug holes were drilled and the patella trial was placed. Patellar tracking was checked and deemed appropriate. Once we were happy lug holes were drilled for the femur and trial components were removed. The tibia was subluxed and pinned into place and the keel was punched and drilled appropriately. Final components were verified and opened. The wound was copiously irrigated with normal saline. When the cement was ready the components were impacted into place starting with the tibia then the femur, finally the patella was compressed into place. The trial poly component was placed and the knee was placed in full extension. Once the the implants were secured, the tracking, alignment and balance were verified and a size [] polyethylene component was placed. Once the final components were placed a 3-minute dilute Betadine lavage was performed followed by an Irrisept lavage was performed and the wound was copiously irrigated with normal saline solution and the periarticular injection was given. The wound was closed in a layer kimble fashion using #1 vicryl interrupted sutures for the arthrotomy, 2-0 interrupted Vicryl suture for the subcuticular layer and lorenzo for final skin closure. A sterile compressive dressing was then placed. The patient was then awakened from anesthesia, transferred to the [facility] and transferred to the PACU for recovery. Post op plan DVT ppx: ASA 81mg BID, thigh high compression stockings Follow up: in office in 2 weeks for wound check PT: to start POD #0 at hospital, outpatient PT should be arranged. My physician fire control assistant was a vital part of this case, they was important because there was not another skilled set of hands available to their training and aptitude needed for safe and appropriate completion of this case. They were important in appropriate retraction during the case, and protection of soft tissues during bony cuts. In particular the experience and skill of this fire control assistant made for safe retraction and exposure during implantation of medical implants without damage to vital soft tissues or structures. His intimate knowledge of the case and my steps aided in safe and expedient completion of the procedure as well as appropriate position of the leg during the case. He was also vital in assisting with closure under my direct supervision. Due to the complexity of this case robotic arm was used to assist in the surgery to improve accuracy and clinical outcomes. Surgical Findings: Stable knee with good patella tracking. Good bone stock and quality assess for press-fit implants intraoperatively. Stage IV osteoarthritis Complications Complications: No Admit VTE Documentation VTE Present on Admission: No VTE Mechan Device Prophylaxis: SCD's and Thigh High MARIE Hose VTE Pharm Prophylaxis ordered?: Yes
--- NOTE | 2025-01-03 10:30 | RAD_ITS ---
PROCEDURE: KNEE 1 OR 2 VIEWS REASON FOR EXAM: POST OP TECHNIQUE: 2 views of the left knee COMPARISON: Comparison is made with prior study dated July 19, 2024. FINDINGS: The patient is status post total knee replacement. There is good alignment. Postoperative soft tissue swelling RAD/Knee 1 or 2 Views IMPRESSION: Status post total knee replacement. There is good alignment. Postoperative so ft tissue swelling. Reading Location: [facility]
--- NOTE | 2025-01-03 10:35 | PCM.POST.ANE ---
Anesthesia: Postop Eval I Current Vital Signs Temperature: 97.3 F Pulse Rate: 69 Blood Pressure: 129/56 Respiratory Rate: 16 Pulse Ox: 92 Assessment Airway patent: Yes Spontaneous unlabored respirations: Yes nausea: No Vomiting: No Anesthesia Complication: No Fluid Hydration Crystalloid volume administer (ml): 1,600 Total IV fluid infused: 1,600 Progress Note Anesthesia document: Postop Eval 1 completed: Yes
--- NOTE | 2025-01-03 11:13 | POSTOPAN2_ITS ---
Anesthesia Postop Eval I Sum Postop Eval Completion status Anesthesia document: Postop Eval 1 completed: Yes Anesthesia Postop Eval I Summary Anesthesia Postop Eval I Summary: Anesthesia Postop Eval I: Assessment Summary Airway patent Yes 01/03/25 10:35 [email or web address] Spontaneous unlabored Yes 01/03/25 10:35 [email or web address] respirations Mental status nausea No 01/03/25 10:35 [email or web address] Vomiting No 01/03/25 10:35 [email or web address] [email or web address] Anesthesia Postop Eval I: Fluid Summary Crystalloid volume administer 1,600 01/03/25 10:35 [email or web address] (ml) Colloids volume administered ( ml) Blood Product volume administered (ml) Total IV fluid infused 1,600 01/03/25 10:35 [email or web address] [email or web address] Anesthesia Postop Eval I: Summary Notes Anesthesia Complication No 01/03/25 10:35 [email or web address] Anesthesia Complication Comment: Post-operative progress note Anesthesia: Postop Eval II Evaluation Mental status: Awake Pain Level: 1 nausea: No Vomiting: No
--- NOTE | 2025-01-03 11:13 | PCM.POSTANE2 ---
Anesthesia Postop Eval I Sum Postop Eval Completion status Anesthesia document: Postop Eval 1 completed: Yes Anesthesia Postop Eval I Summary Anesthesia Postop Eval I Summary: Anesthesia Postop Eval I: Assessment Summary Airway patent Yes 01/03/25 10:35 BUILDING CARPENTER [email or web address] Spontaneous unlabored Yes 01/03/25 10:35 BUILDING CARPENTER [email or web address] respirations Mental status nausea No 01/03/25 10:35 BUILDING CARPENTER [email or web address] Vomiting No 01/03/25 10:35 BUILDING CARPENTER [email or web address] Anesthesia Postop Eval I: Fluid Summary Crystalloid volume administer 1,600 01/03/25 10:35 BUILDING CARPENTER [email or web address] (ml) Colloids volume administered ( ml) Blood Product volume administered (ml) Total IV fluid infused 1,600 01/03/25 10:35 BUILDING CARPENTER [email or web address] Anesthesia Postop Eval I: Summary Notes Anesthesia Complication No 01/03/25 10:35 BUILDING CARPENTER [email or web address] Anesthesia Complication Comment: Post-operative progress note Anesthesia: Postop Eval II Evaluation Mental status: Awake Pain Level: 1 nausea: No Vomiting: No
[2025-01-03] MEDS: Famotidine 20 MG Tablet PO (13:21)
--- NOTE | 2025-01-03 13:22 | PCM.CONS.GEN ---
Assessment & Plan Assessment/Plan (1) Status post total left knee replacement: (2) HTN (hypertension): PLAN: Plan Patient is an 84-year-old female who presented [facility] on 01/03/2025 for planned left knee replacement. Medicine consulted postoperatively for medical management. 1. Left knee primary osteoarthritis ? Orthopedic surgery primary. S/p left total knee replacement with Dr. Mcintosh on 01/03. Tolerated procedure well, no intraoperative complications. Follow-up postop CBC and BMP. Pain control, DVT prophylaxis and further management per orthopedics. Okay to continue home gabapentin. PT/OT/case management consulted. 2. Hypertension ? Mildly hypertensive to the 130s to 140s systolic postoperatively. Okay to resume home isosorbide mononitrate, lisinopril, Toprol and spironolactone tomorrow. 3. Bilateral calf cramping ? Patient reported calf cramping while working with physical therapy this afternoon postoperatively. Suspect muscular etiology but bilateral venous duplex ultrasound ordered by orthopedics to rule out DVT. Will monitor. Chronic medical conditions: ? Class II obesity: BMI 36 on admit. Complicates hospital course, care and prognosis. ? Hypothyroidism: Continue home Synthroid. ? Hyperlipidemia: Continue home statin. ? GERD: Continue home PPI. ? Overactive bladder: Continue home tolterodine. ? Chronic dizziness: Continue home meclizine as needed. ? Seasonal allergies: Continue home montelukast and albuterol inhaler as needed. DVT prophylaxis: Baby aspirin twice daily per orthopedics Total clinical time spent by myself addressing the patient's medical issues, reviewing all the data, and collaborating with patient's care team: 35 minutes. HPI Consult Data Date of Consult: 01/03/25 HPI Narrative Reason for Consultation: Postoperative medical management HPI Narrative: BETSY RIVAS, is a 84 F who presented to [facility] on 01/03/2025 for planned orthopedic procedure. Medicine consulted postoperatively for medical management. Patient had left robotic assisted minimally invasive total knee replacement done with Dr. Mcintosh today. Tolerated procedure well, no intraoperative complications. Saw patient at bedside this afternoon, daughter present. Patient was sitting up comfortably in bedside chair, conversing normally and in no acute distress. She had worked with physical therapy shortly before I saw her and noted that she was able to walk to the door and back and did well with this. She did report some bilateral calf discomfort with walking and daughter noted concern for blood clots, so orthopedics ordered bilateral venous duplex ultrasound to rule this out. Patient otherwise denies any left knee pain currently. Was able to eat a good amount of her lunch and tolerated this well. No other acute concerns at this time. [facility] Medical History (Updated 12/08/24 @ 09:37 by Gavi Chery) Wears hearing aid Loss of hearing Wears glasses Wears dentures Skin cancer of lip Cancer Thyroid disease Ambulates with cane Arthritis High cholesterol Syncope History of hiatal hernia Non-smoker CPAP (continuous positive airway pressure) dependence Sleep apnea Shortness of breath on exertion Chronic cough History of stress test History of echocardiogram Cardiology follow-up encounter Implantable loop recorder present STEPHANIE (obstructive sleep apnea) Orthostatic hypotension CKD (chronic kidney disease) Hyperthyroidism Esophageal dysphagia Home Medications ?Medication ?Instructions ?Recorded ?Last Taken ?Type gabapentin 300 mg capsule 300 mg PO TID 08/15/14 01/03/25 History meclizine 25 mg tablet 25 mg PO Q6H PRN dizziness 08/15/14 08/15/14 History nitroglycerin 0.4 mg sublingual 0.4 mg sublingual Q5M PRN Chest 08/15/14 Unknown History tablet Pain metoprolol succinate 50 mg 50 mg PO DAILY 10/10/16 01/03/25 History tablet,extended release 24 hr (Toprol XL) levothyroxine 100 mcg tablet 200 mcg PO DAILY 04/18/17 01/03/25 History atorvastatin 80 mg tablet 80 mg PO QPM 02/04/23 01/02/25 History isosorbide mononitrate 60 mg 60 mg PO DAILY 02/04/23 01/03/25 History tablet,extended release 24 hr lisinopril 20 mg tablet 20 mg PO DAILY 02/04/23 01/02/25 History spironolactone 25 mg tablet 25 mg PO DAILY 02/04/23 01/02/25 History tolterodine 4 mg capsule,extended 4 mg PO DAILY 02/04/23 01/02/25 History release 24 hr (Detrol LA) albuterol sulfate 0.63 mg/3 mL 0.63 mg inhalation Q4H PRN 12/08/24 Unknown History solution for nebulization shortness of breath or wheezing budesonide-formoterol HFA 160 1 inh inhalation Q12H 12/08/24 01/02/25 History mcg-4.5 mcg/actuation aerosol inhaler (Symbicort) guaifenesin 600 mg tablet, 600 mg PO DAILY 12/08/24 01/02/25 History extended release 12 hr montelukast 10 mg tablet 10 mg PO DAILY 12/08/24 01/02/25 History pantoprazole 40 mg tablet,delayed 40 mg PO DAILY 12/08/24 01/03/25 History release tramadol 50 mg tablet 100 mg PO BID 12/08/24 01/03/25 History Allergy/AdvReac Type Severity Reaction Status Date / Time amlodipine Allergy Intermediate Other Verified 01/03/25 07:11 adhesive Allergy Unknown Verified 01/03/25 07:11 Iodinated Contrast Media Allergy Angioedema Verified 01/03/25 07:11 (DYEE) iodine Allergy Unknown Verified 01/03/25 07:11 nitrofurantoin Allergy Unknown Verified 01/03/25 07:11 piroxicam Allergy Unknown Verified 01/03/25 07:11 Sulfa (Sulfonamide Allergy Unknown Verified 01/03/25 07:11 Antibiotics) hydrocodone AdvReac Vomiting Verified 01/03/25 07:11 Influenza Virus Vaccines AdvReac GUILLIAN Verified 01/03/25 07:11 (flu vaccine) BARRE Opioids - Morphine Analogues AdvReac Vomiting Verified 01/03/25 07:11 (narcotics) oxycodone AdvReac vomiting Verified 01/03/25 07:11 propoxyphene (From AdvReac Vomiting Verified 01/03/25 07:11 Darvocet-N) Family History Mother Myocardial infarction Leukemia Father Brain cancer Surgical History (Updated 01/03/25 @ 15:[address] Benedict Reddy DO) History of colonoscopy History of esophagogastroduodenoscopy (EGD) History of cardiac catheterization History of cataract extraction with lens replacement History of lymph node excision History of arthroscopy of right knee H/O vaginal hysterectomy History of bladder surgery Hx of tonsillectomy H/O ventral hernia repair History of bilateral carpal tunnel release H/O hernia repair Hx of cholecystectomy History of back surgery History of total knee replacement History of abdominal surgery Social History Smoking Status: Never smoker alcohol intake: never ROS Constitutional Constitutional: Denies chills, fatigue, fever(s) or weakness Eyes Eyes: Denies change in vision Cardiovascular Cardiovascular: Denies chest pain Respiratory/Chest Respiratory/Chest: Denies shortness of breath at rest Gastrointestinal Gastrointestinal: Denies abdominal pain Musculoskeletal Musculoskeletal: Reports other Details: Bilateral calf cramping noted ; Denies arthralgias or myalgias Neurologic Neurologic: Denies dizziness or headache(s) Physical Exam Const alert, oriented x3 and no apparent distress Constitutional Narrative: Pleasant elderly female, class II obesity, mildly fatigued appearing but otherwise sitting back comfortably in bedside chair, conversing normally, in no acute distress. General Appearance: cooperative and comfortable HEENT normocephalic, head/scalp atraumatic, hearing grossly normal bilaterally, nasal mucous membranes and turbinates normal and moist oral mucous membranes Eyes PERRL, EOMs intact bilaterally and conjunctivae normal Neck full ROM Chest inspection of chest normal Resp normal respiratory effort, normal air movement, no use of accessory muscles and clear to auscultation bilaterally Cardio regular rate, regular rhythm, no murmurs and peripheral pulses 2+ throughout GI normal to inspection, nondistended, normoactive bowel sounds, soft to palpation, non-tender and non-distended Back/Spine normal ROM Extremity Extremity Narrative: Left knee with dressing and ice pack in place. Skin no rashes or lesions noted Neuro moves all extremities and no focal motor deficits Speech: speech normal Motor Exam: strength 5/5 throughout Psych mental status grossly normal Lab / Micro Data 12/23/24 12:08 12/10/24 08:09 Labs: Laboratory Results - last 24 hr 01/03/25 07:08: POC Glucose 108 H Imaging Radiology Impression Knee X-Ray 01/03/25 10:30 IMPRESSION: Status post total knee replacement. There is good alignment. Postoperative soft tissue swelling. Reading Location: [facility] Charges/Coding Visit Charges Inpatient E&M: 37303 Subs Hosp L2
--- NOTE | 2025-01-03 14:57 | VDLE_ITS ---
Reason For Study Reason For Study: PAIN RIGHT LEFT GSV is normal. GSV is normal. CFV is compressible, spontaneous, phasic, competent CFV is compressible, spontaneous, phasic, competent, and demonstrates normal augmentation. and demonstrates normal augmentation. FV is compressible, spontaneous, phasic, competent FV is compressible, spontaneous, phasic, competent and demonstrates normal augmentation. and demonstrates normal augmentation. POP V is compressible, spontaneous, phasic, competent T/P Trunk is compressible. and demonstrates normal augmentation. PTV is compressible. T/P Trunk is compressible. LT PerV is compressible. PTV is compressible. NONVASCULAR ANAECHOIC area measuring 2.78CM x 1.26cm RT PerV is compressible. in the LT POP FOSSA AREA. Procedure POP V is NONCOMPRESSIBLE W/NO FLOW NOTED. This is a venous duplex using B-mode, color flow and spectral Doppler. Exam performed portable in patient room. The study was technically difficult. A preliminary report was called and/or faxed to Abigail Desai. VL/Venous Duplex US - [place]on Extrem Interpretation Summary Acute deep vein thrombosis is noted in the left popliteal vein. The remainder o f the left lower extremity deep venous system is patent and compressible. Deep veins of the right lower extremity are patent and compressible segmentally. There is no evidence of right lower extremity deep vein thrombosis. Valvular co mpetence appears intact within the proximal deep venous systems bilaterally. The great saphenous veins appear bila terally patent and compressible segmentally. A non-vascular, hypoechoic structure is noted in te left popliteal space, measuring 2.78 cm x 1.26 cm. This probably represents a popliteal cyst. Clinical correlation is advised. Ordering Physician: Beto Mcintosh Referring Physician: Jamal Darby Performed By: Lexie Palencia, TERRA, RVT
[2025-01-03] MEDS: Aspirin 81 MG TAB.CHEW PO (17:35)
[2025-01-03] MEDS: Cefazolin 1 GM/50 ML BAG IV (17:35)
[2025-01-03] MEDS: Ensure Surgery 237 ML LIQUID PO (17:35)
[2025-01-03] MEDS: Budesonide Respules 0.5 MG/2 ML AMPUL.NEB. INHALATION (19:40)
[2025-01-03] MEDS: Senna/Docusate Sodium 1 Tablet 2 TABLET PO (20:37)
[2025-01-03] MEDS: Gabapentin 300 MG Capsule PO (20:37)
[2025-01-03] MEDS: Atorvastatin Calcium 40 MG Tablet PO (20:37)
[2025-01-04] VITALS (8 sets, daily range): BP systolic 103–157; BP diastolic 56–83; PULSE 56–90; RESP 14–18; TEMP 36.6–37.1; O2SAT 94–100
[2025-01-04] MEDS: Cefazolin 1 GM/50 ML BAG IV (00:35)
[2025-01-04] MEDS: traMADol 50 MG Tablet PO ×4 (02:14→20:52)
[2025-01-04] MEDS: Acetaminophen 500 MG Tablet 1000 MG PO ×3 (05:29→21:06)
[2025-01-04] MEDS: Levothyroxine 100 MCG Tablet 200 MCG PO (05:29)
[2025-01-04] MEDS: Gabapentin 300 MG Capsule PO ×3 (05:29→21:06)
[2025-01-04 06:29] LABS: Hematocrit 27.7 % (37-47); Hemoglobin 9.9 g/dL (12.0-15.0); Mean Corp Hgb Conc 35.7 g/dL (32-36); Mean Corpuscular Hgb 33.2 pg (27.0-32.0); Mean Platelet Vol. 10.6 fl (6.2-12.0); Platelet Count 203 K/mm3 (150-450); RBC Distribution Width CV 15.9 % (11.6-14.6); RBC Distribution Width SD 50.4 fl (35.1-43.9); Red Blood Count 2.98 M/mm3 (4.2-5.4); White Blood Count 11.2 K/mm3 (4.4-11.0)
[2025-01-04 06:53] LABS: Anion Gap 8 (5-15); BUN 24 mg/dL (4-19); BUN/Creat Ratio 23.4 RATIO (10-20); Carbon Dioxide 23.6 mmol/L (21.0-32.0); Chloride 101 mmol/L (98-108); Creatinine, Serum 1.01 mg/dL (0.70-1.20); EST Glomerular Filtration Rate 54 (>60); Estimated Creatinine Clearance 44.98 ml/min (50-250); Glucose 141 mg/dL (70-99); Potassium 4.8 mmol/L (3.3-5.1); Sodium Level 132 mmol/L (133-145)
[2025-01-04] MEDS: Budesonide Respules 0.5 MG/2 ML AMPUL.NEB. INHALATION (07:17)
[2025-01-04] MEDS: Albuterol 2.5 MG/3 ML VIAL.NEB. INHALATION ×2 (07:17→11:06)
[2025-01-04] MEDS: Aspirin 81 MG TAB.CHEW PO ×2 (08:26→16:00)
[2025-01-04] MEDS: Metoprolol(XL)Succ 50 MG Tablet PO (08:27)
[2025-01-04] MEDS: Tolterodine Tartrate 4 MG CAP.SA PO (08:27)
[2025-01-04] MEDS: Ensure Surgery 237 ML LIQUID PO ×3 (08:27→16:00)
[2025-01-04] MEDS: Isosorbide Mononitrate 60 MG Tablet PO (08:29)
[2025-01-04] MEDS: Senna/Docusate Sodium 1 Tablet 2 TABLET PO ×2 (08:29→21:07)
[2025-01-04] MEDS: Montelukast 10 MG Tablet PO (08:29)
[2025-01-04] MEDS: Pantoprazole Sodium 40 MG Tablet PO (08:29)
[2025-01-04] MEDS: Spironolactone 25 MG Tablet PO (08:30)
[2025-01-04] MEDS: Lisinopril 20 MG Tablet PO (08:30)
--- NOTE | 2025-01-04 09:30 | CASEMGMT ---
Met with patient to complete CONTEH form. CONTEH form explained to patient who voiced understanding and signed form. Original form placed in pt?s chart and copy provided to patient. Pat Pretty, Discharge Planning Asst
--- NOTE | 2025-01-04 09:46 | PCM.PN.ORT ---
Subjective Subjective Patient patient appears to be uncomfortable in bed. Patient states that she is having terrible pain in her calves. Patient states her operative calf is giving her so much pain. Patient also states that she had some blood through her Jose Raul wrap on her MARIE hose from her dressing. Patient states that she did start anemia protocol prior to surgery. Patient states that she would like to go to the TCU if she can. Patient does not think that her will be able to care for her because of his weakness due to his hip. Patient states that she is having trouble swallowing. Patient denies having a bowel movement. Patient denies nausea, vomiting, dizziness. Patient denies shortness of breath, chest pain. Patient denies fever, chills, signs of infection. Objective Data Objective Data Vital Signs: Vital Signs Temp Pulse Resp BP Pulse Ox O2 Del Method O2 Flow Rate 97.9 F 61 16 133/56 H 96 Room Air 4 01/04/25 08:00 01/04/25 08:27 01/04/25 08:00 01/04/25 08:27 01/04/25 08:00 01/04/25 08:00 01/03/25 11:45 Oxygen Flow Rate (L/min) 4 Oxygen Delivery Method Room Air Weight: 96.1 kg Body Mass Index (BMI) 36.3 Intake & Output: Intake and Output for Last 24 Hours 01/02/25 01/03/25 01/04/25 23:59 23:59 23:59 Intake Total 2772 / 2772 50 / 50 Balance 2772 / 2772 50 / 50 Lab / Micro Data 01/04/25 05:47 01/04/25 05:47 Labs: Laboratory Results - last 24 hr 01/04/25 05:47: WBC 11.2 H, RBC 2.98 L, Hgb 9.9 L, Hct 27.7 L, MCV 93.0, MCH 33.2 H, MCHC 35.7, RDW Std Deviation 50.4 H, RDW Coeff of Yelitza 15.9 H, Plt Count 203, MPV 10.6, Sodium 132 L, Potassium 4.8, Chloride 101, Carbon Dioxide 23.6, Anion Gap 8, BUN 24 H, Creatinine 1.01, Estim Creat Clear Calc 44.98 L, Est GFR (MDRD) Non-Af 54 L, BUN/Creatinine Ratio 23.4 H, Glucose 141 H, Calcium 9.0 Micro: Microbiology 12/10/24 08:09 Swab (Method) Nasal Screen MRSA/MSSA - Final Radiography Diagnostic Testing: Radiology Impression Knee X-Ray 01/03/25 10:30 IMPRESSION: Status post total knee replacement. There is good alignment. Postoperative soft tissue swelling. Reading Location: [facility] Physical Exam Narrative 1. MARIE hose in place bilaterally. 2. SCDs placed bilaterally. 3. Dressing is with moderate to severe drainage at the distal dressing. Dressing will be changed today. 4. Dorsiflexion plantarflexion are performed actively without pain or restriction. 5. Sensation intact to light touch. 6. Neurovascularly intact. 8. Positive Homans on the left. 9. Negative Homans on the right. Const alert, oriented x3 and no apparent distress Assessment & Plan Assessment/Plan (1) Status post total left knee replacement: PLAN: Status post left total knee replacement day 1. 1. DVT prophylaxis: Patient will be on 81 mg aspirin 2 times daily for 4 weeks postoperatively. Patient will also be in MARIE hose for 2 weeks postoperatively. 2. Pain medications: Patient will be on Tylenol 1000 mg every 8 hours as well as tramadol as needed for pain control. Patient's primary care provider typically provides tramadol for patient. We reached out to primary care provider who asked that we manage postoperative pain. OARRS report was reviewed and checked in office today. The risk of abuse potential for narcotic pain medication was discussed and reviewed. Patient was advised not to drive a motor vehicle or operate heavy equipment while taking narcotic pain medication. 3. Constipation: Patient was instructed to take senna as instructed until the fifth bowel movement to decrease risk of impaction following surgery. Patient was instructed if they have not had a bowel movement in 3 days to call our office for reevaluation. 4. H&H: 9.9.7. Currently asymptomatic. Patient was following anemia protocol preoperatively. Will make sure patient is still following anemia protocol in hospital today. 5. Reactive leukocytosis: Patient's white blood cell count is currently 11.2. Patient is asymptomatic and vital signs are afebrile. Patient did receive intraoperative Decadron. 5. Physical therapy: Patient did work with physical therapy. Patient states that physical therapy went well although she was not able to go very far. Patient will continue to be weightbearing as tolerated with walker. 6. Incentive spirometer: Patient was encouraged to use incentive spirometer every hour that they are weak for the first week to exercise lungs and decrease risk of postoperative infection. 7. Patient will follow-up per postoperative instructions. 8. Patient's dressing was changed by nursing staff back to a silver Mepilex. Patient was educated that after 5 days patient can remove dressing and leave open to air as long as incision is clean dry and intact. 9. Doppler ultrasound was ordered on left lower extremity to rule out blood clot due to positive Homans and positive signs of lower extremity blood clot. Awaiting results. 9. Medicine is on board. Appreciate recommendations for safe and proper discharge planning. 10. Case management is on board appreciate recommendations for safe and proper discharge planning. 11 patient does have follow-up appointment scheduled for 2-week follow-up in office. 12. Disposition: Patient states that at this time she is not sure she is able to go home. Patient states that her is at home but she believes that he is going to be too weak to help take care of her due to his hip issues. Patient states that her daughters would come visit if she asked them to. Patient states at this time she has some safety concerns with going home and feels that she may be more safe at the TCU. Patient did get acceptance to TCU when patient is medically ready. At this time I think that patient would benefit from another night stay in the hospital due to poor performance with physical therapy this afternoon, Decreased sodium, As well as awaiting results of Doppler ultrasound.
--- NOTE | 2025-01-04 09:59 | PCM.PN.HOSP ---
Reason for Visit Reason for Visit: Diagnoses Essential (primary) hypertension (01/03/25) Encounter for other preprocedural examination (01/03/25) Presence of left artificial knee joint (01/03/25) Objective Data Objective Data Vital Signs: Vital Signs Temp Pulse Resp BP Pulse Ox O2 Del Method O2 Flow Rate 97.9 F 61 16 133/56 H 96 Room Air 4 01/04/25 08:00 01/04/25 08:27 01/04/25 08:00 01/04/25 08:27 01/04/25 08:00 01/04/25 08:00 01/03/25 11:45 Oxygen Flow Rate (L/min) 4 Oxygen Delivery Method Room Air Weight: 211 lb 13.828 oz Body Mass Index (BMI) 36.3 Intake & Output: Intake and Output for Last 24 Hours 01/02/25 01/03/25 01/04/25 23:59 23:59 23:59 Intake Total 2772 / 2772 50 / 50 Balance 2772 / 2772 50 / 50 Lab / Micro Data 01/04/25 05:47 01/04/25 05:47 Labs: Laboratory Results - last 24 hr 01/04/25 05:47: WBC 11.2 H, RBC 2.98 L, Hgb 9.9 L, Hct 27.7 L, MCV 93.0, MCH 33.2 H, MCHC 35.7, RDW Std Deviation 50.4 H, RDW Coeff of Yelitza 15.9 H, Plt Count 203, MPV 10.6, Sodium 132 L, Potassium 4.8, Chloride 101, Carbon Dioxide 23.6, Anion Gap 8, BUN 24 H, Creatinine 1.01, Estim Creat Clear Calc 44.98 L, Est GFR (MDRD) Non-Af 54 L, BUN/Creatinine Ratio 23.4 H, Glucose 141 H, Calcium 9.0 Micro: Microbiology 12/10/24 08:09 Swab (Method) Nasal Screen MRSA/MSSA - Final Radiography Diagnostic Testing: Radiology Impression Knee X-Ray 01/03/25 10:30 IMPRESSION: Status post total knee replacement. There is good alignment. Postoperative soft tissue swelling. Reading Location: [place] [address] Physical Exam Narrative Seen and examined. Patient has mild bruise and is staying on the dressing on the operative left KNEE otherwise doing well. Complain of hardness of her left calf and knee. Physical exam General: Alert, Oriented x3, Cooperative HEENT: Atraumatic, PERRLA, EOMI, Normocephalic Oral: No Gingival or Mucosal Lesions/ Ulcerations Neck: Supple, No JVD, Negative Carotid Bruits Chest wall/Lungs: Air entry diminished in bilateral lung bases. No crepitation/rhonchi Cardiovascular: Regular rate, Regular Rhythm, Normal S1, Normal S2, No M/G/R Abdomen: Bowel Sounds Present, Soft, Non Tender, Non-Distended : No dysuria. No renal angle tenderness. No suprapubic tenderness. Extremities: No edema, Capillary Refill Less than 3 Seconds Skin: Mild subcutaneous edema, bruise over left knee. Left knee surgical dressing has dry blood stain. Musculoskeletal: In duration over left calf and thigh muscle. Left knee is mildly swollen Neurological: Cranial nerves II-XII grossly intact, DTR 2+/4. No acute focal neurological deficit. Psych/Mental Status: Normal Affect, Appropriate. Assessment & Plan Assessment/Plan (1) Status post total left knee replacement: (2) HTN (hypertension): PLAN: Plan Patient is an 84-year-old female who presented [facility] on 01/03/2025 for planned left knee replacement. Medicine consulted postoperatively for medical management. 1. Left knee primary osteoarthritis ? Orthopedic surgery primary. S/p left total knee replacement with Dr. Mcintosh on 01/03. 01/04: Left knee surgical dressing has mild bloody stain. Dressing is getting changed. Left knee swollen and mildly tender. Patient also has induration of left calf and thigh. Venous duplex reported acute DVT in left popliteal vein. Remainder of the left lower extremity deep venous system and RLE is patent and compressible. Nonvascular hypoechoic structure in the left popliteal space measuring 2.78 x 1.26 centimeter suggestive of popliteal cyst. Recommends full anticoagulation once bleeding is controlled. Dr. Mcintosh called and left voice message to about left popliteal DVT 2. Hypertension: Blood pressure 133/56-103/76. Potassium is 4.8. ? Mildly hypertensive to the 130s to 140s systolic postoperatively. Toprol-XL 50 mg daily continued, isosorbide mononitrate and lisinopril doses decreased with holding parameters. Hold spironolactone. 3. Bilateral calf cramping ? Patient reported calf cramping while working with physical therapy this afternoon postoperatively. Suspect muscular etiology but bilateral venous duplex ultrasound ordered by orthopedics to rule out DVT. Will monitor. Hyponatremia: Patient sodium is 132. Her previous sodium are normal range from 1 36-1 41 last ferritin 2125. Most likely due to intraoperative fluid loss/dehydration. IV fluid normal saline ordered. Patient also chronically on spironolactone and lisinopril which has potential to decrease sodium. Potassium 4.8. Hold spironolactone. Complete UA and urine electrolytes, microalbumin and osmolality ordered Chronic medical conditions: ? Class II obesity: BMI 36 on admit. Complicates hospital course, care and prognosis. ? Hypothyroidism: Continue home Synthroid. ? Hyperlipidemia: Continue home statin. ? GERD: Continue home PPI. ? Overactive bladder: Continue home tolterodine. ? Chronic dizziness: Continue home meclizine as needed. ? Seasonal allergies: Continue home montelukast and albuterol inhaler as needed. DVT prophylaxis: Baby aspirin twice daily per orthopedics Charges/Coding Visit Charges Inpatient E&M: 19508 Subs Hosp L2
--- NOTE | 2025-01-04 10:23 | CASEMGMT ---
SHELLEY STEIN Assessment Face to Face with patient for initial transition planning/care coordination assessment. SHELLEY STEIN introduced self and role at [facility], pt voices understanding. Pt is A&Ox4 and is resting comfortably in bed and is calm. Pt at bedside. Care providers, pharmacy, and demographics verified. Admitting dx: TKR LACSyed Strata: 1 PCP: Jamal Darby Specialists: Dayna (Ortho), Georgie (Cardio [facility]) Preferred Pharmacy: [facility] Insurance: [employer] [facility] Prescription Benefit: Yes LNOK: Aidan John (H), Aimee Madrid (Daughter) Living Arrangements: Pt lives with her in a 2 story home with 3 steps to enter ADLs/IADLs: Reports independent at baseline but is currently requiring assistance Transportation: Self, DME: Cane, raised toilet seat, grab bars, FWW HHC/SNF: Hx @ [facility] TCU Pt?s goal: TCU Plan: Anticipate DC to [facility] TCU once medically ready. See PT notes. At this time, the pt requests to go to the TCU and states that she had a good experience there in the past. MS3 SHELLEY STEIN and SW notified and to make referral once appropriate. Pt denies further questions or concerns at this time. Silvestre Hutchinson RN, CM
--- NOTE | 2025-01-04 10:44 | CASEMGMT ---
Addendum entered by Sherri Mcgill 01/04/25 13:20: SW updated pt on referral acceptance. Pt agreeable to discharge plans. Plan: TCU; pending precert SHEY Emerson Original Note: Social Work- SW completed referral to TCU per pt request. Pt accepted. Precert to be started when pt is medically ready. Plan: TCU; pend precert SHEY Emerson
[2025-01-04] MEDS: Ferrous Sulfate 325 MG Tablet PO ×2 (12:27→16:00)
[2025-01-04 13:30] LABS: Bacteria 0 SEEN /hpf (None Seen); Mucous, Urine 0 SEEN /hpf (<or=2+); Squamous Epithelial Cells - UA 0 SEEN /hpf (5-10); White Blood Cells 0 SEEN /hpf (0-5)
[2025-01-04] MEDS: 0.9% Normal Saline (1000mL) 1,000 ML 75 ML IV (13:32)
[2025-01-04] MEDS: 0.9% Saline Lock 10 ML Syringe IV ×2 (13:33→21:05)
[2025-01-04 13:34] LABS: Color, Urine Straw (Yellow); Glucose, Dipstick Normal (Normal); Ketone-Dipstick Negative (Negative); Leukocyte Esterase-Dipstick Negative /ul (Negative); Nitrite-Dipstick Negative (Negative); Occult Blood-Urine Negative /ul (Negative); Protein-Dipstick Negative (Negative); Urine Bilirubin Dipstick Negative (Negative); Urine Clarity Clear (Clear); Urine Urobilinogen Normal (Normal)
[2025-01-04 14:13] LABS: Microalbumin,Random Urine < 12.0 mg/L (NO RANGE EST.); Protein, Urine (Random) 6.2 mg/dL (0.0-12.0); Protein:Creat Ratio 172 mg/g CRE (0-200); Urine Chloride < 20 mmol/L (Not Establ.); Urine Potassium 16.3 mmol/L (Not Establ.); Urine Sodium 22 mmol/L (Not Establ.)
[2025-01-04 14:23] LABS: Red Blood Cells-Urine 0 SEEN /hpf (0-5)
[2025-01-04 14:54] LABS: Osmolality, Urine 229 mOsm/KG
[2025-01-04] MEDS: APIXABAN 5 MG TABLET 10 MG PO ×2 (16:10→21:10)
[2025-01-04] MEDS: Atorvastatin Calcium 40 MG Tablet PO (21:07)
[2025-01-04 22:34] LABS: Hematocrit 28.1 % (37-47)
[2025-01-05] VITALS (7 sets, daily range): BP systolic 111–149; BP diastolic 51–68; PULSE 58–80; RESP 16–18; TEMP 36.6–36.8; O2SAT 95–98
[2025-01-05] MEDS: Gabapentin 300 MG Capsule PO ×2 (05:21→13:16)
[2025-01-05] MEDS: Levothyroxine 100 MCG Tablet 200 MCG PO (05:21)
[2025-01-05] MEDS: Acetaminophen 500 MG Tablet 1000 MG PO ×2 (05:21→13:15)
[2025-01-05] MEDS: 0.9% Saline Lock 10 ML Syringe IV (05:21)
[2025-01-05 05:59] LABS: Absolute Neutrophil Count 5.2 X10^3/uL (2.0-7.7); Basophil# 0.03 X10^3/uL; Basophil% 0.4 % (0-1); Eosinophils% 2.7 % (0-5); Hematocrit 28.4 % (37-47); Lymphocyte % 12.3 % (19-41); Mean Corp Hgb Conc 35.2 g/dL (32-36); Mean Corpuscular Hgb 32.4 pg (27.0-32.0); Mean Corpuscular Volume 91.9 fL (81-99); Mean Platelet Vol. 10.1 fl (6.2-12.0); Monocyte% 13.6 % (0-10); NRBC Flagged by Analyzer 0 % (0-5); Neutrophil # 5.16 X10^3/uL (2.7-7.7); Neutrophil % 70.5 % (47-70); Platelet Count 186 K/mm3 (150-450); RBC Distribution Width CV 16.3 % (11.6-14.6); Red Blood Count 3.09 M/mm3 (4.2-5.4); White Blood Count 7.3 K/mm3 (4.4-11.0)
[2025-01-05 06:24] LABS: Anion Gap 8 (5-15); BUN 20 mg/dL (4-19); BUN/Creat Ratio 22.4 RATIO (10-20); Calcium,Total 9.1 mg/dL (7.6-11.0); Carbon Dioxide 22.1 mmol/L (21.0-32.0); Chloride 104 mmol/L (98-108); EST Glomerular Filtration Rate 63 (>60); Estimated Creatinine Clearance 50.48 ml/min (50-250); Glucose 115 mg/dL (70-99); Potassium 4.3 mmol/L (3.3-5.1); Sodium Level 135 mmol/L (133-145)
[2025-01-05] MEDS: Budesonide Respules 0.5 MG/2 ML AMPUL.NEB. INHALATION (07:30)
[2025-01-05] MEDS: Folic Acid 1 MG Tablet PO (09:53)
[2025-01-05] MEDS: Pantoprazole Sodium 40 MG Tablet PO (09:55)
[2025-01-05] MEDS: Isosorbide Mononitrate 30 MG Tablet PO (09:55)
[2025-01-05] MEDS: APIXABAN 5 MG TABLET 10 MG PO (09:55)
[2025-01-05] MEDS: Montelukast 10 MG Tablet PO (09:57)
[2025-01-05] MEDS: Metoprolol(XL)Succ 50 MG Tablet PO (09:57)
[2025-01-05] MEDS: Aspirin 81 MG TAB.CHEW PO (09:57)
[2025-01-05] MEDS: Lisinopril 10 MG Tablet PO ×2 (09:58→10:06)
[2025-01-05] MEDS: Ferrous Sulfate 325 MG Tablet PO (09:58)
[2025-01-05] MEDS: traMADol 50 MG Tablet PO (10:06)
[2025-01-05] MEDS: Tolterodine Tartrate 4 MG CAP.SA PO (10:06)
--- NOTE | 2025-01-05 10:34 | PCM.PN.ORT ---
Subjective Subjective The patient was sitting in bed side chair with present upon examination. Patient denies any chest pain, shortness of breath, dizziness, lightheadedness, nausea or vomiting, or calf pain. Patient has allergies to multiple narcotics in which she tells us that she gets significant vomiting with oxycodone and hydrocodone. She has been tolerating the tramadol which has been helping with her pain. She has continued on Tylenol. With her medical history we are unable to use nonsteroidal anti-inflammatories. Patient has been tolerating therapy. She did have a Doppler ultrasound on January 04, 2025 which showed no acute DVT left popliteal vein. Patient has been started on starter pack for Eliquis by medicine. We will continue to follow labs. Patient will require follow-up with her PCP for continued management. She had no prior history of DVT before surgery. Patient has also obtained pre-CERT for her to go to the transitional care unit at [facility]. Medicine has cleared the patient. Objective Data Objective Data Vital Signs: Vital Signs Temp Pulse Resp BP Pulse Ox O2 Del Method O2 Flow Rate 98 F 80 18 142/68 H 95 Room Air 4 01/05/25 02:50 01/05/25 09:57 01/05/25 07:20 01/05/25 02:50 01/05/25 07:49 01/05/25 07:49 01/03/25 11:45 Oxygen Flow Rate (L/min) 4 Oxygen Delivery Method Room Air Weight: 96.1 kg Body Mass Index (BMI) 36.3 Intake & Output: Intake and Output for Last 24 Hours 01/03/25 01/04/25 01/05/25 23:59 23:59 23:59 Intake Total 2772 / 2772 50 / 50 1000 / 1000 Balance 2772 / 2772 50 / 50 1000 / 1000 Lab / Micro Data 01/05/25 05:37 01/05/25 05:37 Labs: Laboratory Results - last 24 hr 01/04/25 13:20: Urine Color Straw, Urine Clarity Clear, Urine pH 6.0, Ur Specific [place] 1.010, Urine Protein Negative, Urine Glucose (UA) Normal, Urine Ketones Negative, Urine Occult Blood Negative, Urine Nitrite Negative, Urine Bilirubin Negative, Urine Urobilinogen Normal, Ur Leukocyte Esterase Negative, Urine RBC 0 SEEN, Urine WBC 0 SEEN, Ur Squamous Epith Cells 0 SEEN, Urine Bacteria 0 SEEN, Urine Mucus 0 SEEN, Urine Osmolality 229, Ur Random Microalbumin < 12.0, U Random Total Protein 6.2, Ur Random Sodium 22, Urine Creatinine 36.00, Protein/Creatinin Ratio 172, Urine Potassium 16.3, Urine Chloride < 20 01/04/25 22:12: Hgb 10.0 L, Hct 28.1 L 01/05/25 05:37: WBC 7.3, RBC 3.09 L, Hgb 10.0 L, Hct 28.4 L, MCV 91.9, MCH 32.4 H, MCHC 35.2, RDW Std Deviation 52.0 H, RDW Coeff of Yelitza 16.3 H, Plt Count 186, MPV 10.1, Immature Gran % (Auto) 0.500, Neut % (Auto) 70.5 H, Lymph % (Auto) 12.3 L, [place] % (Auto) 13.6 H, Eos % (Auto) 2.7, Baso % (Auto) 0.4, Absolute Neuts (auto) 5.2, Absolute Lymphs (auto) 0.90, Nucleated RBC % 0, Sodium 135, Potassium 4.3, Chloride 104, Carbon Dioxide 22.1, Anion Gap 8, BUN 20 H, Creatinine 0.90, Estim Creat Clear Calc 50.48, Est GFR (MDRD) Non-Af 63, BUN/Creatinine Ratio 22.4 H, Glucose 115 H, Calcium 9.1 Micro: Microbiology 12/10/24 08:09 Swab (Method) Nasal Screen MRSA/MSSA - Final Radiography Diagnostic Testing: Radiology Impression Venous Doppler Study 01/03/25 14:57 Interpretation Summary Acute deep vein thrombosis is noted in the left popliteal vein. The remainder of the left lower extremity deep venous system is patent and compressible. Deep veins of the right lower extremity are patent and compressible segmentally. There is no evidence of right lower extremity deep vein thrombosis. Valvular competence appears intact within the proximal deep venous systems bilaterally. The great saphenous veins appear bilaterally patent and compressible segmentally. A non-vascular, hypoechoic structure is noted in te left popliteal space, measuring 2.78 cm x 1.26 cm. This probably represents a popliteal cyst. Clinical correlation is advised. Ordering Physician: Beto Mcintosh Referring Physician: Jamal Darby Performed By: Lexie Palencia, TERRA, RVT Physical Exam Narrative Vital signs stable and afebrile. MARIE hose are in place bilaterally. Will avoid SCDs due to DVT Patient is able to plantarflex and dorsiflex actively. Sensation is intact to light touch to saphenous, sural, superficial and deep peroneal, and tibial distribution. Main Mepilex dressing is clean dry and intact. Distal pin site dressing saturated. Orders to nursing were given to change out this dressing prior to discharge Positive pain in the left calf, positive acute DVT per Doppler ultrasound Const alert, oriented x3 and no apparent distress Assessment & Plan Assessment/Plan (1) Status post total left knee replacement: PLAN: 1. S/P left robotic assisted total knee arthroplasty POD #2 2. Continue Pain Medications: Tylenol and tramadol. Patient has significant allergies to other narcotics but she is able to tolerate the tramadol. We did reach out to primary care provider who was giving her tramadol preoperatively. They would like orthopedics to manage medication for the first 6 weeks. Patient is unable to use nonsteroidal anti-inflammatories due to her medical history and chronic kidney disease. Patient was complaining of some thigh pain which most likely secondary to tourniquet. 3. DVT Prophylaxis: Patient was found to have an acute DVT left popliteal vein from Doppler ultrasound on January 04, 2025. Medicine has started patient on Eliquis starter pack in which she will use 10 mg twice daily for 7 days and then continue after that at 5 mg twice daily. I did advise patient that she will need to follow-up with the primary care provider upon discharge for continued management. We will continue with labs while in the transitional care unit. Prior to the surgery patient had no past history of DVT. 4. PT/OT: Continue physical therapy while at the transitional care unit. Weightbearing as tolerated with walker. Continue to progress range of motion and strengthening as tolerated 5. H & H: 10.0/28.4, asymptomatic. Patient has been started on ferrous sulfate and folic acid. Will continue with this over the next 2-3 weeks. Patient will require follow-up with primary care physician upon discharge from the transitional care unit in which PCP can determine continued use and treatment with the postoperative anemia. Preoperatively patient was started on our anemia protocol due to preoperative lab work. 6. Reactive leukocytosis: This has resolved and currently 7.3. She is asymptomatic. 7. Encouraged Incentive Spirometry 8. Patient is aware of postoperative constipation that can occur from 1-3 days postoperatively. Will continue with senna 2 tablets twice daily until first bowel movement. Patient was advised if not having a bowel movement after day 3 she is to contact orthopedics so appropriate change can be made. Patient voiced understanding. 9. Continue postoperative medical treatment per medicine: Case has been discussed with medicine and they are okay for discharge from medicine standpoint. Will need to repeat labs in 3 days and if stable after that once weekly. 10. Disposition: Case has been discussed with medicine and care management team. Patient has obtained pre-CERT for transitional care unit at [facility]. Patient is stable from orthopedic standpoint. It was found postoperatively she had an acute DVT in the left popliteal vein. She has been started on Eliquis starter pack. She will require follow-up with her primary care physician for continued management of the DVT and her preoperative anemia. Case has been discussed with the care management team with regards to this. Patient will continue on all above medications. The tramadol has been controlling her pain. She has difficulty with other narcotics. I recommend getting up and moving frequently upon discharge. She has 2-week follow-up scheduled with [facility] for suture/staple removal and x-rays. Contact orthopedics upon discharge with any concerns or questions. I have reviewed the [place] Automated Rx Reporting System (OARRS) report for this patient for refill pattern and other prescriber involvement as part of the appropriate surveillance for the provision of acute and chronic controlled medications. The report was requested and reviewed on the date of this entry and was considered in the prescribing process. This dictation was created using voice recognition software. Phonetic and/or grammatical errors may exist. (2) Acute DVT (deep venous thrombosis): (3) Iron deficiency anemia:
--- NOTE | 2025-01-05 10:43 | PN.HOSP_ITS ---
Reason for Visit Reason for Visit: Diagnoses Essential (primary) hypertension (01/03/25) Encounter for other preprocedural examination (01/03/25) Presence of left artificial knee joint (01/03/25) Objective Data Objective Data Vital Signs: Vital Signs Temp Pulse Resp BP Pulse Ox O2 Del Method O2 Flow Rate 98.2 F 80 18 149/64 H 98 Room Air 4 01/05/25 08:30 01/05/25 09:57 01/05/25 08:30 01/05/25 08:30 01/05/25 08:30 01/05/25 08:30 01/03/25 11:45 Oxygen Flow Rate (L/min) 4 Oxygen Delivery Method Room Air Weight: 211 lb 13.828 oz Body Mass Index (BMI) 36.3 Intake & Output: Intake and Output for Last 24 Hours 01/03/25 01/04/25 01/05/25 23:59 23:59 23:59 Intake Total 2772 / 2772 50 / 50 1000 / 1000 Balance 2772 / 2772 50 / 50 1000 / 1000 Lab / Micro Data 01/05/25 05:37 01/05/25 05:37 Labs: Laboratory Results - last 24 hr 01/04/25 13:20: Urine Color Straw, Urine Clarity Clear, Urine pH 6.0, Ur Specific [place] 1.010, Urine Protein Negative, Urine Glucose (UA) Normal, Urine Ketones Negative, Urine Occult Blood Negative, Urine Nitrite Negative, Urine Bilirubin Negative, Urine Urobilinogen Normal, Ur Leukocyte Esterase Negative, Urine RBC 0 SEEN, Urine WBC 0 SEEN, Ur Squamous Epith Cells 0 SEEN, Urine Bacteria 0 SEEN, Urine Mucus 0 SEEN, Urine Osmolality 229, Ur Random Microalbumin < 12.0, U Random Total Protein 6.2, Ur Random Sodium 22, Urine Creatinine 36.00, Protein/Creatinin Ratio 172, Urine Potassium 16.3, Urine Chloride < 20 01/04/25 22:12: Hgb 10.0 L, Hct 28.1 L 01/05/25 05:37: WBC 7.3, RBC 3.09 L, Hgb 10.0 L, Hct 28.4 L, MCV 91.9, MCH 32.4 H, MCHC 35.2, RDW Std Deviation 52.0 H, RDW Coeff of [place] 16.3 H, Plt Count 186, MPV 10.1, Immature Gran % (Auto) 0.500, Neut % (Auto) 70.5 H, Lymph % (Auto) 12.3 L, [place] % (Auto) 13.6 H, Eos % (Auto) 2.7, Baso % (Auto) 0.4, Absolute Neuts (auto) 5.2, Absolute Lymphs (auto) 0.90, Nucleated RBC % 0, Sodium 135, Potassium 4.3, Chloride 104, Carbon Dioxide 22.1, Anion Gap 8, BUN 20 H, Creatinine 0.90, Estim Creat Clear Calc 50.48, Est GFR (MDRD) Non-Af 63, B UN/Creatinine Ratio 22.4 H, Glucose 115 H, Calcium 9.1 Micro: Microbiology 12/10/24 08:09 Swab (Method) Nasal Screen MRSA/MSSA - Final Radiography Diagnostic Testing: Radiology Impression Venous Doppler Study 01/03/25 14:57 Interpretation Summary Acute deep vein thrombosis is noted in the left popliteal vein. The remainder of the left lower extremity deep venous system is patent and compressible. Deep veins of the right lower extremity are patent and compressible segmentally. There is no evidence of right lower extremity deep vein thrombosis. Valvular competence appears intact within the proximal deep venous systems bilaterally. The great saphenous veins appear bilaterally patent and compressible segmentally. A non-vascular, hypoechoic structure is noted in te left popliteal space, measuring 2.78 cm x 1.26 cm. This probably represents a popliteal cyst. Clinical correlation is advised. Ordering Physician: Beto Mcintosh Referring Physician: Jamal Darby Performed By: Lexie Palencia RDCS, RVT Physical Exam Narrative Seen and examined. Left surgical dressing was changed yesterday. Dressing is dry. Started on starter pack of apixaban yesterday. Risk and benefit discussed with the patient and her near the bedside. Duration of the treatment will be 3 months Physical exam General: Alert, Oriented x3, Cooperative HEENT: Atraumatic, PERRLA, EOMI, Normocephalic Oral: No Gingival or Mucosal Lesions/ Ulcerations Neck: Supple, No JVD, Negative Carotid Bruits Chest wall/Lungs: Air entry diminished in bilateral lung bases. No crepitation/rhonchi Cardiovascular: Regular rate, Regular Rhythm, Normal S1, Normal S2, No M/G/R Abdomen: Bowel Sounds Present, Soft, Non Tender, Non-Distended : No dysuria. No renal angle tenderness. No suprapubic tenderness. Extremities: No edema, Capillary Refill Less than 3 Seconds Skin: Mild subcutaneous edema, over left knee. Left knee surgical dressing is dry with Musculoskeletal: Mild duration over left calf and thigh muscle. Left knee is mildly swollen Neurological: Cranial nerves II-XII grossly intact, DTR 2+/4. No acute focal neurological deficit. Psych/Mental Status: Normal Affect, Appropriate. Assessment & Plan Assessment/Plan (1) Status post total left knee replacement: (2) HTN (hypertension): PLAN: Plan Patient is an 84-year-old female who presented [facility] on 01/03/2025 for planned left knee replacement. Medicine consulted postoperatively for medical management. 1. Left knee primary osteoarthritis ? Orthopedic surgery primary. S/p left total knee replacement with Dr. Mcintosh on 01/03. 01/04: Left knee surgical dressing has mild bloody stain. Dressing is getting changed. Left knee swollen and mildly tender. Patient also has induration of left calf and thigh. Venous duplex reported acute DVT in left popliteal vein. Remainder of the left lower extremity deep venous system and RLE is patent and compressible. Nonvascular hypoechoic structure in the left popliteal space measuring 2.78 x 1.26 centimeter suggestive of popliteal cyst. Recommends full anticoagulation once bleeding is controlled. Dr. Mcintosh called and left voice message to about left popliteal DVT 01/05 surgical dressing was changed yesterday and is dry. Continue PT and OT. Patient going to TCU. Acute DVT of left popliteal vein: Patient does not have a history of prior DVT/PE or other venous thrombosis. Started on apixaban starter pack yesterday. Discussed with the orthopedic PA. Advised CBC in 3 days and then weekly for 1 to 2 weeks until stable and then monthly. Follow with PCP. Thank she has provoked DVT from left knee arthritis/pain and not enough ambulation. 2. Hypertension: Blood pressure 133/56-103/76. Potassium is 4.8. 01/05 blood pressure slightly elevated than yesterday after recovery from anesthesia and surgery. Lisinopril dose increased to 20 mg daily. Hold antihypertensive medication if SBP less than 130 mmHg ? Mildly hypertensive to the 130s to 140s systolic postoperatively. Toprol-XL 50 mg daily continued, isosorbide mononitrate and lisinopril doses decreased with holding parameters. Hold spironolactone. 3. Bilateral calf cramping. ? Patient reported calf cramping while working with physical therapy this afternoon postoperatively. 01/05: Calf cramping resolved. Has DVT as mentioned above Hyponatremia: Patient sodium is 132. Her previous sodium are normal range from 1 36-1 41 last ferritin 2124. Most likely due to intraoperative fluid loss/dehydration. IV fluid normal saline ordered. Patient also chronically on spironolactone and lisinopril which has potential to decrease sodium. Potassium 4.8. Hold spironolactone. Complete UA and urine electrolytes, microalbumin and osmolality ordered Chronic medical conditions: ? Class II obesity: BMI 36 on admit. Complicates hospital course, care and prognosis. ? Hypothyroidism: Continue home Synthroid. ? Hyperlipidemia: Continue home statin. ? GERD: Continue home PPI. ? Overactive bladder: Continue home tolterodine. ? Chronic dizziness: Continue home meclizine as needed. ? Seasonal allergies: Continue home montelukast and albuterol inhaler as needed. DVT prophylaxis: Baby aspirin twice daily per orthopedics Patient is medically stable to be discharged Charges/Coding Visit Charges Inpatient E&M: 99887 Subs Hosp L2
--- NOTE | 2025-01-05 10:48 | TREXTCAR_ITS ---
Diet Diet Order/Speech Therapy: 01/03/25 12:34 Diet: Regular - General Food consistency:: Regular Liquid Consistency:: Regular/Thin Dietary Modifications:: No Added Salt Type of Dietary Supplement:: Ensure Surgery w/ meals Routine Orders/Code Status Routine Lab Work: CBC (Repeat CBC in 3 days and if stable every 7 days after that) and BMP (Repeat BMP in 3 days and if stable every 7 days after that) Code Status: Full Code DC O2, CPAP, BIPAP needs Home O2 Discharge instructions: No Wound(s) left knee: Wound Type: Surgical Incision Dressing Change: AntiMicrobial (Aquacel AG, etc) (Remove all dressings on January 10, 2025. After dressing removal use ABD to protect incision from MARIE hose with daily change) Therapies Weight Bearing: Weight bearing as tolerated (With walker) Extremity Affected:: Left Lower Physical Therapy: Eval and Treat Occupational Therapy: Eval and Treat Problem/Diagnosis (1) Status post total left knee replacement: Status: Acute Code(s): Z96.652 - Presence of left artificial knee joint Plan: 1. S/P left robotic assisted total knee arthroplasty POD #2 2. Continue Pain Medications: Tylenol and tramadol. Patient has significant allergies to other narcotics but she is able to tolerate the tramadol. We did reach out to primary care provider who was giving her tramadol preoperatively. They would like orthopedics to manage medication for the first 6 weeks. Patient is unable to use nonsteroidal anti-inflammatories due to her medical history and chronic kidney disease. 3. DVT Prophylaxis: Patient was found to have an acute DVT left popliteal vein from Doppler ultrasound on January 04, 2025. Medicine has started patient on Eliquis starter pack in which she will use 10 mg twice daily for 7 days and then continue after that at 5 mg twice daily. I did advise patient that she will need to follow-up with the primary care provider upon discharge for continued management. We will continue with labs while in the transitional care unit. Prior to the surgery patient had no past history of DVT. 4. PT/OT: Continue physical therapy while at the transitional care unit. Weightbearing as tolerated with walker. Continue to progress range of motion and strengthening as tolerated 5. H & H: 10.0/28.4, asymptomatic. Patient has been started on ferrous sulfate and folic acid. Will continue with this over the next 2-3 weeks. Patient will require follow-up with primary care physician upon discharge from the transitional care unit in which PCP can determine continued use and treatment with the postoperative anemia. Preoperatively patient was started on our anemia protocol due to preoperative lab work. 6. Reactive leukocytosis: This has resolved and currently 7.3. She is asymptomatic. 7. Encouraged Incentive Spirometry 8. Patient is aware of postoperative constipation that can occur from 1-3 days postoperatively. Will continue with senna 2 tablets twice daily until first bowel movement. Patient was advised if not having a bowel movement after day 3 she is to contact orthopedics so appropriate change can be made. Patient voiced understanding. 9. Continue postoperative medical treatment per medicine: Case has been discussed with medicine and they are okay for discharge from medicine standpoint. Will need to repeat labs in 3 days and if stable after that once weekly. 10. Disposition: Case has been discussed with medicine and care management team. Patient has obtained pre-CERT for transitional care unit at [facility]. Patient is stable from orthopedic standpoint. It was found postoperatively she had an acute DVT in the left popliteal vein. She has been started on Eliquis starter pack. She will require follow-up with her primary care physician for continued management of the DVT and her preoperative anemia. Case has been discussed with the care management team with regards to this. Patient will continue on all above medications. The tramadol has been controlling her pain. She has difficulty with other narcotics. I recommend getting up and moving frequently upon discharge. She has 2-week follow-up scheduled with [facility] for suture/staple removal and x-rays. Contact orthopedics upon discharge with any concerns or questions. I have reviewed the [place] Automated Rx Reporting System (OARRS) report for this patient for refill pattern and other prescriber involvement as part of the appropriate surveillance for the provision of acute and chronic controlled medications. The report was requested and reviewed on the date of this entry and was considered in the prescribing process. This dictation was created using voice recognition software. Phonetic and/or grammatical errors may exist. (2) Acute DVT (deep venous thrombosis): Status: Acute Code(s): I82.409 - Acute embolism and thrombosis of unspecified deep veins of unspecified lower extremity (3) Iron deficiency anemia: Status: Chronic Code(s): D50.9 - Iron deficiency anemia, unspecified Allergies/Procedures Done in Hospital Allergies amlodipine Allergy (Intermediate, Verified 01/03/25 07:11) Other adhesive Allergy (Verified 01/03/25 07:11) Unknown Iodinated Contrast Media (DYEE) Allergy (Verified 01/03/25 07:11) Angioedema ONLY IV CONTRAST DYE iodine Allergy (Verified 01/03/25 07:11) Unknown nitrofurantoin Allergy (Verified 01/03/25 07:11) Unknown piroxicam Allergy (Verified 01/03/25 07:11) Unknown Sulfa (Sulfonamide Antibiotics) Allergy (Verified 01/03/25 07:11) Unknown hydrocodone Adverse Reaction (Verified 01/03/25 07:11) Vomiting Influenza Virus Vaccines (flu vaccine) Adverse Reaction (Verified 01/03/25 07:11) GUILLIAN BARRE Opioids - Morphine Analogues (narcotics) Adverse Reaction (Verified 01/03/25 07:11) Vomiting oxycodone Adverse Reaction (Verified 01/03/25 07:11) vomiting propoxyphene (From Darvocet-N) Adverse Reaction (Verified 01/03/25 07:11) Vomiting Type of Care/Length of Stay Estimated LOS: Convalescent Care Less Than 30 days Type of Care Needed: Skilled Rehab Potential: Good Prognosis: Good Additional Orders/Day of Discharge Day of Discharge: 01/05/25 Dietary and Speech Recommendations Dietitian Recommendations/Changes: Will change diet to Regular No Added Salt d/t issues w/ edema and pmhx 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 Will continue to follow and monitor for changes in pt nutritional status and make additional rec as indicated. Follow Up Care Please follow up with your Primary Care Physician in: Please follow-up with primary care physician upon discharge from TCU Discharge Plan Admission Admit Date/Time: 01/03/25 07:12 Attending Provider: Beto Mcintosh Primary Care Provider: Jamal Darby Consulting Providers: Sree Robbins Discharge Orders/Prescriptions Prescriptions: New acetaminophen 500 mg Tablet 1,000 mg PO TID 14 Days Qty: 84 0RF Rx Instructions: Do not take more than 3000 mg Tylenol in a 24-hour period. Eliquis 5 mg Tablet 5 mg PO BID Qty: 0 0RF Rx Instructions: Start date January 11, 2025 begin Eliquis 5 mg twice daily due to acute DVT Eliquis 5 mg Tablet 10 mg PO BID Qty: 0 0RF Rx Instructions: Continue starter pack Eliquis 10 mg twice daily for 7 days and will begin Eliquis 5 mg twice daily on January 11, 2025 ferrous sulfate [FeroSul] 325 mg (65 mg iron) Tablet 325 mg PO 1200,1700 21 Days Qty: 0 0RF folic acid 1 mg Tablet 1 mg PO BREAKFAST 21 Days Qty: 0 0RF sennosides-docusate sodium [Stimulant Laxative Plus] 8.6-50 mg Tablet 2 tab PO BID Qty: 0 0RF Rx Instructions: Use as needed for constipation tramadol 50 mg Tablet 50 - 100 mg PO Q6H PRN PRN (Reason: Pain Score 4-10) 7 Days Qty: 42 0RF Continued isosorbide mononitrate 60 mg tablet extended release 24 hr 60 mg PO DAILY spironolactone 25 mg tablet 25 mg PO DAILY atorvastatin 80 mg tablet 80 mg PO QPM lisinopril 20 mg tablet 20 mg PO DAILY tolterodine [Detrol LA] 4 mg capsule,extended release 24hr 4 mg PO DAILY meclizine 25 MG tablet 25 mg PO Q6H PRN (Reason: dizziness) Patient Comments: dizziness nitroglycerin 0.4 MG tablet 0.4 mg sublingual Q5M PRN (Reason: Chest Pain) Patient Comments: chest pain gabapentin 300 MG capsule 300 mg PO TID Patient Comments: pain metoprolol succinate [Toprol XL] 50 MG tablet extended release 24 hr 50 mg PO DAILY levothyroxine 100 MCG tablet 200 mcg PO DAILY pantoprazole 40 mg tablet,delayed release (DR/EC) 40 mg PO DAILY montelukast 10 mg tablet 10 mg PO DAILY guaifenesin 600 mg tablet extended release 12hr 600 mg PO DAILY Patient Comments: [NO ORIGINAL SIG] budesonide-formoterol [Symbicort] 160-4.5 mcg/actuation HFA aerosol inhaler 1 inh INHALATION Q12H Patient Comments: [NO ORIGINAL SIG] albuterol sulfate 0.63 mg/3 mL solution for nebulization 0.63 mg inhalation Q4H PRN (Reason: shortness of breath or wheezing) Discontinued tramadol 50 mg tablet 100 mg PO BID Other Ambulatory Orders: 12 Lead EKG (Routine) Location: None Selected Ordered By: Dr. Beto Mcintosh Referrals / Follow Up: Jamal Darby MD [Primary Care Provider] - (Needs follow-up with primary care physician after discharge from transitional care unit for management of acute DVT and preoperative anemia) Thanh Smith PA-C [Med Staff - Adv Practice Prof] - 01/17/25 10:00 am Disposition Disposition (needs filled in before D/C Order can be placed[facility]
--- NOTE | 2025-01-05 11:05 | PCM.DC ---
Discharge Instructions Diet Discharge Diet: No restrictions DC O2, CPAP, BIPAP needs Home O2 Discharge instructions: No Dressing / Incision Discharge Activity: May Not Drive (While taking narcotics and must be able to walk 100 feet with use of cane) May shower in (days): 1 (Please turn dressing away from water. Okay to get wet as long as dressing is intact to skin.) Ice area for (Minutes): 20 (Every 1-2 hours while awake[address] Please place barrier between the skin and ice pack.) Weight Bearing Status: Weight bearing as tolerated Keep extremity elevated above heart level: Operative Extremity Dressing / Incision Call your doctor if your incision/area has: Continuous Slow Oozing, Sudden Increased Bleeding, Increased Pain/ Swelling, Increased Redness and Foul Smelling Discharge Call your doctor if you observe: Fever of 101 or Higher, Coldness, Increased Pain, Numbness or Tingling, Change in Color, Shortness of breath, Chest pain, Calf discomfort and Uncontrolled pain Remove Dressing in: 4 days (Okay to remove dressing on January 09, 2025) Additional Dressing/Incision Instructions:: Follow [facility] Post-op Instructions. Once postoperative dressing has been removed only use gentle soap and water over the incision. Do not use any ointments, Neosporin, salves, alcohol pads over the incision for 6 weeks postoperatively. Do not submerge underwater for 6 weeks postoperatively. Continue with MARIE hose/elastic stockings for 2 weeks postoperatively. May remove at nighttime but needs to be placed back on the leg during the day. Do NOT use alcohol with narcotic pain medication. Do NOT make important decisions while taking narcotic medication. If you have problems with taking your medication (rash, itching, nausea, etc.) call the office at once. Follow Up Care Test Results: Test results from this visit will be discussed in further detail at your follow-up appointment, if applicable. Discharge Plan Admission Admit Date/Time: 01/03/25 07:12 Attending Provider: Beto Mcintosh Primary Care Provider: Jamal Darby Consulting Providers: Sree Robbins Discharge Orders/Prescriptions Prescriptions: New acetaminophen 500 mg Tablet 1,000 mg PO TID 14 Days Qty: 84 0RF Rx Instructions: Do not take more than 3000 mg Tylenol in a 24-hour period. Eliquis 5 mg Tablet 5 mg PO BID Qty: 0 0RF Rx Instructions: Start date January 11, 2025 begin Eliquis 5 mg twice daily due to acute DVT Eliquis 5 mg Tablet 10 mg PO BID Qty: 0 0RF Rx Instructions: Continue starter pack Eliquis 10 mg twice daily for 7 days and will begin Eliquis 5 mg twice daily on January 11, 2025 ferrous sulfate [FeroSul] 325 mg (65 mg iron) Tablet 325 mg PO 1200,1700 21 Days Qty: 0 0RF folic acid 1 mg Tablet 1 mg PO BREAKFAST 21 Days Qty: 0 0RF sennosides-docusate sodium [Stimulant Laxative Plus] 8.6-50 mg Tablet 2 tab PO BID Qty: 0 0RF Rx Instructions: Use as needed for constipation tramadol 50 mg Tablet 50 - 100 mg PO Q6H PRN PRN (Reason: Pain Score 4-10) 7 Days Qty: 42 0RF Continued isosorbide mononitrate 60 mg tablet extended release 24 hr 60 mg PO DAILY spironolactone 25 mg tablet 25 mg PO DAILY atorvastatin 80 mg tablet 80 mg PO QPM lisinopril 20 mg tablet 20 mg PO DAILY tolterodine [Detrol LA] 4 mg capsule,extended release 24hr 4 mg PO DAILY meclizine 25 MG tablet 25 mg PO Q6H PRN (Reason: dizziness) Patient Comments: dizziness nitroglycerin 0.4 MG tablet 0.4 mg sublingual Q5M PRN (Reason: Chest Pain) Patient Comments: chest pain gabapentin 300 MG capsule 300 mg PO TID Patient Comments: pain metoprolol succinate [Toprol XL] 50 MG tablet extended release 24 hr 50 mg PO DAILY levothyroxine 100 MCG tablet 200 mcg PO DAILY pantoprazole 40 mg tablet,delayed release (DR/EC) 40 mg PO DAILY montelukast 10 mg tablet 10 mg PO DAILY guaifenesin 600 mg tablet extended release 12hr 600 mg PO DAILY Patient Comments: [NO ORIGINAL SIG] budesonide-formoterol [Symbicort] 160-4.5 mcg/actuation HFA aerosol inhaler 1 inh INHALATION Q12H Patient Comments: [NO ORIGINAL SIG] albuterol sulfate 0.63 mg/3 mL solution for nebulization 0.63 mg inhalation Q4H PRN (Reason: shortness of breath or wheezing) Discontinued tramadol 50 mg tablet 100 mg PO BID Other Ambulatory Orders: 12 Lead EKG (Routine) Location: None Selected Ordered By: Dr. Beto Mcintosh Referrals / Follow Up: Jamal Darby MD [Primary Care Provider] - (Needs follow-up with primary care physician after discharge from transitional care unit for management of acute DVT and preoperative anemia) Thanh Smith PA-C [Med Staff - Adv Practice Prof] - 01/17/25 10:00 am Disposition Disposition (needs filled in before D/C Order can be placed[facility]
--- NOTE | 2025-01-05 11:24 | CASEMGMT ---
Social Work Per physician, pt is ready for discharge today. ROSA spoke with [facility] in TCU and pt has been accepted and precert has been obtained. Discharge orders faxed to TCU. ROSA met with pt and pt's and updated on dc plan and both are agreeable. Nursing updated. Disposition: TCU, skilled level of care SHEY Martinez
--- NOTE | 2025-01-05 11:47 | PHA.DC.MR.R ---
Pharmacy [place] Med Reconciliation Pharmacy Service has performed discharge medication reconciliation for this patient. The patient's discharge medication list was reviewed for discrepancies and discrepancies were resolved. Medications at Discharge Home Medications gabapentin 300 mg capsule 300 mg PO TID 08/15/14 meclizine 25 mg tablet 25 mg PO Q6H PRN dizziness 08/15/14 nitroglycerin 0.4 mg sublingual tablet 0.4 mg sublingual Q5M PRN Chest Pain 08/15/14 metoprolol succinate 50 mg tablet,extended release 24 hr (Toprol XL) 50 mg PO DAILY 10/10/16 levothyroxine 100 mcg tablet 200 mcg PO DAILY 04/18/17 atorvastatin 80 mg tablet 80 mg PO QPM 02/04/23 isosorbide mononitrate 60 mg tablet,extended release 24 hr 60 mg PO DAILY 02/04/23 lisinopril 20 mg tablet 20 mg PO DAILY 02/04/23 spironolactone 25 mg tablet 25 mg PO DAILY 02/04/23 tolterodine 4 mg capsule,extended release 24 hr (Detrol LA) 4 mg PO DAILY 02/04/23 albuterol sulfate 0.63 mg/3 mL solution for nebulization 0.63 mg inhalation Q4H PRN shortness of breath or wheezing 12/08/24 budesonide-formoterol HFA 160 mcg-4.5 mcg/actuation aerosol inhaler (Symbicort) 1 inh inhalation Q12H 12/08/24 guaifenesin 600 mg tablet, extended release 12 hr 600 mg PO DAILY 12/08/24 montelukast 10 mg tablet 10 mg PO DAILY 12/08/24 pantoprazole 40 mg tablet,delayed release 40 mg PO DAILY 12/08/24 acetaminophen 500 mg tablet 1,000 mg (2 x 500 mg) PO TID 14 days #84 tabs 01/05/25 apixaban 5 mg tablet (Eliquis) 5 mg PO BID #0 tabs 01/05/25 apixaban 5 mg tablet (Eliquis) 10 mg (2 x 5 mg) PO BID #0 tabs 01/05/25 ferrous sulfate 325 mg (65 mg iron) tablet (FeroSul) 325 mg PO 1200,1700 3 weeks #0 tabs 01/05/25 folic acid 1 mg tablet 1 mg PO BREAKFAST 3 weeks #0 tabs 01/05/25 sennosides 8.6 mg-docusate sodium 50 mg tablet (Stimulant Laxative Plus) 2 tab PO BID #0 tabs 01/05/25 tramadol 50 mg tablet 50 - 100 mg (1 - 2 x 50 mg) PO Q6H PRN PRN Pain Score 4-10 7 days #42 tabs 01/05/25
--- NOTE | 2025-01-05 16:25 | NURSING ---
All documentation by instructor of nursing Svitlana Gilliland reviewed by nursing educator Elva SEPULVEDAN, RN.
== END 2025-01-05 13:28 | disposition skilled nursing facility (03) ==
LOC: ACINP 12:03 → SDC 12:03 → MS3 12:03
PROVIDERS: Anesthesiology; Internal Medicine; Admitting Provider Specialist; PCP Family Medicine; Referring Provider Specialist; Visit Provider Specialist
PROC: 0SRD0JZ Replacement of Left Knee Joint with Synthetic Substitute, Open Approach (ICD-10-PCS; CPT 27447; principal; 2025-01-03 08:15)
DX: M17.12 Unilateral primary osteoarthritis, left knee (principal); M06.9 Rheumatoid arthritis, unspecified; I13.0 Hypertensive heart and chronic kidney disease with heart failure and stage 1 through stage 4 chronic kidney disease, or unspecified chronic kidney disease; I50.9 Heart failure, unspecified; I82.432 Acute embolism and thrombosis of left popliteal vein; N18.30 Chronic kidney disease, stage 3 unspecified; I25.10 Atherosclerotic heart disease of native coronary artery without angina pectoris; H91.90 Unspecified hearing loss, unspecified ear; N32.81 Overactive bladder; E66.812 Obesity, class 2; E87.1 Hypo-osmolality and hyponatremia; K21.9 Gastro-esophageal reflux disease without esophagitis; Z79.890 Hormone replacement therapy; L40.9 Psoriasis, unspecified; E03.9 Hypothyroidism, unspecified; E78.00 Pure hypercholesterolemia, unspecified; Z68.36 Body mass index [BMI] 36.0-36.9, adult; Z79.899 Other long term (current) drug therapy; H81.10 Benign paroxysmal vertigo, unspecified ear; G47.33 Obstructive sleep apnea (adult) (pediatric)
CPT/HCPCS: 27447; S2900; 01402; 36415; 73560; 80048; 81001; 82040; 82043; 82436; 82570; 82962; 83735; 83935; 84133; 84156; 84300; 84443; 85014; 85018; 85025; 85027; 87081; 88305; 88311; 93005; 93970; 94640; 94668; 96361; 96365; 96366; 97110; 97116; 97162; 97166; 97530; 97535; 97802; 99221; 99252; C1776; A4216; G0378; G0463; J3475

== ENCOUNTER 2025-01-05 13:35 | Inpatient (IN) | payer MEDICARE, SELFPAY ==
[2025-01-05 14:20] VITALS: BP 157/69; PULSE 83; RESP 16; TEMP 36.8; O2SAT 97; BMI 36.7
[2025-01-05 15:00] VITALS: PULSE 65; RESP 18; O2SAT 96
[2025-01-05] MEDS: Ferrous Sulfate 325 MG Tablet PO (16:57)
--- NOTE | 2025-01-05 19:25 | CASEMGMT ---
Social Work Met with patient to complete initial assessment, patients daughter Irene and were also present. Introduced self and role at the hospital. Verfied contacts. Patient has order for DNRCCA with intubation. Patients goal is to return home with . SW will continue to follow for DC planning. Renetta Landaverde, LEAD TRAINER, ACQUISITION MARKETING COORDINATOR
[2025-01-05] MEDS: traMADol 50 MG Tablet PO (19:51)
--- NOTE | 2025-01-05 20:59 | HP.PCM_ITS ---
[facility] - General General Date of Admission: 01/05/25 Date of Service: 01/05/25 Chief Complaint: Here for rehabilitation. [facility] Narrative BETSY RIVAS, is a 84 Female who presents with followin01/03/2025 Admit [facility]. 01/03/2025 Dr. Mcintosh performed left robotic assisted minimally invasive total knee replacement. 01/03/2025 Pain control, DVT prophylaxis. PT/OT/CM. Resume isosorbide, Lisinopril, Aldactone. Doppler ultrasound bilateral lower extremity to rule out dvt. 01/04/2025 Uncomfortable, severe left calf pain. Dysphagia. Aspirin 81mg bid x 4 weeks dvt prophylaxis. Tylenol, Tramadol for pain. Bowel regimen. Patient requested TCU. 01/04/2025 Doppler ultrasound positive left lower extremity dvt. PT/OT TCU. 01/05/2025 Admit to TCU with debility, here for rehabilitation, strengthening, prior to discharge home with . [facility] Medical History (Updated 01/05/25 @ 21:[address] Augusto Tinoco MD) Wears hearing aid Loss of hearing Wears glasses Wears dentures Skin cancer of lip Cancer Thyroid disease Ambulates with cane Arthritis High cholesterol Syncope History of hiatal hernia Non-smoker CPAP (continuous positive airway pressure) dependence Sleep apnea Shortness of breath on exertion Chronic cough History of stress test History of echocardiogram Cardiology follow-up encounter Implantable loop recorder present STEPHANIE (obstructive sleep apnea) Orthostatic hypotension CKD (chronic kidney disease) Hyperthyroidism Esophageal dysphagia Home Medications ?Medication ?Instructions ?Recorded ?Last Taken ?Type gabapentin 300 mg capsule 300 mg PO TID nerve pain 01/03/25 History meclizine 25 mg tablet 25 mg PO Q6H PRN dizziness 1 08/15/14 History nitroglycerin 0.4 mg sublingual 0.4 mg sublingual Q5M PRN Chest 08/15/14 Unknown History tablet Pain metoprolol succinate 50 mg 50 mg PO DAILY heart health 10/10/16 01/03/25 History tablet,extended release 24 hr (Toprol XL) levothyroxine 100 mcg tablet 200 mcg PO DAILY thyroid 04/18/17 01/03/25 History atorvastatin 80 mg tablet 80 mg PO QPM cholesterol 01/02/25 History isosorbide mononitrate 60 mg 60 mg PO DAILY heart heal th 02/04/23 01/03/25 History tablet,extended release 24 hr lisinopril 20 mg tablet 20 mg PO DAILY heart health 02/04/23 01/02/25 History spironolactone 25 mg tablet 25 mg PO DAILY heart healt h 02/04/23 01/02/25 History tolterodine 4 mg capsule,extended 4 mg PO DAILY overac tive bladder 02/04/23 01/02/25 History release 24 hr (Detrol LA) albuterol sulfate 0.63 mg/3 mL 0.63 mg inhalation Q4H PRN 12/08/24 Unknown History solution for nebulization shortness of breath or wheez ing budesonide-formoterol HFA 160 1 inh inhalation Q12H br eathing 12/08/24 01/02/25 History mcg-4.5 mcg/actuation aerosol inhaler (Symbicort) guaifenesin 600 mg tablet, 600 mg PO DAILY congestion 12/08/24 01/02/25 History extended release 12 hr montelukast 10 mg tablet 10 mg PO DAILY allergies 01/02/25 History pantoprazole 40 mg tablet,delayed 40 mg PO DAILY [facility] 12/08/24 01/03/25 History release acetaminophen 500 mg tablet 1,000 mg (2 x 500 mg) PO T ID pain 01/05/25 Unknown Rx 14 days #84 tabs apixaban 5 mg tablet (Eliquis) 5 mg PO BID DVT #0 tabs 01/05/25 Unknown Rx apixaban 5 mg tablet (Eliquis) 10 mg (2 x 5 mg) PO BID DVT #0 tabs 01/05/25 Unknown Rx ferrous sulfate 325 mg (65 mg 325 mg PO 1200,1700 supp lement 3 01/05/25 Unknown Rx iron) tablet (FeroSul) weeks #0 tabs folic acid 1 mg tablet 1 mg PO BREAKFAST supplement 3 01/05/25 Unknown Rx weeks #0 tabs sennosides 8.6 mg-docusate sodium 2 tab PO BID constip ation #0 tabs 01/05/25 Unknown Rx 50 mg tablet (Stimulant Laxative Plus) tramadol 50 mg tablet 50 - 100 mg (1 - 2 x 50 mg) PO Q6H 01/05/25 Unknown Rx PRN PRN Pain Score 4-10 7 days #42 tabs Allergy/AdvReac Type Severity Reaction Status Date / Time amlodipine Allergy Intermediate Other Verified 01/03/25 07:11 adhesive Allergy Unknown Verified 01/03/25 07:11 Iodinated Contrast Media Allergy Angioedema Verified 01/03/25 07:11 (DYEE) iodine Allergy Unknown Verified 01/03/25 07:11 nitrofurantoin Allergy Unknown Verified 01/03/25 07:11 piroxicam Allergy Unknown Verified 01/03/25 07:11 Sulfa (Sulfonamide Allergy Unknown Verified 01/03/25 07:11 Antibiotics) hydrocodone AdvReac Vomiting Verified 01/03/25 07:11 Influenza Virus Vaccines AdvReac GUILLIAN Verified 01/03/25 07:11 (flu vaccine) BARRE Opioids - Morphine Analogues AdvReac Vomiting Verified 01/03/25 07:11 (narcotics) oxycodone AdvReac vomiting Verified 01/03/25 07:11 propoxyphene (From AdvReac Vomiting Verified 01/03/25 07:11 Darvocet-N) Family History Mother Myocardial infarction Leukemia Father Brain cancer Surgical History (Updated 01/05/25 @ 21:[address] Augusto Tinoco MD) History of total left knee replacement History of colonoscopy History of esophagogastroduodenoscopy (EGD) History of cardiac catheterization History of cataract extraction with lens replacement History of lymph node excision History of arthroscopy of right knee H/O vaginal hysterectomy History of bladder surgery Hx of tonsillectomy H/O ventral hernia repair History of bilateral carpal tunnel release H/O hernia repair Hx of cholecystectomy History of back surgery History of total knee replacement History of abdominal surgery Social History (Updated 01/05/25 @ 21:[address] Augusto Tinoco MD) household members: spouse Smoking Status: Never smoker alcohol intake: never substance use type: does not use ROS Constitutional Constitutional: Reports weakness; Denies chills, fever(s) or weight gain ENT HEENT: Denies headache(s), nasal congestion or nasal discharge Cardiovascular Cardiovascular: Denies chest pain or palpitations Respiratory/Chest Respiratory/Chest: Denies cough, excessive phlegm production or shortness of breath with exertion Gastrointestinal Gastrointestinal: Denies abdominal pain, nausea or vomiting Genitourinary Genitourinary: Denies dysuria Musculoskeletal Musculoskeletal: Denies joint pain or joint swelling Integumentary Integumentary: Denies rash or wounds Neurologic Neurologic: Denies focal weakness, numbness or tingling Psychiatric Psychiatric: Denies anxiety, auditory hallucinations, depression, homicidal ideation or suicidal ideation Vital Signs Vital Signs Vital Signs: 01/05/25 14:20 01/05/25 15:00 Temperature 98.3 F Temperature Source Temporal Pulse Rate 83 65 Pulse Rhythm Irregular Pulse Strength Normal (2+) Respiratory Rate 16 18 Respiratory Effort Normal Non-Labored Respiratory Depth Normal Respiratory Pattern Normal Blood Pressure 157/69 H Blood Pressure Mean 98 Blood Pressure Source Monitor Blood Pressure Position Supine Blood Pressure Location Right Arm Pulse Ox 97 96 Oxygen Delivery Method Room Air Room Air Weight Weight: 97.125 kg Body Mass Index (BMI) 36.7 Physical Exam Const alert General Appearance: cooperative HEENT normocephalic Eyes PERRL and EOMs intact bilaterally Neck supple, no JVD and no carotid bruits Resp normal respiratory effort, normal air movement and clear to auscultation bilater ally Cardio regular rate and regular rhythm GI normal to inspection, nondistended, normoactive bowel sounds, non-tender and non-distended Extremity normal capillary refill General Extremity: Negative for edema Skin no rashes or lesions noted General Skin Exam: no breakdown Psych affect normal Appearance: appropriate Assessment & Plan Assessment/Plan (1) Debility: (2) Status post total left knee replacement: (3) Acute deep vein thrombosis (DVT) of left lower extremity: (4) Hypothyroidism: (5) Sleep apnea: (6) GERD (gastroesophageal reflux disease): (7) Essential (primary) hypertension: (8) Hyperlipidemia: (9) Chronic kidney disease, stage 3a: (10) Coronary artery disease: (11) Anxiety: (12) Rheumatoid arthritis: PLAN: Plan 84 year old female with below past medical history underwent left total knee replacement 01/03/[address] Mcintosh, postoperative course complicated by left lower extremity dvt, admitted to TCU with debility, here for rehabilitation, strengthening, prior to discharge home with . * Debility - PT/OT. * Pain - Tylenol 1000mg tid, Tramadol 50mg 0600, 1800, Q12 prn. * Bowel - senna/colace 2 tablets bid, Magnesium citrate 300mL daily prn. * Adult immunization - Administer pneumonia vaccine, covid vaccine, flu vaccine as appropriate. * DVT prophylaxis - Eliquis. * Asthma - Fluticasone/Salmeterol 232-14 1 puff q12, Albuterol 2.5mg q4h prn, Singulair 10mg daily. * Acute left lower extremity dvt - Eliquis 10mg bid thru 01/10/2025, then 5mg bid. * Hyperlipidemia - Atorvastatin 80mg qhs. * Iron deficiency anemia - Ferrous sulfate 325mg bid. * Folate deficiency - Folic acid 1mg daily. * Neuropathic pain - Gabapentin 300mg tid. * Congestion - Mucinex 600mg daily. * Coronary artery disease - Metoprolol succinate 50mg daily, Lisinopril 20mg daily, Isosorbide MN 60mg daily, Aldactone 25mg daily, NTG 0.4mg sl q5m prn. * Hypothyroidism - Levothyroxine 200mcg daily. * BPPV - Meclizine 25mg q6 prn. * GERD - Pantoprazole 40mg daily. * Overactive bladder - Tolterodine 4mg daily.
[2025-01-05] MEDS: Fluticasone/Salmeterol 232-14 Inhaler 1 PUFF INHALATION (21:39)
[2025-01-05] MEDS: Gabapentin 300 MG Capsule PO (21:39)
[2025-01-05] MEDS: APIXABAN 5 MG TABLET 10 MG PO (21:39)
[2025-01-05] MEDS: Atorvastatin Calcium 80 MG Tablet PO (21:39)
[2025-01-05] MEDS: Senna/Docusate Sodium 1 Tablet 2 TABLET PO (21:39)
[2025-01-05] MEDS: Acetaminophen 500 MG Tablet 1000 MG PO (21:39)
[2025-01-06] MEDS: Acetaminophen 500 MG Tablet 1000 MG PO ×3 (06:05→21:36)
[2025-01-06] MEDS: Gabapentin 300 MG Capsule PO ×3 (06:06→21:35)
[2025-01-06] MEDS: Levothyroxine 100 MCG Tablet 200 MCG PO (06:06)
[2025-01-06] MEDS: traMADol 50 MG Tablet PO ×3 (06:06→17:46)
[2025-01-06 07:56] LABS: Absolute Lymphocyte Count 1.31 X10^3/uL (0.83-4.51); Absolute Neutrophil Count 4.4 X10^3/uL (2.0-7.7); Basophil# 0.02 X10^3/uL; Basophil% 0.3 % (0-1); Eosinophil# 0.31 X10^3/uL; Eosinophils% 4.5 % (0-5); Hematocrit 28.6 % (37-47); Hemoglobin 10.4 g/dL (12.0-15.0); Lymphocyte # 1.31 X10^3/ul (0.83-4.51); Lymphocyte % 18.8 % (19-41); Mean Corp Hgb Conc 36.4 g/dL (32-36); Mean Corpuscular Hgb 34.3 pg (27.0-32.0); Mean Corpuscular Volume 94.4 fL (81-99); Mean Platelet Vol. 10.7 fl (6.2-12.0); Monocyte% 12.9 % (0-10); NRBC Flagged by Analyzer 0.3 % (0-5); Neutrophil # 4.37 X10^3/uL (2.7-7.7); Neutrophil % 62.8 % (47-70); Platelet Count 218 K/mm3 (150-450); RBC Distribution Width CV 17.5 % (11.6-14.6); RBC Distribution Width SD 54.8 fl (35.1-43.9); Red Blood Count 3.03 M/mm3 (4.2-5.4)
[2025-01-06 08:28] LABS: Anion Gap 10 (5-15); BUN 17 mg/dL (4-19); BUN/Creat Ratio 19.5 RATIO (10-20); Carbon Dioxide 23.3 mmol/L (21.0-32.0); Chloride 101 mmol/L (98-108); Creatinine, Serum 0.85 mg/dL (0.70-1.20); EST Glomerular Filtration Rate 66 (>60); Estimated Creatinine Clearance 53.75 ml/min (50-250); Glucose 104 mg/dL (70-99); Potassium 4.5 mmol/L (3.3-5.1); Sodium Level 134 mmol/L (133-145)
[2025-01-06 08:30] VITALS: BP 137/63; PULSE 67; RESP 17; TEMP 36.5; O2SAT 98
[2025-01-06] MEDS: Ferrous Sulfate 325 MG Tablet PO ×2 (08:35→17:46)
[2025-01-06] MEDS: APIXABAN 5 MG TABLET 10 MG PO ×2 (08:35→21:35)
[2025-01-06 08:36] VITALS: PULSE 67
[2025-01-06] MEDS: Senna/Docusate Sodium 1 Tablet 2 TABLET PO (08:36)
[2025-01-06] MEDS: Pantoprazole Sodium 40 MG Tablet PO (08:36)
[2025-01-06] MEDS: Lisinopril 20 MG Tablet PO (08:36)
[2025-01-06] MEDS: Metoprolol(XL)Succ 50 MG Tablet PO (08:36)
[2025-01-06] MEDS: Isosorbide Mononitrate 60 MG Tablet PO (08:36)
[2025-01-06] MEDS: Folic Acid 1 MG Tablet PO (08:36)
[2025-01-06] MEDS: guaiFENesin 600 MG Tablet PO (08:36)
[2025-01-06] MEDS: Spironolactone 25 MG Tablet PO (08:36)
[2025-01-06] MEDS: Tolterodine Tartrate 4 MG CAP.SA PO (08:36)
[2025-01-06] MEDS: Fluticasone/Salmeterol 232-14 Inhaler 1 PUFF INHALATION ×2 (08:37→21:35)
[2025-01-06] MEDS: Montelukast 10 MG Tablet PO (08:37)
[2025-01-06] MEDS: Tuberculin,Purif.prot.deriv. 50 TU/ML Vial 0.1 ML ID (08:48)
--- NOTE | 2025-01-06 12:07 | PHA.CONS_ITS ---
TCU RX Drug Regimen Review Subjective/Objective Subjective/Objective Subjective: 84 YOF admitted to TCU on 01/05 s/p hospitalization at [facility] post left knee replacement. Hospitalization complicated by a LLE DVT. Admitted to TCU for rehabilitation and strengthening prior to discharge home where she resides with her . Objective: Allergies amlodipine Allergy (Intermediate, Verified 01/03/25 07:11) Other adhesive Allergy (Verified 01/03/25 07:11) Unknown Iodinated Contrast Media (DYEE) Allergy (Verified 01/03/25 07:11) Angioedema ONLY IV CONTRAST DYE iodine Allergy (Verified 01/03/25 07:11) Unknown nitrofurantoin Allergy (Verified 01/03/25 07:11) Unknown piroxicam Allergy (Verified 01/03/25 07:11) Unknown Sulfa (Sulfonamide Antibiotics) Allergy (Verified 01/03/25 07:11) Unknown hydrocodone Adverse Reaction (Verified 01/03/25 07:11) Vomiting Influenza Virus Vaccines (flu vaccine) Adverse Reaction (Verified 01/03/25 07:11) GUILLIAN BARRE Opioids - Morphine Analogues (narcotics) Adverse Reaction (Verified 01/03/25 07:11) Vomiting oxycodone Adverse Reaction (Verified 01/03/25 07:11) vomiting propoxyphene (From Darvocet-N) Adverse Reaction (Verified 01/03/25 07:11) Vomiting Current Medications Generic Name Dose Route Start Last Admin Trade Name Freq PRN Reason Stop Dose Admin Acetaminophen 1,000 mg 01/05/25 22:00 01/06/25 06:05 Acetaminophen 500 Mg Tablet PO 1,000 mg TID AUGUSTUS Administration Albuterol Sulfate 2.5 mg 01/05/25 15:25 Albuterol 2.5 Mg/3 Ml Vial.Neb. INHALATION Q4H PRN shortness of breath or wheezing Apixaban 5 mg 01/11/25 10:00 Apixaban 5 Mg Tablet PO BID AUGUSTUS Apixaban 10 mg 01/05/25 22:00 01/06/25 08:35 Apixaban 5 Mg Tablet PO 01/10/25 23:55 10 mg BID AUGUSTUS Administration Atorvastatin Calcium 80 mg 01/05/25 21:00 01/05/25 21:39 Atorvastatin Calcium 80 Mg Tablet PO 80 mg QPM AUGUSTUS Administration Ferrous Sulfate 325 mg 01/05/25 17:00 01/06/25 08:35 Ferrous Sulfate 325 Mg Tablet PO 325 mg 1200,1700 AUGUSTUS Administration Folic Acid 1 mg 01/06/25 08:00 01/06/25 08:36 Folic Acid 1 Mg Tablet PO 1 mg BREAKFAST AUGUSTUS Administration Gabapentin 300 mg 01/05/25 22:00 01/06/25 06:06 Gabapentin 300 Mg Capsule PO 300 mg TID AUGUSTUS Administration Guaifenesin 600 mg 01/06/25 10:00 01/06/25 08:36 Guaifenesin 600 Mg Tablet PO 600 mg DAILY AUGUSTUS Administration Isosorbide Mononitrate 60 mg 01/06/25 10:00 01/06/25 08:36 Isosorbide Mononitrate 60 Mg Tablet PO 60 mg DAILY [facility] Administration Protocol Levothyroxine Sodium 200 mcg 01/06/25 06:00 01/06/25 06:06 Levothyroxine 100 Mcg Tablet PO 200 mcg DAILY@0600 [facility] Administration Lisinopril 20 mg 01/06/25 10:00 01/06/25 08:36 Lisinopril 20 Mg Tablet PO 20 mg DAILY [facility] Administration Protocol Magnesium Citrate 300 ml 01/05/25 21:08 Magnesium Citrate 300 Ml PO DAILY PRN PRN Constipation Meclizine HCl 25 mg 01/05/25 14:12 Meclizine Hcl 25 Mg Tablet PO Q6H PRN dizziness Metoprolol Succinate 50 mg 01/06/25 10:00 01/06/25 08:36 Metoprolol(Xl)Succ 50 Mg Tablet PO 50 mg DAILY [facility] Administration Protocol Montelukast Sodium 10 mg 01/06/25 10:00 01/06/25 08:37 Montelukast 10 Mg Tablet PO 10 mg DAILY [facility] Administration Nitroglycerin 0.4 mg 01/05/25 14:12 Nitroglycerin (Inpatient Use) 0.4 Mg Tab.Subl SL Q5M PRN Chest Pain Pantoprazole Sodium 40 mg 01/06/25 10:00 01/06/25 08:36 Pantoprazole Sodium 40 Mg Tablet PO 40 mg DAILY [facility]US Administration Fluticasone/Salmeterol 1 puff 01/05/25 22:00 01/06/25 08:37 Fluticasone/Salmeterol 232-14 Inhaler INHALATION 1 puff Q12 AUGUSTUS Administration Senna/Docusate Sodium 2 tablet 01/05/25 22:00 01/06/25 08:36 Senna/Docusate Sodium 1 Tablet PO 2 tablet BID AUGUSTUS Administration Sodium Chloride 10 - 40 ml 01/05/25 14:31 0.9% Saline Lock 10 Ml Syringe IV UD PRN SALINE FLUSH Spironolactone 25 mg 01/06/25 08:00 01/06/25 08:36 Spironolactone 25 Mg Tablet PO 25 mg DAILYCM AUGUSTUS Administration Protocol Tolterodine Tartrate 4 mg 01/06/25 10:00 01/06/25 08:36 Tolterodine Tartrate 4 Mg Cap.Sa PO 4 mg DAILY [facility]US Administration Tramadol HCl 50 mg 01/06/25 06:00 01/06/25 06:06 Tramadol 50 Mg Tablet PO 50 mg 0600,1800 AUGUSTUS Administration Tramadol HCl 50 mg 01/06/25 07:45 01/06/25 11:50 Tramadol 50 Mg Tablet PO 50 mg Q6H PRN Administration Pain Score 1-10 or Pre PT/OT Tuberculin PPD 0.1 ml 01/13/25 10:00 Tuberculin,Purif.Prot.Deriv. 50 Tu/Ml Vial ID 01/13/25 10:01 X1 ONE Problem List Chronic kidney disease, stage 3a (Chronic) Essential (primary) hypertension (Acute) Sleep apnea (Acute) Acute deep vein thrombosis (DVT) of left lower extremity (Acute) Debility (Acute) Status post total left knee replacement (Acute) Rheumatoid arthritis (Chronic) Hyperlipidemia (Chronic) GERD (gastroesophageal reflux disease) (Chronic) Hypothyroidism (Chronic) Anxiety (Chronic) Coronary artery disease (Chronic) Vital Signs Temp Pulse Resp BP Pulse Ox O2 Del Method O2 Flow Rate 97.7 F L 67 17 137/63 H 98 Room Air 2 01/06/25 08:30 01/06/25 08:36 01/06/25 08:30 01/06/25 08:30 01/06/25 08:30 01/06/25 08:30 01/06/25 10:12 Oxygen Flow Rate (L/min) 2 Oxygen Delivery Method Room Air Weight: 97.125 kg Body Mass Index (BMI) 36.7 Sodium 134 mmol/L (133-145) 01/06/25 07:11 Potassium 4.5 mmol/L (3.3-5.1) 01/06/25 07:11 Chloride 101 mmol/L (98-108) 01/06/25 07:11 Carbon Dioxide 23.3 mmol/L (21.0-32.0) 01/06/25 07:11 Anion Gap 10 (5-15) 01/06/25 07:11 BUN 17 mg/dL (4-19) 01/06/25 07:11 Creatinine 0.85 mg/dL (0.70-1.20) 01/06/25 07:11 Est GFR (MDRD) Non-Af 66 (>60) 01/06/25 07:11 BUN/Creatinine Ratio 19.5 RATIO (10-20) 01/06/25 07:11 Glucose 104 mg/dL (70-99) H 01/06/25 07:11 Assessment/Plan: 1. Pain: Tylenol 1000mg PO TID, Tramadol 50mg PO 0600/1800 and 50mg Q6h PRN Pain 4-10. Please continue to monitor for PRN medication usage, oversedation with tramadol use, renal function (CrCl 53 ml/min on 01/06). - The patient has gotten 1 dose of PRN Tramadol since admission for knee pain rated 7/10. 2. LLE DVT: Eliquis 10mg PO BID thru 01/10 then 5mg PO BID thereafter. Please continue to monitor for s/s recurrent clot, s/s bleeding/bruising, H/H (hgb 10.4, hct 28.6 on 01/06). 3. CAD: Lipitor 80mg PO QHS, Imdur 60mg PO Daily, Lisinopril 20mg PO daily, Toprol XL 50mg PO daily, Aldactone 25mg PO Daily, Nitrostat PRN. Please continue to monitor lipid panel annually (none on file), BP (last 137/63), pulse (last 67 BPM), K (last 4.5 on 01/06), CrCl (last 53 mL/min on 01/06). 4. Asthma: Airduo 1 puff Q12, Singulair 10mg PO daily, Albuterol inhalation Q4h PRN. Please continue to monitor heart rate (last 67), s/s thrush, PRN medication usage. 5. BPPV: Meclizine 25mg PO Q6h PRN. Please continue to monitor for drowsiness, falls, PRN medication usage. 6. GERD: Protonix 40mg PO Daily. Please continue to monitor for abdominal discomfort, headache. Please also encourage non-pharmacologic treatments to help minimize GERD exacerbations. 7. Hypothyroid: Synthroid 200mcg PO Daily. Please continue to monitor for S/S hyper/hypothyroidism, TSH levels (last 1.12 on 12/10/24). 8. OAB: Detrol 4mg PO Daily. Please continue to monitor for urinary incontinence. This is a BEER's criteria medication that can cause adverse ELECTRIC SCREW DRIVER OPERATOR effects in patients >65 years of age. Please monitor closely and evaluate risk v. benefit of continued use. 9. Neuropathic Pain: Gabapentin 300mg PO TID. Please continue to monitor renal function, oversedation. This is A BEER's criteria medication which can cause increased risk of falls and fractures in patients >65 years of age. Please evaluate risk vs benefit of prolonged use. 10. Congestion: Mucinex 600mg PO Daily. Please also encourage patient to remain hydrated to help with congestion also. 11. General Wellness: Ferrous sulfate 325mg PO Daily, Folic acid 1mg PO Daily. 12. Bowel: Senna/Docusate 2 tab PO BID, Magnesium Citrate 300mL PO Daily PRN. Please continue to monitor for increased/decreased constipation/diarrhea. - The patient had a documented bowel movement on 01/05/25. Assessment/Plan for indications treated with psychotropic medications: -The patient is not currently on any psychotropic medications at time of medication list review. Medical chart and medication regimen reviewed. The following medication irregularities or issues were identified: 1. The patient is on Lipitor at present. There is no lipid panel on file. Please consider obtaining a lipid panel if clinically indicated, thank you. Date Date of Note: 01/06/25
--- NOTE | 2025-01-06 15:13 | CHAPLAIN ---
Type of Pastoral Visit _x__ Initial Visit ___ Follow-up Visit ___ On-call Visit ___ General Patient Visit ___ Spiritual Assessment ___ Family Conference ___ Bereavement ___ Rapid Response ___ Code Blue ___ Other (describe below) Pastoral Care Referral From _x__ Patient ___ Family ___ Nurse ___ Physician ___ It Desktop Support Specialist ___ Straddle Bug Driver ___ Other (describe below) Sacrament/Intervention _x__ Active listening ___ Anointing ___ Roman Catholic ___ Bereavement ___ Communion _x__ Polly exploration ___ _x__ Life review _x__ Prayer ___ Reconciliation ___ Sacrament of Sick _x__ Supportive presence ___ Wedding ___ Other (describe below) Pastoral Comments patient is welcoming and starts out by admitting that she has a lot of hard work ahead of her for full recovery; pt does acknowledge good family support that is in the area, good worship connection, and positive life experiences; pt says that a goal for near future is to move closer to a daughter in the next county; pt welcomes time to talk about life and for a prayer
[2025-01-06] MEDS: Magnesium Citrate 300 ML PO (19:26)
--- NOTE | 2025-01-06 19:28 | NURSING ---
pt refusing ensure, feels its upsetting her stomach. daughter feels pt eats plenty at meals
[2025-01-06 20:58] VITALS: BP 130/67; PULSE 75; RESP 16; TEMP 37.1; O2SAT 96
[2025-01-06 21:01] VITALS: O2SAT 96
[2025-01-06] MEDS: Atorvastatin Calcium 80 MG Tablet PO (21:36)
[2025-01-07] MEDS: Acetaminophen 500 MG Tablet 1000 MG PO ×3 (05:56→20:41)
[2025-01-07] MEDS: Gabapentin 300 MG Capsule PO ×3 (05:56→20:40)
[2025-01-07] MEDS: traMADol 50 MG Tablet PO ×2 (05:56→17:27)
[2025-01-07] MEDS: Levothyroxine 100 MCG Tablet 200 MCG PO (05:57)
[2025-01-07 08:03] VITALS: BP 171/92; PULSE 71; RESP 18; TEMP 36.6; O2SAT 97
[2025-01-07] MEDS: APIXABAN 5 MG TABLET 10 MG PO ×2 (08:06→20:40)
[2025-01-07] MEDS: Spironolactone 25 MG Tablet PO (08:06)
[2025-01-07] MEDS: Tolterodine Tartrate 4 MG CAP.SA PO (08:06)
[2025-01-07] MEDS: Folic Acid 1 MG Tablet PO (08:06)
[2025-01-07] MEDS: Fluticasone/Salmeterol 232-14 Inhaler 1 PUFF INHALATION ×2 (08:07→20:40)
[2025-01-07] MEDS: Isosorbide Mononitrate 60 MG Tablet PO (08:07)
[2025-01-07] MEDS: guaiFENesin 600 MG Tablet PO (08:07)
[2025-01-07 08:08] VITALS: PULSE 71
[2025-01-07] MEDS: Metoprolol(XL)Succ 50 MG Tablet PO (08:08)
[2025-01-07] MEDS: Lisinopril 20 MG Tablet PO (08:08)
[2025-01-07] MEDS: Senna/Docusate Sodium 1 Tablet 2 TABLET PO (08:08)
[2025-01-07] MEDS: Pantoprazole Sodium 40 MG Tablet PO (08:08)
[2025-01-07] MEDS: Montelukast 10 MG Tablet PO (08:08)
--- NOTE | 2025-01-07 10:48 | PCM.PN.DRR ---
TCU RX Drug Regimen Review Subjective/Objective Subjective/Objective Subjective: [] Objective: Allergies amlodipine Allergy (Intermediate, Verified 01/03/25 07:11) Other adhesive Allergy (Verified 01/03/25 07:11) Unknown Iodinated Contrast Media (DYEE) Allergy (Verified 01/03/25 07:11) Angioedema ONLY IV CONTRAST DYE iodine Allergy (Verified 01/03/25 07:11) Unknown nitrofurantoin Allergy (Verified 01/03/25 07:11) Unknown piroxicam Allergy (Verified 01/03/25 07:11) Unknown Sulfa (Sulfonamide Antibiotics) Allergy (Verified 01/03/25 07:11) Unknown hydrocodone Adverse Reaction (Verified 01/03/25 07:11) Vomiting Influenza Virus Vaccines (flu vaccine) Adverse Reaction (Verified 01/03/25 07:11) GUILLIAN BARRE Opioids - Morphine Analogues (narcotics) Adverse Reaction (Verified 01/03/25 07:11) Vomiting oxycodone Adverse Reaction (Verified 01/03/25 07:11) vomiting propoxyphene (From Darvocet-N) Adverse Reaction (Verified 01/03/25 07:11) Vomiting Current Medications Generic Name Dose Route Start Last Admin Trade Name Freq PRN Reason Stop Dose Admin Acetaminophen 1,000 mg 01/05/25 22:00 01/07/25 05:56 Acetaminophen 500 Mg Tablet PO 1,000 mg TID AUGUSTUS Administration Albuterol Sulfate 2.5 mg 01/05/25 15:25 Albuterol 2.5 Mg/3 Ml Vial.Neb. INHALATION Q4H PRN shortness of breath or wheezing Apixaban 5 mg 01/11/25 10:00 Apixaban 5 Mg Tablet PO BID AUGUSTUS Apixaban 10 mg 01/05/25 22:00 01/07/25 08:06 Apixaban 5 Mg Tablet PO 01/10/25 23:55 10 mg BID AUGUSTUS Administration Atorvastatin Calcium 80 mg 01/05/25 21:00 01/06/25 21:36 Atorvastatin Calcium 80 Mg Tablet PO 80 mg QPM AUGUSTUS Administration Ferrous Sulfate 325 mg 01/05/25 17:00 01/06/25 17:46 Ferrous Sulfate 325 Mg Tablet PO 325 mg 1200,1700 AUGUSTUS Administration Folic Acid 1 mg 01/06/25 08:00 01/07/25 08:06 Folic Acid 1 Mg Tablet PO 1 mg BREAKFAST AUGUSTUS Administration Gabapentin 300 mg 01/05/25 22:00 01/07/25 05:56 Gabapentin 300 Mg Capsule PO 300 mg TID AUGUSTUS Administration Guaifenesin 600 mg 01/06/25 10:00 01/07/25 08:07 Guaifenesin 600 Mg Tablet PO 600 mg DAILY AUGUSTUS Administration Isosorbide Mononitrate 60 mg 01/06/25 10:00 01/07/25 08:07 Isosorbide Mononitrate 60 Mg Tablet PO 60 mg DAILY AUGUSTUS Administration Protocol Levothyroxine Sodium 200 mcg 01/06/25 06:00 01/07/25 05:57 Levothyroxine 100 Mcg Tablet PO 200 mcg DAILY@0600 AUUGSTUS Administration Lisinopril 20 mg 01/06/25 10:00 01/07/25 08:08 Lisinopril 20 Mg Tablet PO 20 mg DAILY AUGUSTUS Administration Protocol Magnesium Citrate 300 ml 01/05/25 21:08 01/06/25 19:26 Magnesium Citrate 300 Ml PO 300 ml DAILY PRN PRN Administration Constipation Meclizine HCl 25 mg 01/05/25 14:12 Meclizine Hcl 25 Mg Tablet PO Q6H PRN dizziness Metoprolol Succinate 50 mg 01/06/25 10:00 01/07/25 08:08 Metoprolol(Xl)Succ 50 Mg Tablet PO 50 mg DAILY [facility] Administration Protocol Montelukast Sodium 10 mg 01/06/25 10:00 01/07/25 08:08 Montelukast 10 Mg Tablet PO 10 mg DAILY AUGUSTUS Administration Nitroglycerin 0.4 mg 01/05/25 14:12 Nitroglycerin (Inpatient Use) 0.4 Mg Tab.Subl SL Q5M PRN Chest Pain Pantoprazole Sodium 40 mg 01/06/25 10:00 01/07/25 08:08 Pantoprazole Sodium 40 Mg Tablet PO 40 mg DAILY AUGUSTUS Administration Fluticasone/Salmeterol 1 puff 01/05/25 22:00 01/07/25 08:07 Fluticasone/Salmeterol 232-14 Inhaler INHALATION 1 puff Q12 AUGUSTUS Administration Senna/Docusate Sodium 2 tablet 01/05/25 22:00 01/07/25 08:08 Senna/Docusate Sodium 1 Tablet PO 2 tablet BID AUGUSTUS Administration Sodium Chloride 10 - 40 ml 01/05/25 14:31 0.9% Saline Lock 10 Ml Syringe IV UD PRN SALINE FLUSH Spironolactone 25 mg 01/06/25 08:00 01/07/25 08:06 Spironolactone 25 Mg Tablet PO 25 mg DAILYCM AUGUSTUS Administration Protocol Tolterodine Tartrate 4 mg 01/06/25 10:00 01/07/25 08:06 Tolterodine Tartrate 4 Mg Cap.Sa PO 4 mg DAILY AUGUSTUS Administration Tramadol HCl 50 mg 01/06/25 06:00 01/07/25 05:56 Tramadol 50 Mg Tablet PO 50 mg 0600,1800 AUGUSTUS Administration Tramadol HCl 50 mg 01/06/25 07:45 01/06/25 11:50 Tramadol 50 Mg Tablet PO 50 mg Q6H PRN Administration Pain Score 1-10 or Pre PT/OT Tuberculin PPD 0.1 ml 01/13/25 10:00 Tuberculin,Purif.Prot.Deriv. 50 Tu/Ml Vial ID 01/13/25 10:01 X1 ONE Problem List Chronic kidney disease, stage 3a (Chronic) Essential (primary) hypertension (Acute) Sleep apnea (Acute) Acute deep vein thrombosis (DVT) of left lower extremity (Acute) Debility (Acute) Status post total left knee replacement (Acute) Rheumatoid arthritis (Chronic) Hyperlipidemia (Chronic) GERD (gastroesophageal reflux disease) (Chronic) Hypothyroidism (Chronic) Anxiety (Chronic) Coronary artery disease (Chronic) Vital Signs Temp Pulse Resp BP Pulse Ox O2 Del Method O2 Flow Rate 97.9 F 71 18 171/92 H 97 Room Air 2 01/07/25 08:03 01/07/25 08:08 01/07/25 08:03 01/07/25 08:03 01/07/25 08:03 01/07/25 08:03 01/06/25 10:12 Oxygen Flow Rate (L/min) 2 Oxygen Delivery Method Room Air Weight: 97.125 kg Body Mass Index (BMI) 36.7 Sodium 134 mmol/L (133-145) 01/06/25 07:11 Potassium 4.5 mmol/L (3.3-5.1) 01/06/25 07:11 Chloride 101 mmol/L (98-108) 01/06/25 07:11 Carbon Dioxide 23.3 mmol/L (21.0-32.0) 01/06/25 07:11 Anion Gap 10 (5-15) 01/06/25 07:11 BUN 17 mg/dL (4-19) 01/06/25 07:11 Creatinine 0.85 mg/dL (0.70-1.20) 01/06/25 07:11 Est GFR (MDRD) Non-Af 66 (>60) 01/06/25 07:11 BUN/Creatinine Ratio 19.5 RATIO (10-20) 01/06/25 07:11 Glucose 104 mg/dL (70-99) H 01/06/25 07:11 Assessment/Plan: Assessment/Plan for indications treated with psychotropic medications: Medical chart and medication regimen reviewed. The following medication irregularities or issues were identified: Date Date of Note: 01/07/25
--- NOTE | 2025-01-07 11:18 | NURSING ---
Basketball Scout Note; Activity Asset: Chalo Vernon has been on TCU in the past and is independent in her choice of daily activities. Her visits daily and brings her items from home. She has her smartphone, word puzzles book, watches tv, reads and enjoys the puzzles in the newspaper. She welcomes visits from the vehicle service attendant and therapy dog when available. Staff will encourage social activities, remind her of weekly activities and respect her right to say no.
[2025-01-07] MEDS: Ferrous Sulfate 325 MG Tablet PO ×2 (11:47→17:27)
[2025-01-07 13:23] VITALS: BP 118/59; PULSE 69
[2025-01-07] MEDS: 0.9% Saline Lock 10 ML Syringe IV (13:24)
[2025-01-07] MEDS: Atorvastatin Calcium 80 MG Tablet PO (20:40)
[2025-01-08] MEDS: traMADol 50 MG Tablet PO ×3 (06:09→22:15)
[2025-01-08] MEDS: Gabapentin 300 MG Capsule PO ×3 (06:09→22:15)
[2025-01-08] MEDS: Levothyroxine 100 MCG Tablet 200 MCG PO (06:09)
[2025-01-08] MEDS: Acetaminophen 500 MG Tablet 1000 MG PO ×3 (06:09→22:08)
[2025-01-08 07:37] LABS: Cholesterol 116 mg/dL (<=200); High Density Lipoprotein 41 mg/dL; Low Density Lipoprotein Calc. 58 mg/dL; Triglycerides 88 mg/dL; Very Low Density Lipoprotein 18 mg/dL (5-40); cholesterol:hdl ratio screen 2.86
[2025-01-08] MEDS: Folic Acid 1 MG Tablet PO (09:46)
[2025-01-08] MEDS: Spironolactone 25 MG Tablet PO (09:46)
[2025-01-08] MEDS: Pantoprazole Sodium 40 MG Tablet PO (09:47)
[2025-01-08] MEDS: Fluticasone/Salmeterol 232-14 Inhaler 1 PUFF INHALATION ×2 (09:47→22:07)
[2025-01-08] MEDS: APIXABAN 5 MG TABLET 10 MG PO ×2 (09:47→22:06)
[2025-01-08] MEDS: guaiFENesin 600 MG Tablet PO (09:47)
[2025-01-08] MEDS: Isosorbide Mononitrate 60 MG Tablet PO (09:47)
[2025-01-08] MEDS: Montelukast 10 MG Tablet PO (09:47)
[2025-01-08] MEDS: Tolterodine Tartrate 4 MG CAP.SA PO (09:47)
[2025-01-08 09:48] VITALS: PULSE 72
[2025-01-08] MEDS: Lisinopril 20 MG Tablet PO (09:48)
[2025-01-08] MEDS: Metoprolol(XL)Succ 50 MG Tablet PO (09:48)
[2025-01-08 11:12] VITALS: BP 116/52; PULSE 72; RESP 18; TEMP 36.5; O2SAT 96
[2025-01-08] MEDS: Ferrous Sulfate 325 MG Tablet PO ×2 (13:13→17:33)
[2025-01-08] MEDS: Atorvastatin Calcium 80 MG Tablet PO (22:05)
[2025-01-08] MEDS: Senna/Docusate Sodium 1 Tablet 2 TABLET PO (22:08)
[2025-01-08] MEDS: 0.9% Saline Lock 10 ML Syringe IV (22:12)
[2025-01-09] MEDS: Acetaminophen 500 MG Tablet 1000 MG PO ×3 (05:13→20:09)
[2025-01-09] MEDS: Gabapentin 300 MG Capsule PO ×3 (05:13→20:07)
[2025-01-09] MEDS: traMADol 50 MG Tablet PO ×3 (05:13→20:14)
[2025-01-09] MEDS: Levothyroxine 100 MCG Tablet 200 MCG PO (05:13)
[2025-01-09 09:05] VITALS: BP 118/50; PULSE 73; RESP 18; TEMP 36.5; O2SAT 95
[2025-01-09] MEDS: Fluticasone/Salmeterol 232-14 Inhaler 1 PUFF INHALATION ×2 (09:24→20:08)
[2025-01-09] MEDS: Folic Acid 1 MG Tablet PO (09:24)
[2025-01-09] MEDS: Spironolactone 25 MG Tablet PO (09:24)
[2025-01-09 09:25] VITALS: PULSE 73
[2025-01-09] MEDS: guaiFENesin 600 MG Tablet PO (09:25)
[2025-01-09] MEDS: Tolterodine Tartrate 4 MG CAP.SA PO (09:25)
[2025-01-09] MEDS: Isosorbide Mononitrate 60 MG Tablet PO (09:25)
[2025-01-09] MEDS: Montelukast 10 MG Tablet PO (09:25)
[2025-01-09] MEDS: Senna/Docusate Sodium 1 Tablet 2 TABLET PO ×2 (09:25→20:08)
[2025-01-09] MEDS: Lisinopril 20 MG Tablet PO (09:25)
[2025-01-09] MEDS: Metoprolol(XL)Succ 50 MG Tablet PO (09:25)
[2025-01-09] MEDS: APIXABAN 5 MG TABLET 10 MG PO ×2 (09:25→20:07)
[2025-01-09] MEDS: Pantoprazole Sodium 40 MG Tablet PO (09:25)
[2025-01-09] MEDS: Ferrous Sulfate 325 MG Tablet PO ×2 (13:00→17:08)
[2025-01-09] MEDS: Magnesium Citrate 300 ML PO (17:08)
[2025-01-09] MEDS: Atorvastatin Calcium 80 MG Tablet PO (20:07)
[2025-01-09] MEDS: 0.9% Saline Lock 10 ML Syringe IV (20:10)
[2025-01-10] MEDS: Levothyroxine 100 MCG Tablet 200 MCG PO (05:17)
[2025-01-10] MEDS: traMADol 50 MG Tablet PO ×2 (05:17→17:09)
[2025-01-10] MEDS: Gabapentin 300 MG Capsule PO ×3 (05:17→21:15)
[2025-01-10] MEDS: Acetaminophen 500 MG Tablet 1000 MG PO ×3 (05:17→21:14)
[2025-01-10 08:45] VITALS: BP 113/45; PULSE 72; RESP 16; TEMP 36.8; O2SAT 94
[2025-01-10] MEDS: Fluticasone/Salmeterol 232-14 Inhaler 1 PUFF INHALATION ×2 (08:48→21:13)
[2025-01-10] MEDS: Tolterodine Tartrate 4 MG CAP.SA PO (08:48)
[2025-01-10 08:49] VITALS: PULSE 72
[2025-01-10] MEDS: Spironolactone 25 MG Tablet PO (08:49)
[2025-01-10] MEDS: Isosorbide Mononitrate 60 MG Tablet PO (08:49)
[2025-01-10] MEDS: Folic Acid 1 MG Tablet PO (08:49)
[2025-01-10] MEDS: Metoprolol(XL)Succ 50 MG Tablet PO (08:49)
[2025-01-10] MEDS: APIXABAN 5 MG TABLET 10 MG PO ×2 (08:49→21:15)
[2025-01-10] MEDS: guaiFENesin 600 MG Tablet PO (08:49)
[2025-01-10] MEDS: Lisinopril 20 MG Tablet PO (08:49)
[2025-01-10] MEDS: Pantoprazole Sodium 40 MG Tablet PO (08:49)
[2025-01-10] MEDS: Senna/Docusate Sodium 1 Tablet 2 TABLET PO ×2 (08:49→21:14)
[2025-01-10] MEDS: Montelukast 10 MG Tablet PO (08:50)
[2025-01-10] MEDS: Ferrous Sulfate 325 MG Tablet PO ×2 (13:09→17:09)
[2025-01-10] MEDS: 0.9% Saline Lock 10 ML Syringe IV ×2 (15:40→21:15)
[2025-01-10 17:20] VITALS: PULSE 71; RESP 16; O2SAT 97
[2025-01-10] MEDS: Atorvastatin Calcium 80 MG Tablet PO (21:14)
[2025-01-11] MEDS: Gabapentin 300 MG Capsule PO ×3 (05:07→21:23)
[2025-01-11] MEDS: Levothyroxine 100 MCG Tablet 200 MCG PO (05:07)
[2025-01-11] MEDS: Acetaminophen 500 MG Tablet 1000 MG PO ×3 (05:07→21:23)
[2025-01-11] MEDS: traMADol 50 MG Tablet PO ×3 (05:07→18:39)
[2025-01-11] MEDS: Folic Acid 1 MG Tablet PO (09:21)
[2025-01-11] MEDS: Spironolactone 25 MG Tablet PO (09:21)
[2025-01-11] MEDS: Fluticasone/Salmeterol 232-14 Inhaler 1 PUFF INHALATION ×2 (09:21→21:23)
[2025-01-11] MEDS: Tolterodine Tartrate 4 MG CAP.SA PO (09:21)
[2025-01-11] MEDS: Senna/Docusate Sodium 1 Tablet 2 TABLET PO ×2 (09:22→21:23)
[2025-01-11] MEDS: Pantoprazole Sodium 40 MG Tablet PO (09:22)
[2025-01-11] MEDS: APIXABAN 5 MG TABLET PO ×2 (09:22→21:23)
[2025-01-11] MEDS: Isosorbide Mononitrate 60 MG Tablet PO (09:22)
[2025-01-11] MEDS: guaiFENesin 600 MG Tablet PO (09:22)
[2025-01-11 09:23] VITALS: BP 154/57; PULSE 68
[2025-01-11] MEDS: Metoprolol(XL)Succ 50 MG Tablet PO (09:23)
[2025-01-11] MEDS: Lisinopril 20 MG Tablet PO (09:23)
[2025-01-11] MEDS: Montelukast 10 MG Tablet PO (09:23)
[2025-01-11 09:27] VITALS: BP 154/57; PULSE 68; RESP 18; TEMP 36.4; O2SAT 98
[2025-01-11 10:30] VITALS: PULSE 68; RESP 18; O2SAT 98
[2025-01-11] MEDS: 0.9% Saline Lock 10 ML Syringe IV (10:53)
[2025-01-11] MEDS: Ferrous Sulfate 325 MG Tablet PO ×2 (11:09→17:43)
[2025-01-11 11:13] VITALS: BMI 36.5
[2025-01-11] MEDS: Atorvastatin Calcium 80 MG Tablet PO (21:23)
[2025-01-12] MEDS: Gabapentin 300 MG Capsule PO ×3 (05:03→22:24)
[2025-01-12] MEDS: Levothyroxine 100 MCG Tablet 200 MCG PO (05:03)
[2025-01-12] MEDS: traMADol 50 MG Tablet PO ×3 (05:03→17:31)
[2025-01-12] MEDS: Acetaminophen 500 MG Tablet 1000 MG PO ×3 (05:03→22:18)
--- NOTE | 2025-01-12 08:45 | NURSING ---
Conveyor Belt Repairer Note; MDS for 01/11/2025 Complete
--- NOTE | 2025-01-12 09:06 | CASEMGMT ---
Social Work IDT met with patient, and dtr for care plan meeting. Discussed patient's progress in PT/OT/SN. Educated to [facility] insurance with NRD 01/11 and continued stay is not guaranteed with each review. Provided pt/family with written communication of insurance process and copay coverage during stay. Pt needs to be able to complete steps to enter and navigate inside to the bed/bath/laundry. No other concerns noted. SW will continue to follow for DC planning assistance. Anna Newman DRUM WORKER DAY CARE DIRECTOR
[2025-01-12] MEDS: Tolterodine Tartrate 4 MG CAP.SA PO (09:40)
[2025-01-12] MEDS: Folic Acid 1 MG Tablet PO (09:40)
[2025-01-12] MEDS: Spironolactone 25 MG Tablet PO (09:40)
[2025-01-12] MEDS: Fluticasone/Salmeterol 232-14 Inhaler 1 PUFF INHALATION ×2 (09:41→22:18)
[2025-01-12] MEDS: APIXABAN 5 MG TABLET PO ×2 (09:41→22:18)
[2025-01-12 09:42] VITALS: BP 119/57; PULSE 67
[2025-01-12] MEDS: Isosorbide Mononitrate 60 MG Tablet PO (09:42)
[2025-01-12] MEDS: Pantoprazole Sodium 40 MG Tablet PO (09:42)
[2025-01-12] MEDS: guaiFENesin 600 MG Tablet PO (09:42)
[2025-01-12] MEDS: Senna/Docusate Sodium 1 Tablet 2 TABLET PO (09:42)
[2025-01-12] MEDS: Metoprolol(XL)Succ 50 MG Tablet PO (09:42)
[2025-01-12] MEDS: Montelukast 10 MG Tablet PO (09:42)
[2025-01-12] MEDS: Lisinopril 20 MG Tablet PO (09:43)
[2025-01-12 09:50] VITALS: BP 119/57; PULSE 67; RESP 18; TEMP 36.5; O2SAT 67
[2025-01-12] MEDS: Ferrous Sulfate 325 MG Tablet PO ×2 (11:53→17:32)
--- NOTE | 2025-01-12 16:33 | CASEMGMT ---
Social Work SW completed BIMS () and PHQ-2 () for MDS assessment. Anna Newman AREA SUPERVISOR COMPUTER ARCHITECT
[2025-01-12] MEDS: Atorvastatin Calcium 80 MG Tablet PO (22:18)
[2025-01-13] MEDS: Gabapentin 300 MG Capsule PO ×3 (05:17→21:52)
[2025-01-13] MEDS: traMADol 50 MG Tablet PO ×3 (05:18→21:59)
[2025-01-13] MEDS: Levothyroxine 100 MCG Tablet 200 MCG PO (05:18)
[2025-01-13] MEDS: Acetaminophen 500 MG Tablet 1000 MG PO ×3 (05:18→21:52)
[2025-01-13 07:20] LABS: Absolute Lymphocyte Count 1.37 X10^3/uL (0.83-4.51); Absolute Neutrophil Count 3.4 X10^3/uL (2.0-7.7); Basophil# 0.04 X10^3/uL; Basophil% 0.7 % (0-1); Eosinophils% 8.1 % (0-5); Hematocrit 27.2 % (37-47); Hemoglobin 9.9 g/dL (12.0-15.0); Lymphocyte # 1.37 X10^3/ul (0.83-4.51); Lymphocyte % 22.3 % (19-41); Mean Corp Hgb Conc 36.4 g/dL (32-36); Mean Corpuscular Hgb 34.4 pg (27.0-32.0); Mean Corpuscular Volume 94.4 fL (81-99); Mean Platelet Vol. 9.4 fl (6.2-12.0); Monocyte# 0.76 X10^3/uL; Monocyte% 12.4 % (0-10); NRBC Flagged by Analyzer 0 % (0-5); Neutrophil # 3.39 X10^3/uL (2.7-7.7); Platelet Count 293 K/mm3 (150-450); RBC Distribution Width CV 17.4 % (11.6-14.6); RBC Distribution Width SD 55.3 fl (35.1-43.9); Red Blood Count 2.88 M/mm3 (4.2-5.4); White Blood Count 6.2 K/mm3 (4.4-11.0)
[2025-01-13 08:16] LABS: Anion Gap 9 (5-15); BUN 27 mg/dL (4-19); BUN/Creat Ratio 25.6 RATIO (10-20); Carbon Dioxide 21.6 mmol/L (21.0-32.0); Chloride 103 mmol/L (98-108); Creatinine, Serum 1.04 mg/dL (0.70-1.20); EST Glomerular Filtration Rate 52 (>60); Estimated Creatinine Clearance 43.77 ml/min (50-250); Glucose 107 mg/dL (70-99); Potassium 4.7 mmol/L (3.3-5.1); Sodium Level 134 mmol/L (133-145)
[2025-01-13 09:01] VITALS: BP 113/50; PULSE 72; RESP 17; TEMP 36.7; O2SAT 95
[2025-01-13] MEDS: Lactobacillis Acidophilus 1 CAP PO ×2 (09:07→21:52)
[2025-01-13] MEDS: Spironolactone 25 MG Tablet PO (09:07)
[2025-01-13] MEDS: Tolterodine Tartrate 4 MG CAP.SA PO (09:07)
[2025-01-13] MEDS: Folic Acid 1 MG Tablet PO (09:07)
[2025-01-13] MEDS: Isosorbide Mononitrate 60 MG Tablet PO (09:08)
[2025-01-13] MEDS: APIXABAN 5 MG TABLET PO ×2 (09:08→21:52)
[2025-01-13] MEDS: Fluticasone/Salmeterol 232-14 Inhaler 1 PUFF INHALATION ×2 (09:08→21:52)
[2025-01-13] MEDS: guaiFENesin 600 MG Tablet PO (09:08)
[2025-01-13 09:09] VITALS: PULSE 72
[2025-01-13] MEDS: Pantoprazole Sodium 40 MG Tablet PO (09:09)
[2025-01-13] MEDS: Metoprolol(XL)Succ 50 MG Tablet PO (09:09)
[2025-01-13] MEDS: Lisinopril 20 MG Tablet PO (09:09)
[2025-01-13] MEDS: Montelukast 10 MG Tablet PO (09:09)
[2025-01-13] MEDS: Ferrous Sulfate 325 MG Tablet PO ×2 (12:25→16:29)
[2025-01-13] MEDS: Tuberculin,Purif.prot.deriv. 50 TU/ML Vial 0.1 ML ID (12:25)
[2025-01-13] MEDS: Senna/Docusate Sodium 1 Tablet 2 TABLET PO (21:52)
[2025-01-13] MEDS: Atorvastatin Calcium 80 MG Tablet PO (21:53)
[2025-01-14] MEDS: traMADol 50 MG Tablet PO ×3 (06:10→22:02)
[2025-01-14] MEDS: Acetaminophen 500 MG Tablet 1000 MG PO ×3 (06:10→21:59)
[2025-01-14] MEDS: Gabapentin 300 MG Capsule PO ×3 (06:11→21:58)
[2025-01-14] MEDS: Levothyroxine 100 MCG Tablet 200 MCG PO (06:11)
[2025-01-14] MEDS: Fluticasone/Salmeterol 232-14 Inhaler 1 PUFF INHALATION ×2 (09:20→22:00)
[2025-01-14] MEDS: Pantoprazole Sodium 40 MG Tablet PO (09:21)
[2025-01-14] MEDS: Folic Acid 1 MG Tablet PO (09:22)
[2025-01-14] MEDS: Lactobacillis Acidophilus 1 CAP PO ×2 (09:22→21:59)
[2025-01-14] MEDS: guaiFENesin 600 MG Tablet PO (09:23)
[2025-01-14] MEDS: Isosorbide Mononitrate 60 MG Tablet PO (09:23)
[2025-01-14] MEDS: APIXABAN 5 MG TABLET PO ×2 (09:23→21:58)
[2025-01-14] MEDS: Spironolactone 25 MG Tablet PO (09:24)
[2025-01-14] MEDS: Montelukast 10 MG Tablet PO (09:24)
[2025-01-14] MEDS: Tolterodine Tartrate 4 MG CAP.SA PO (09:24)
[2025-01-14 09:25] VITALS: BP 105/65; PULSE 87
[2025-01-14] MEDS: Metoprolol(XL)Succ 50 MG Tablet PO (09:25)
[2025-01-14] MEDS: Lisinopril 20 MG Tablet PO (09:25)
[2025-01-14 09:29] VITALS: BP 105/65; PULSE 73; RESP 18; TEMP 36.8; O2SAT 96
[2025-01-14] MEDS: Ferrous Sulfate 325 MG Tablet PO ×2 (11:09→17:20)
[2025-01-14 13:00] VITALS: PULSE 61; RESP 18; O2SAT 95
[2025-01-14] MEDS: Senna/Docusate Sodium 1 Tablet 2 TABLET PO (21:58)
[2025-01-14] MEDS: Atorvastatin Calcium 80 MG Tablet PO (21:59)
[2025-01-15] MEDS: Acetaminophen 500 MG Tablet 1000 MG PO ×3 (05:35→21:34)
[2025-01-15] MEDS: Gabapentin 300 MG Capsule PO ×3 (05:35→21:39)
[2025-01-15] MEDS: Levothyroxine 100 MCG Tablet 200 MCG PO (05:35)
[2025-01-15] MEDS: traMADol 50 MG Tablet PO ×3 (05:39→21:39)
[2025-01-15] MEDS: Spironolactone 25 MG Tablet PO (09:16)
[2025-01-15] MEDS: Fluticasone/Salmeterol 232-14 Inhaler 1 PUFF INHALATION ×2 (09:16→21:35)
[2025-01-15] MEDS: Senna/Docusate Sodium 1 Tablet 2 TABLET PO (09:17)
[2025-01-15] MEDS: Lisinopril 20 MG Tablet PO (09:17)
[2025-01-15] MEDS: Lactobacillis Acidophilus 1 CAP PO ×2 (09:17→21:35)
[2025-01-15] MEDS: Pantoprazole Sodium 40 MG Tablet PO (09:17)
[2025-01-15] MEDS: APIXABAN 5 MG TABLET PO ×2 (09:17→21:35)
[2025-01-15] MEDS: Isosorbide Mononitrate 60 MG Tablet PO (09:17)
[2025-01-15] MEDS: guaiFENesin 600 MG Tablet PO (09:17)
[2025-01-15] MEDS: Folic Acid 1 MG Tablet PO (09:17)
[2025-01-15] MEDS: Montelukast 10 MG Tablet PO (09:17)
[2025-01-15] MEDS: Tolterodine Tartrate 4 MG CAP.SA PO (09:17)
[2025-01-15 09:18] VITALS: PULSE 62
[2025-01-15] MEDS: Metoprolol(XL)Succ 50 MG Tablet PO (09:18)
[2025-01-15] MEDS: Calcium Carbonate 500 MG Tablet 1000 MG PO ×2 (09:22→18:51)
[2025-01-15 10:50] VITALS: BP 121/64; PULSE 62; RESP 18; TEMP 36.5; O2SAT 97
[2025-01-15] MEDS: Ferrous Sulfate 325 MG Tablet PO ×2 (13:28→16:58)
[2025-01-15] MEDS: Atorvastatin Calcium 80 MG Tablet PO (21:35)
[2025-01-16] MEDS: traMADol 50 MG Tablet PO ×2 (04:15→16:30)
[2025-01-16] MEDS: Calcium Carbonate 500 MG Tablet 1000 MG PO ×2 (04:20→12:03)
[2025-01-16] MEDS: Gabapentin 300 MG Capsule PO ×3 (05:30→20:41)
[2025-01-16] MEDS: Levothyroxine 100 MCG Tablet 200 MCG PO (05:30)
[2025-01-16] MEDS: Acetaminophen 500 MG Tablet 1000 MG PO ×3 (05:30→20:42)
[2025-01-16] MEDS: guaiFENesin 600 MG Tablet PO (09:14)
[2025-01-16] MEDS: APIXABAN 5 MG TABLET PO ×2 (09:14→20:41)
[2025-01-16] MEDS: Montelukast 10 MG Tablet PO (09:14)
[2025-01-16] MEDS: Senna/Docusate Sodium 1 Tablet 2 TABLET PO (09:14)
[2025-01-16] MEDS: Isosorbide Mononitrate 60 MG Tablet PO (09:14)
[2025-01-16] MEDS: Spironolactone 25 MG Tablet PO (09:14)
[2025-01-16] MEDS: Tolterodine Tartrate 4 MG CAP.SA PO (09:14)
[2025-01-16] MEDS: Pantoprazole Sodium 40 MG Tablet PO (09:14)
[2025-01-16] MEDS: Lactobacillis Acidophilus 1 CAP PO ×2 (09:14→20:41)
[2025-01-16] MEDS: Folic Acid 1 MG Tablet PO (09:14)
[2025-01-16] MEDS: Fluticasone/Salmeterol 232-14 Inhaler 1 PUFF INHALATION ×2 (09:14→20:41)
[2025-01-16 09:15] VITALS: PULSE 64
[2025-01-16] MEDS: Metoprolol(XL)Succ 50 MG Tablet PO (09:15)
[2025-01-16] MEDS: Lisinopril 20 MG Tablet PO (09:15)
[2025-01-16 10:34] VITALS: BP 139/62; PULSE 64; RESP 18; TEMP 36.2; O2SAT 95
[2025-01-16] MEDS: Ferrous Sulfate 325 MG Tablet PO ×2 (12:03→16:29)
[2025-01-16] MEDS: Atorvastatin Calcium 80 MG Tablet PO (20:41)
[2025-01-17] MEDS: Levothyroxine 100 MCG Tablet 200 MCG PO (05:50)
[2025-01-17] MEDS: Gabapentin 300 MG Capsule PO ×3 (05:50→20:37)
[2025-01-17] MEDS: Acetaminophen 500 MG Tablet 1000 MG PO ×3 (05:51→20:43)
[2025-01-17] MEDS: traMADol 50 MG Tablet PO ×3 (05:58→20:50)
[2025-01-17] MEDS: Folic Acid 1 MG Tablet PO (08:26)
[2025-01-17] MEDS: Spironolactone 25 MG Tablet PO (08:26)
[2025-01-17] MEDS: Calcium Carbonate 500 MG Tablet 1000 MG PO (08:31)
[2025-01-17] MEDS: Isosorbide Mononitrate 60 MG Tablet PO (11:12)
[2025-01-17] MEDS: guaiFENesin 600 MG Tablet PO (11:12)
[2025-01-17] MEDS: Lactobacillis Acidophilus 1 CAP PO ×2 (11:12→20:40)
[2025-01-17] MEDS: Tolterodine Tartrate 4 MG CAP.SA PO (11:12)
[2025-01-17] MEDS: APIXABAN 5 MG TABLET PO ×2 (11:12→20:42)
[2025-01-17] MEDS: Pantoprazole Sodium 40 MG Tablet PO (11:12)
[2025-01-17] MEDS: Montelukast 10 MG Tablet PO (11:13)
[2025-01-17] MEDS: Senna/Docusate Sodium 1 Tablet 2 TABLET PO ×2 (11:13→20:43)
[2025-01-17] MEDS: Fluticasone/Salmeterol 232-14 Inhaler 1 PUFF INHALATION ×2 (11:13→20:37)
[2025-01-17 11:17] VITALS: PULSE 80
[2025-01-17] MEDS: Lisinopril 20 MG Tablet PO (11:17)
[2025-01-17] MEDS: Ferrous Sulfate 325 MG Tablet PO ×2 (11:17→16:10)
[2025-01-17] MEDS: Metoprolol(XL)Succ 50 MG Tablet PO (11:17)
--- NOTE | 2025-01-17 11:18 | NURSING ---
Returned from appt with Thanh MOBLEY. Orders to stop MARIE hose, continue meds as ordered. Follow-up for outpatient PT when at DC if appropriate. Follow-up with Dr. Mcintosh in 4 weeks.
[2025-01-17 14:04] VITALS: BP 130/62; PULSE 65; RESP 17; TEMP 36.4; O2SAT 96
[2025-01-17] MEDS: Atorvastatin Calcium 80 MG Tablet PO (20:39)
[2025-01-18] MEDS: Acetaminophen 500 MG Tablet 1000 MG PO ×3 (05:30→20:42)
[2025-01-18] MEDS: Levothyroxine 100 MCG Tablet 200 MCG PO (05:30)
[2025-01-18] MEDS: Gabapentin 300 MG Capsule PO ×3 (05:30→20:42)
[2025-01-18 08:02] VITALS: BP 129/67; PULSE 63; RESP 12; TEMP 36.4; O2SAT 96
[2025-01-18] MEDS: Folic Acid 1 MG Tablet PO (09:13)
[2025-01-18] MEDS: APIXABAN 5 MG TABLET PO ×2 (09:13→20:42)
[2025-01-18] MEDS: Lactobacillis Acidophilus 1 CAP PO ×2 (09:13→20:42)
[2025-01-18] MEDS: Spironolactone 25 MG Tablet PO (09:13)
[2025-01-18] MEDS: Fluticasone/Salmeterol 232-14 Inhaler 1 PUFF INHALATION ×2 (09:14→20:42)
[2025-01-18] MEDS: Tolterodine Tartrate 4 MG CAP.SA PO (09:14)
[2025-01-18] MEDS: guaiFENesin 600 MG Tablet PO (09:14)
[2025-01-18] MEDS: Isosorbide Mononitrate 60 MG Tablet PO (09:14)
[2025-01-18 09:15] VITALS: PULSE 63
[2025-01-18] MEDS: Metoprolol(XL)Succ 50 MG Tablet PO (09:15)
[2025-01-18] MEDS: Lisinopril 20 MG Tablet PO (09:15)
[2025-01-18] MEDS: Senna/Docusate Sodium 1 Tablet 2 TABLET PO ×2 (09:15→20:42)
[2025-01-18] MEDS: Montelukast 10 MG Tablet PO (09:15)
[2025-01-18] MEDS: Pantoprazole Sodium 40 MG Tablet PO (09:15)
[2025-01-18] MEDS: traMADol 50 MG Tablet PO (09:17)
[2025-01-18 11:00] VITALS: BMI 35.9
[2025-01-18] MEDS: Ferrous Sulfate 325 MG Tablet PO ×2 (11:37→16:32)
--- NOTE | 2025-01-18 15:06 | CASEMGMT ---
Social Work Therapy notified this worker that pt is adlib and ready to discuss DC. - ROSA spoke with pt at bedside to discuss DC. SW offered to set DC date. Pt agreed to 4/5 as children will be off work. SW confirmed pt's wish for [facility] at [place]. Pt confirmed. ROSA educated [facility] will contact the pt to schedule the appt. Pt denied any DME needs. Family to transport. - ROSA faxed referral to [facility] for outpatient PT. Plan: DC home with 5, [facility] Anna Newman PACK PULLER SUPERVISOR ORE DRESSING
--- NOTE | 2025-01-18 15:59 | NURSING ---
charting reviewed with student that is used for educational and learning purposes.
--- NOTE | 2025-01-18 19:47 | DS.PCM_ITS ---
Providers Date of Admission: 01/05/25 Primary Care Physician: Dr. Jamal Darby MD Reason For Visit: TOTAL KNEE REPLACEMENT/ROBOTIC ARM Diagnosis Discharge Diagnosis (1) Debility: Status: Acute Code(s): R53.81 - Other malaise (2) Status post total left knee replacement: Status: Acute Code(s): Z96.652 - Presence of left artificial knee joint (3) Acute deep vein thrombosis (DVT) of left lower extremity: Status: Acute Code(s): I82.402 - Acute embolism and thrombosis of unspecified deep veins of left lower extremity (4) Hypothyroidism: Status: Chronic Code(s): E03.9 - Hypothyroidism, unspecified (5) Sleep apnea: Status: Acute Code(s): G47.30 - Sleep apnea, unspecified (6) GERD (gastroesophageal reflux disease): Status: Chronic Code(s): K21.9 - Gastro-esophageal reflux disease without esophagitis (7) Essential (primary) hypertension: Status: Acute Code(s): I10 - Essential (primary) hypertension (8) Hyperlipidemia: Status: Chronic Code(s): E78.5 - Hyperlipidemia, unspecified (9) Chronic kidney disease, stage 3a: Status: Chronic Code(s): N18.31 - Chronic kidney disease, stage 3a (10) Coronary artery disease: Status: Chronic Code(s): I25.10 - Atherosclerotic heart disease of [place] coronary artery without angina pectoris (11) Anxiety: Status: Chronic Code(s): F41.9 - Anxiety disorder, unspecified (12) Rheumatoid arthritis: Status: Chronic Code(s): M06.9 - Rheumatoid arthritis, unspecified Plan 84 year old female with below past medical history underwent left total knee replacement 01/03/[address] Mcintosh, postoperative course complicated by left lower extremity dvt, admitted to TCU with debility, here for rehabilitation, strengthening, prior to discharge home with . * Debility - PT/OT. * Pain - Tylenol 1000mg tid, Tramadol 50mg 0600, 1800, Q12 prn. * Bowel - senna/colace 2 tablets bid, Magnesium citrate 300mL daily prn. * Adult immunization - Administer pneumonia vaccine, covid vaccine, flu vaccine as appropriate. * DVT prophylaxis - Eliquis. * Asthma - Fluticasone/Salmeterol 232-14 1 puff q12, Albuterol 2.5mg q4h prn, Singulair 10mg daily. * Acute left lower extremity dvt - Eliquis 10mg bid thru 01/10/2025, then 5mg bid. * Hyperlipidemia - Atorvastatin 80mg qhs. * Iron deficiency anemia - Ferrous sulfate 325mg bid. * Folate deficiency - Folic acid 1mg daily. * Neuropathic pain - Gabapentin 300mg tid. * Congestion - Mucinex 600mg daily. * Coronary artery disease - Metoprolol succinate 50mg daily, Lisinopril 20mg daily, Isosorbide [place] 60mg daily, Aldactone 25mg daily, NTG 0.4mg sl q5m prn. * Hypothyroidism - Levothyroxine 200mcg daily. * BPPV - Meclizine 25mg q6 prn. * GERD - Pantoprazole 40mg daily. * Overactive bladder - Tolterodine 4mg daily. Medications at Discharge Home Medications gabapentin 300 mg capsule 300 mg PO TID nerve pain 08/15/14 meclizine 25 mg tablet 25 mg PO Q6H PRN dizziness 08/15/14 nitroglycerin 0.4 mg sublingual tablet 0.4 mg sublingual Q5M PRN Chest Pain 08/15/14 metoprolol succinate 50 mg tablet,extended release 24 hr (Toprol XL) 50 mg PO DAILY [facility] 10/10/16 levothyroxine 100 mcg tablet 200 mcg PO DAILY thyroid 04/18/17 atorvastatin 80 mg tablet 80 mg PO QPM cholesterol 02/04/23 isosorbide mononitrate 60 mg tablet,extended release 24 hr 60 mg PO DAILY [facility] 02/04/23 lisinopril 20 mg tablet 20 mg PO DAILY [facility] 02/04/23 spironolactone 25 mg tablet 25 mg PO DAILY [facility] 02/04/23 tolterodine 4 mg capsule,extended release 24 hr (Detrol LA) 4 mg PO DAILY overactive bladder 02/04/23 albuterol sulfate 0.63 mg/3 mL solution for nebulization 0.63 mg inhalation Q4H PRN shortness of breath or wheezing 12/08/24 budesonide-formoterol HFA 160 mcg-4.5 mcg/actuation aerosol inhaler (Symbicort) 1 inh inhalation Q12H breathing 12/08/24 guaifenesin 600 mg tablet, extended release 12 hr 600 mg PO DAILY congestion 12/08/24 montelukast 10 mg tablet 10 mg PO DAILY allergies 12/08/24 pantoprazole 40 mg tablet,delayed release 40 mg PO DAILY stomach health 12/08/24 acetaminophen 500 mg tablet 1,000 mg (2 x 500 mg) PO TID pain 14 days #84 tabs 01/05/25 ferrous sulfate 325 mg (65 mg iron) tablet (FeroSul) 325 mg PO 1200,1700 supplement 3 weeks #0 tabs 01/05/25 folic acid 1 mg tablet 1 mg PO BREAKFAST supplement 3 weeks #0 tabs 01/05/25 tramadol 50 mg tablet 50 - 100 mg (1 - 2 x 50 mg) PO Q6H PRN PRN Pain Score 4-10 7 days #42 tabs 01/05/25 apixaban 5 mg tablet (Eliquis) 5 mg PO BID 30 days #60 tabs 01/18/25 calcium carbonate 1,000 mg (5 x 200 mg calcium (500 mg)) PO Q4H PRN PRN Indigestion #0 tabs 01/18/25 levothyroxine 150 mcg tablet 300 mcg (2 x 150 mcg) PO SuWeFrSa@0600 #0 tabs 01/18/25 Hospital Course Operations total knee replacement (Left.) Procedures None Summary of Care Provided Minutes Spent on Discharge: 35 Hospital Course: 84 year old female with below past medical history underwent left total knee replacement 01/03/[address] Mcintosh, postoperative course complicated by left lower extremity dvt, admitted to TCU with debility, here for rehabilitation, strengthening, prior to discharge home with . Treat LLE dvt thru 04/06/2025. Discharge home with 01/22/2025, [facility]. Physical Exam Const alert General Appearance: cooperative HEENT normocephalic Eyes PERRL and EOMs intact bilaterally Neck supple, no JVD and no carotid bruits Resp normal respiratory effort, normal air movement and clear to auscultation bilaterally Cardio regular rate and regular rhythm GI normal to inspection, nondistended, normoactive bowel sounds, non-tender and non-distended Extremity normal capillary refill General Extremity: Negative for edema Skin no rashes or lesions noted General Skin Exam: no breakdown Psych affect normal Appearance: appropriate Weight / BMI Weight Weight: 95.572 kg Body Mass Index (BMI) 35.9 ABG / Lab / Microbiology Data 01/13/25 07:04 01/13/25 07:04 D/C Instructions Discharge Diet: No restrictions Discharge Activity: Return to Normal Activity, May Shower and Use Walker Weight Bearing Status: Weight bearing as tolerated Call your doctor if you observe: Fever of 101 or Higher, Inability to urinate, Inability to have a bowel movement, Shortness of breath, Dizziness, Fainting spells, Swelling in the ankles, Chest pain and Uncontrolled pain DC O2, CPAP, BIPAP Needs Home O2 Discharge instructions: No Additional Instructions: Discharge home with 01/22/2025, [facility]. Please Follow Up With: Thanh MOBLEY When: As scheduled. Meaningful Use Info Meaningful Use Meaningful Use Diagnoses (Choose all that apply): None applicable Ischemic Stroke Statin Dosing Therapy Reference: STATIN DOSE THERAPY REFERENCE: * Patients > 75 years receive moderate or high dose statin therapy. * Patients 75 years or YOUNGER should receive HIGH intensity statin dose unless contraindicated. You will be required to document reason for non-treatment if statin daily dose does not meet guidelines. HIGH DOSE STATIN THERAPY DAILY Atorvastatin > than or = to 40 mg Rosuvastatin > than or = to 20 mg Amlodipine + Atorvastatin > than or = to 2.5/40 mg Ezetimibe + Simvastatin 10/80 mg Simvastatin 80mg Discharge Plan Admission Admit Date/Time: 01/05/25 13:35 Primary Reason for Your Visit: Debility. Attending Provider: Augusto Tinoco Chi Primary Care Provider: Jamal Darby Instructions Additional Instructions / Restrictions: Discharge home with 01/22/2025, [facility] PT. Discharge Orders/Prescriptions Prescriptions: New levothyroxine 150 mcg Tablet 300 mcg PO SuWeFrSa@0600 Qty: 0 0RF calcium carbonate 200 mg calcium (500 mg) Tablet,Chewable 1,000 mg PO Q4H PRN PRN (Reason: Indigestion) Qty: 0 0RF Eliquis 5 mg Tablet 5 mg PO BID 30 Days Qty: 60 0RF Continued isosorbide mononitrate 60 mg tablet extended release 24 hr 60 mg PO DAILY spironolactone 25 mg tablet 25 mg PO DAILY atorvastatin 80 mg tablet 80 mg PO QPM lisinopril 20 mg tablet 20 mg PO DAILY tolterodine [Detrol LA] 4 mg capsule,extended release 24hr 4 mg PO DAILY meclizine 25 MG tablet 25 mg PO Q6H PRN (Reason: dizziness) Patient Comments: dizziness nitroglycerin 0.4 MG tablet 0.4 mg sublingual Q5M PRN (Reason: Chest Pain) Patient Comments: chest pain gabapentin 300 MG capsule 300 mg PO TID Patient Comments: pain metoprolol succinate [Toprol XL] 50 MG tablet extended release 24 hr 50 mg PO DAILY levothyroxine 100 MCG tablet 200 mcg PO DAILY pantoprazole 40 mg tablet,delayed release (DR/EC) 40 mg PO DAILY montelukast 10 mg tablet 10 mg PO DAILY guaifenesin 600 mg tablet extended release 12hr 600 mg PO DAILY Patient Comments: [NO ORIGINAL SIG] budesonide-formoterol [Symbicort] 160-4.5 mcg/actuation HFA aerosol inhaler 1 inh INHALATION Q12H Patient Comments: [NO ORIGINAL SIG] albuterol sulfate 0.63 mg/3 mL solution for nebulization 0.63 mg inhalation Q4H PRN (Reason: shortness of breath or wheezing) acetaminophen 500 mg Tablet 1,000 mg PO TID 14 Days Qty: 84 0RF Rx Instructions: Do not take more than 3000 mg Tylenol in a 24-hour period. ferrous sulfate [FeroSul] 325 mg (65 mg iron) Tablet 325 mg PO 1200,1700 21 Days Qty: 0 0RF folic acid 1 mg Tablet 1 mg PO BREAKFAST 21 Days Qty: 0 0RF tramadol 50 mg Tablet 50 - 100 mg PO Q6H PRN PRN (Reason: Pain Score 4-10) 7 Days Qty: 42 0RF Discontinued Eliquis 5 mg Tablet 5 mg PO BID Qty: 0 0RF Rx Instructions: Start date January 11, 2025 begin Eliquis 5 mg twice daily due to acute DVT Eliquis 5 mg Tablet 10 mg PO BID Qty: 0 0RF Rx Instructions: Continue starter pack Eliquis 10 mg twice daily for 7 days and will begin Eliquis 5 mg twice daily on January 11, 2025 sennosides-docusate sodium [Stimulant Laxative Plus] 8.6-50 mg Tablet 2 tab PO BID Qty: 0 0RF Rx Instructions: Use as needed for constipation Referrals / Follow Up: Jamal Darby MD [Primary Care Provider] - Beto Mcintosh MD [Med Staff - Active Staff] - (6 week post-op follow-up) Disposition Disposition (needs filled in before D/C Order can be placed): Home, Self Care
[2025-01-18] MEDS: Atorvastatin Calcium 80 MG Tablet PO (20:42)
[2025-01-19] MEDS: traMADol 50 MG Tablet PO ×3 (02:37→21:56)
[2025-01-19] MEDS: Gabapentin 300 MG Capsule PO ×3 (06:04→21:48)
[2025-01-19] MEDS: Acetaminophen 500 MG Tablet 1000 MG PO ×3 (06:04→21:49)
[2025-01-19] MEDS: Levothyroxine 150 MCG Tablet 300 MCG PO (06:04)
[2025-01-19 06:05] VITALS: PULSE 80; O2SAT 97
[2025-01-19] MEDS: Fluticasone/Salmeterol 232-14 Inhaler 1 PUFF INHALATION ×2 (09:26→21:51)
[2025-01-19] MEDS: Folic Acid 1 MG Tablet PO (09:27)
[2025-01-19] MEDS: Montelukast 10 MG Tablet PO (09:27)
[2025-01-19] MEDS: Pantoprazole Sodium 40 MG Tablet PO (09:27)
[2025-01-19] MEDS: Spironolactone 25 MG Tablet PO (09:27)
[2025-01-19] MEDS: Lactobacillis Acidophilus 1 CAP PO ×2 (09:28→21:50)
[2025-01-19] MEDS: Tolterodine Tartrate 4 MG CAP.SA PO (09:28)
[2025-01-19] MEDS: Isosorbide Mononitrate 60 MG Tablet PO (09:29)
[2025-01-19] MEDS: APIXABAN 5 MG TABLET PO ×2 (09:29→21:50)
[2025-01-19] MEDS: guaiFENesin 600 MG Tablet PO (09:29)
[2025-01-19 09:30] VITALS: BP 114/64; PULSE 69
[2025-01-19] MEDS: Metoprolol(XL)Succ 50 MG Tablet PO (09:30)
[2025-01-19] MEDS: Lisinopril 20 MG Tablet PO (09:31)
[2025-01-19 09:35] VITALS: BP 114/64; PULSE 69; RESP 18; O2SAT 97
[2025-01-19] MEDS: Ferrous Sulfate 325 MG Tablet PO ×2 (11:17→17:18)
[2025-01-19] MEDS: Calcium Carbonate 500 MG Tablet 1000 MG PO ×2 (15:19→21:56)
[2025-01-19] MEDS: Atorvastatin Calcium 80 MG Tablet PO (21:48)
[2025-01-20] MEDS: Levothyroxine 100 MCG Tablet 200 MCG PO (05:38)
[2025-01-20] MEDS: Gabapentin 300 MG Capsule PO ×3 (05:38→20:58)
[2025-01-20] MEDS: Acetaminophen 500 MG Tablet 1000 MG PO ×3 (05:38→20:59)
[2025-01-20 07:35] LABS: Absolute Lymphocyte Count 1.07 X10^3/uL (0.83-4.51); Absolute Neutrophil Count 2.2 X10^3/uL (2.0-7.7); Basophil# 0.02 X10^3/uL; Basophil% 0.5 % (0-1); Eosinophil# 0.39 X10^3/uL; Hematocrit 32.7 % (37-47); Hemoglobin 10.8 g/dL (12.0-15.0); Lymphocyte # 1.07 X10^3/ul (0.83-4.51); Lymphocyte % 24.6 % (19-41); Mean Corpuscular Hgb 30.7 pg (27.0-32.0); Mean Corpuscular Volume 92.9 fL (81-99); Mean Platelet Vol. 9.7 fl (6.2-12.0); Monocyte# 0.59 X10^3/uL; Monocyte% 13.6 % (0-10); NRBC Flagged by Analyzer 0 % (0-5); Neutrophil # 2.24 X10^3/uL (2.7-7.7); Neutrophil % 51.4 % (47-70); Platelet Count 314 K/mm3 (150-450); RBC Distribution Width CV 17.6 % (11.6-14.6); RBC Distribution Width SD 57.8 fl (35.1-43.9); Red Blood Count 3.52 M/mm3 (4.2-5.4); White Blood Count 4.4 K/mm3 (4.4-11.0)
[2025-01-20 08:15] LABS: Anion Gap 12 (5-15); BUN 28 mg/dL (4-19); BUN/Creat Ratio 23.8 RATIO (10-20); Calcium,Total 9.6 mg/dL (7.6-11.0); Carbon Dioxide 21.5 mmol/L (21.0-32.0); Chloride 103 mmol/L (98-108); Creatinine, Serum 1.18 mg/dL (0.70-1.20); EST Glomerular Filtration Rate 45 (>60); Estimated Creatinine Clearance 38.38 ml/min (50-250); Glucose 99 mg/dL (70-99); Potassium 4.5 mmol/L (3.3-5.1); Sodium Level 136 mmol/L (133-145)
[2025-01-20] MEDS: Fluticasone/Salmeterol 232-14 Inhaler 1 PUFF INHALATION ×2 (09:20→21:00)
[2025-01-20] MEDS: Folic Acid 1 MG Tablet PO (09:21)
[2025-01-20] MEDS: Spironolactone 25 MG Tablet PO (09:21)
[2025-01-20] MEDS: Tolterodine Tartrate 4 MG CAP.SA PO (09:22)
[2025-01-20] MEDS: APIXABAN 5 MG TABLET PO ×2 (09:22→20:59)
[2025-01-20] MEDS: Pantoprazole Sodium 40 MG Tablet PO (09:22)
[2025-01-20] MEDS: Lactobacillis Acidophilus 1 CAP PO ×2 (09:22→20:59)
[2025-01-20] MEDS: guaiFENesin 600 MG Tablet PO (09:22)
[2025-01-20] MEDS: Isosorbide Mononitrate 60 MG Tablet PO (09:22)
[2025-01-20 09:23] VITALS: BP 109/59; PULSE 71
[2025-01-20] MEDS: Metoprolol(XL)Succ 50 MG Tablet PO (09:23)
[2025-01-20] MEDS: Lisinopril 20 MG Tablet PO (09:23)
[2025-01-20] MEDS: Montelukast 10 MG Tablet PO (09:23)
[2025-01-20] MEDS: traMADol 50 MG Tablet PO (09:29)
[2025-01-20 09:30] VITALS: BP 109/59; PULSE 71; RESP 18; O2SAT 98
[2025-01-20] MEDS: Ferrous Sulfate 325 MG Tablet PO ×2 (11:54→17:10)
[2025-01-20 15:25] VITALS: TEMP 36.2
[2025-01-20 15:30] VITALS: PULSE 61; RESP 18; O2SAT 95
[2025-01-20] MEDS: Senna/Docusate Sodium 1 Tablet 2 TABLET PO (20:59)
[2025-01-20] MEDS: Atorvastatin Calcium 80 MG Tablet PO (21:00)
[2025-01-21] MEDS: Acetaminophen 500 MG Tablet 1000 MG PO ×3 (05:23→21:53)
[2025-01-21] MEDS: Gabapentin 300 MG Capsule PO ×3 (05:23→21:50)
[2025-01-21] MEDS: Levothyroxine 150 MCG Tablet 300 MCG PO (05:23)
[2025-01-21 08:24] VITALS: BP 134/59; PULSE 66; RESP 16; TEMP 36; O2SAT 96
[2025-01-21] MEDS: Folic Acid 1 MG Tablet PO (08:27)
[2025-01-21] MEDS: Spironolactone 25 MG Tablet PO (08:27)
[2025-01-21] MEDS: Lactobacillis Acidophilus 1 CAP PO ×2 (08:27→21:52)
[2025-01-21] MEDS: Tolterodine Tartrate 4 MG CAP.SA PO (08:28)
[2025-01-21] MEDS: Isosorbide Mononitrate 60 MG Tablet PO (08:28)
[2025-01-21] MEDS: APIXABAN 5 MG TABLET PO ×2 (08:28→21:52)
[2025-01-21] MEDS: guaiFENesin 600 MG Tablet PO (08:28)
[2025-01-21] MEDS: Pantoprazole Sodium 40 MG Tablet PO (08:28)
[2025-01-21 08:29] VITALS: PULSE 66
[2025-01-21] MEDS: Metoprolol(XL)Succ 50 MG Tablet PO (08:29)
[2025-01-21] MEDS: Montelukast 10 MG Tablet PO (08:29)
[2025-01-21] MEDS: Fluticasone/Salmeterol 232-14 Inhaler 1 PUFF INHALATION ×2 (08:29→21:50)
[2025-01-21] MEDS: Lisinopril 20 MG Tablet PO (08:29)
[2025-01-21 11:34] VITALS: PULSE 66; RESP 16; O2SAT 96
[2025-01-21] MEDS: Ferrous Sulfate 325 MG Tablet PO ×2 (12:34→17:07)
[2025-01-21] MEDS: traMADol 50 MG Tablet PO ×2 (12:36→21:56)
--- NOTE | 2025-01-21 13:05 | MDS.RN ---
Pain assessment for MDS complete.
--- NOTE | 2025-01-21 13:49 | CASEMGMT ---
Social Work SW completed BIMS () and PHQ-2 () for MDS assessment. Anna Newman AFFIRMATIVE ACTION OFFICER EDGE BANDING MACHINE OFFBEARER
[2025-01-21] MEDS: Atorvastatin Calcium 80 MG Tablet PO (21:51)
[2025-01-22] MEDS: Levothyroxine 150 MCG Tablet 300 MCG PO (05:24)
[2025-01-22] MEDS: Gabapentin 300 MG Capsule PO (05:24)
[2025-01-22] MEDS: Acetaminophen 500 MG Tablet 1000 MG PO (05:24)
[2025-01-22 06:44] VITALS: PULSE 68; O2SAT 97
[2025-01-22] MEDS: Fluticasone/Salmeterol 232-14 Inhaler 1 PUFF INHALATION (08:20)
[2025-01-22] MEDS: Lactobacillis Acidophilus 1 CAP PO (08:22)
[2025-01-22] MEDS: Spironolactone 25 MG Tablet PO (08:22)
[2025-01-22] MEDS: guaiFENesin 600 MG Tablet PO (08:23)
[2025-01-22] MEDS: Tolterodine Tartrate 4 MG CAP.SA PO (08:23)
[2025-01-22] MEDS: Folic Acid 1 MG Tablet PO (08:23)
[2025-01-22] MEDS: APIXABAN 5 MG TABLET PO (08:24)
[2025-01-22] MEDS: Isosorbide Mononitrate 60 MG Tablet PO (08:24)
[2025-01-22] MEDS: Pantoprazole Sodium 40 MG Tablet PO (08:25)
[2025-01-22 08:26] VITALS: BP 109/63; PULSE 63
[2025-01-22] MEDS: Metoprolol(XL)Succ 50 MG Tablet PO (08:26)
[2025-01-22] MEDS: Montelukast 10 MG Tablet PO (08:26)
[2025-01-22] MEDS: Lisinopril 20 MG Tablet PO (08:27)
[2025-01-22 08:32] VITALS: BP 109/63; PULSE 63; RESP 18; TEMP 36.6; O2SAT 99
== END 2025-01-22 10:50 | disposition home or self-care (01) | DRG 560 ==
PROVIDERS: Admitting Provider Family Medicine Geriatric Medicine; PCP Family Medicine; Referring Provider Family Medicine Geriatric Medicine; Visit Provider Family Medicine Geriatric Medicine
DX: Z47.1 Aftercare following joint replacement surgery (principal); I82.402 Acute embolism and thrombosis of unspecified deep veins of left lower extremity; N18.31 Chronic kidney disease, stage 3a; M06.9 Rheumatoid arthritis, unspecified; E03.9 Hypothyroidism, unspecified; D50.9 Iron deficiency anemia, unspecified; I12.9 Hypertensive chronic kidney disease with stage 1 through stage 4 chronic kidney disease, or unspecified chronic kidney disease; J45.909 Unspecified asthma, uncomplicated; I25.10 Atherosclerotic heart disease of native coronary artery without angina pectoris; G47.33 Obstructive sleep apnea (adult) (pediatric); K21.9 Gastro-esophageal reflux disease without esophagitis; E78.00 Pure hypercholesterolemia, unspecified; E53.8 Deficiency of other specified B group vitamins; H81.10 Benign paroxysmal vertigo, unspecified ear; Z79.890 Hormone replacement therapy; Z79.01 Long term (current) use of anticoagulants; Z96.652 Presence of left artificial knee joint; N32.81 Overactive bladder; Z79.899 Other long term (current) drug therapy
CPT/HCPCS: 36415; 80048; 80061; 85025; 92610; 97110; 97116; 97162; 97166; 97530; 97535; 97802; A4216

== ENCOUNTER → 2025-02-14 | Outpatient (CLI) | payer MEDICARE, SELFPAY ==
[2025-02-14 14:59] LABS: Absolute Lymphocyte Count 1.35 X10^3/uL (0.83-4.51); Absolute Neutrophil Count 2.7 X10^3/uL (2.0-7.7); Basophil# 0.03 X10^3/uL; Basophil% 0.6 % (0-1); Eosinophil# 0.37 X10^3/uL; Eosinophils% 7.3 % (0-5); Hematocrit 32.2 % (37-47); Hemoglobin 11.8 g/dL (12.0-15.0); Lymphocyte # 1.35 X10^3/ul (0.83-4.51); Lymphocyte % 26.7 % (19-41); Mean Corp Hgb Conc 36.6 g/dL (32-36); Mean Corpuscular Hgb 35.8 pg (27.0-32.0); Mean Corpuscular Volume 97.6 fL (81-99); Mean Platelet Vol. 10.5 fl (6.2-12.0); Monocyte# 0.59 X10^3/uL; Monocyte% 11.7 % (0-10); NRBC Flagged by Analyzer 0 % (0-5); Neutrophil # 2.71 X10^3/uL (2.7-7.7); Neutrophil % 53.5 % (47-70); Platelet Count 247 K/mm3 (150-450); RBC Distribution Width CV 15.9 % (11.6-14.6); White Blood Count 5.1 K/mm3 (4.4-11.0)
[2025-02-14 15:23] LABS: Erythrocyte Sedimentation Rate 8 mm/hr (0-30)
[2025-02-14 15:44] LABS: CRP < 3.00 mg/L (0.0-3.0)
== END | disposition home or self-care (01) ==
PROVIDERS: PCP Family Medicine; Referring Provider Specialist; Visit Provider Specialist
DX: Z47.1 Aftercare following joint replacement surgery (principal); Z96.652 Presence of left artificial knee joint
CPT/HCPCS: 36415; 85025; 85652; 86140